=== PATIENT | female | born 1960 | race Two or more races ===

== ENCOUNTER → 2017-02-07 | Outpatient (REF) | payer MEDICARE, BC ==
[2017-02-15 00:07] LABS: BENZODIAZEPINES, URINE SCREEN See Final Results ng/mL (Cutoff=200); METHADONE, URINE SCREEN Negative ng/mL (Cutoff=300); pH, URINE 7.6 (4.5-8.9)
== END ==
LOC: M SFHCPLAZ 15:31
PROVIDERS: ATTEND Family Medicine
DX: Z51.81 Encounter for therapeutic drug level monitoring (principal); Z79.899 Other long term (current) drug therapy
CPT/HCPCS: 80307; G0463

== ENCOUNTER 2017-08-14 07:21 | Day surgery (SDC) | payer MEDICARE ==
[~2017-08-14] VITALS: Ht 157.5 cm; Wt 69.4 kg
[~2017-08-14 07:21] MED LIST: ADVI200T PO; EFFE150C PO; FISH1000 PO; VITA100072 PO; VITA500046 PO
[2017-08-14] MEDS ORDERED: ACETAMINOPHEN 650 MG SUPP PR ONE (07:30)
[2017-08-14] MEDS ORDERED: LR 1,000 ML IV SCH ×2 (07:30→09:30)
[2017-08-14] MEDS ORDERED: DIAZ5TAB (08:03)
[2017-08-14] MEDS ORDERED: fentaNYL 100 MCG/2 ML INJECTION (J3010) As Ordered ONE (08:15)
[2017-08-14] MEDS ORDERED: MIDAZOLAM INJ 5 MG/ML VIAL (J2250) As Ordered ONE (08:15)
[2017-08-14] MEDS ORDERED: PROPOFOL 200 MG/20 ML VIAL As Ordered ONE (08:15)
[2017-08-14] MEDS ORDERED: ACETAMINOPHEN 650 MG SUPP As Ordered ONE (08:19)
[2017-08-14 08:23] LABS: MEAN CORPUSCULAR HEMOGLOBIN 34.5 pg (27.0-33.0); MEAN CORPUSCULAR HGB CONC 34.2 g/dl (32.0-36.5); MEAN CORPUSCULAR VOLUME 100.7 fl (80.0-96.0); WHITE BLOOD COUNT 7.2 10^3/uL (4.0-10.0)
[2017-08-14] MEDS ORDERED: IBUP80TA PO (08:46)
[2017-08-14] MEDS ORDERED: KETOROLAC 30 MG/ML VIAL (J1885) As Ordered ONE (09:18)
[2017-08-14] MEDS ORDERED: MORPHINE 2 MG/ML 1ML SYRINGE As Ordered ONE (09:27)
[2017-08-14] MEDS ORDERED: KETOROLAC 30 MG/ML VIAL (J1885) IV PRN (09:30)
[2017-08-14] MEDS ORDERED: fentaNYL 100 MCG/2 ML INJECTION (J3010) IV PRN (09:30)
[2017-08-14] MEDS ORDERED: ONDANSETRON 4MG/2ML VIAL (J2405) IV PRN (09:30)
[2017-08-14] MEDS: MORPHINE 2 MG/ML 1ML SYRINGE IV SCH ×2 (09:30→10:32)
[2017-08-14] MEDS ORDERED: diphenhydrAMINE INJ 50MG/ML VIAL (J1200) As Ordered ONE (09:38)
[2017-08-14] MEDS ORDERED: diphenhydrAMINE INJ 50MG/ML VIAL (J1200) IV ONE (09:45)
[2017-08-14] MEDS ORDERED: PERCOCET 5MG/325MG TAB PO PRN (10:00)
--- NOTE | 2017-08-14 10:06 | RO ---
DATE OF PROCEDURE: 08/14/2017 PREOPERATIVE DIAGNOSIS: Postmenopausal bleeding. POSTOPERATIVE DIAGNOSES: 1. Postmenopausal bleeding. 2. Cervical stenosis. PROCEDURE: Dilatation and curettage (D and C), hysteroscopy. SURGEON: Dr. Ronald Rodriguez SENIOR FUNCTIONAL ANALYST: ANESTHESIA: Monitored anesthesia care (MAC). COMPLICATIONS: None. ESTIMATED BLOOD LOSS: Less than 10 mL. SPECIMEN SENT TO THE LAB: Endometrial curettings. Rachel is a 56-year-old with postmenopausal bleeding. After counseling, a decision was made for D and C and hysteroscopy. DESCRIPTION OF PROCEDURE: After obtaining informed consent, the patient was taken to the operating room where anesthetic was found to be adequate. She was then draped and prepped in the usual sterile fashion in dorsal lithotomy position. At this point, a straight catheter of the bladder was performed for approximately 75 mL of very concentrated urine. A weighted speculum was placed in the posterior fornix of the vagina. Using a Arriola retractor, the anterior lip of the cervix was then grasped with a ring forceps. Then, the cervix was serially dilated using a small probe. Then, the normal uterine dilators. The uterus was sounded to approximately 6 cm in size. Cervix serially dilated. Hysteroscope was inserted. Atrophic endometrial lining noted. A sharp curettage was done. The tissues were sent to pathology for final diagnosis. Good hemostasis noted. At this point, all instruments removed and the patient was transferred to the recovery room in stable condition.
[2017-08-14 10:40] VITALS: BP 144/86
[2017-08-14] MEDS ORDERED: IBUPROFEN 800 MG TAB PO SCH (15:00)
== END 2017-08-14 10:43 | disposition home or self-care (01) ==
LOC: M SDC 07:21
PROVIDERS: ATTEND Obstetrics & Gynecology
DX: N95.0 Postmenopausal bleeding (principal); N88.2 Stricture and stenosis of cervix uteri; M50.23 Other cervical disc displacement, cervicothoracic region; M51.26 Other intervertebral disc displacement, lumbar region; F41.9 Anxiety disorder, unspecified; R51 Headache; Z79.899 Other long term (current) drug therapy; Z78.0 Asymptomatic menopausal state; Z72.0 Tobacco use
CPT/HCPCS: 36415; 58558; 85027; 86850; 86900; 86901; 88305; 96374; 96375; J1200; J1885; J2250; J2405; J3010

== ENCOUNTER → 2018-01-30 | Outpatient (CLI) | payer MEDICARE | LOC: M RAD 13:51 | DX: F17.210 Nicotine dependence, cigarettes, uncomplicated (principal) | CPT/HCPCS: G0297 ==

== ENCOUNTER → 2018-02-01 | Outpatient (REF) | payer MEDICARE ==
[2018-02-01 18:12] LABS: APPEARANCE, URINE CLEAR (CLEAR); BACTERIA, URINE AUTO NEGATIVE (NEGATIVE); BILIRUBIN, URINE AUTO NEGATIVE (NEGATIVE); BLOOD, URINE BLOOD 1+ (NEGATIVE); COLOR, URINE STRAW (YELLOW); GLUCOSE, URINE (UA) AUTO NEGATIVE (NEGATIVE); KETONE, URINE AUTO NEGATIVE (NEGATIVE); LEUKOCYTE ESTERASE, URINE AUTO NEGATIVE (NEGATIVE); NITRITE, URINE AUTO NEGATIVE (NEGATIVE); PROTEIN, URINE AUTO NEGATIVE (NEGATIVE); RBC, URINE AUTO 1 /HPF (0-3); SPECIFIC GRAVITY URINE AUTO 1.002 (1.002-1.035); SQUAMOUS EPITHELIAL CELL UR AU 1 /HPF (0-6); UROBILINOGEN, URINE AUTO 0.2 mg/dL (0.0-2.0); WBC, URINE AUTO 0 /HPF (0-3)
== END ==
LOC: M SFHCPLAZ 16:51
DX: R35.0 Frequency of micturition (principal)
CPT/HCPCS: 81001

== ENCOUNTER → 2018-02-25 | Outpatient (CLI) | payer MEDICARE | LOC: M RAD 15:41 | DX: M25.552 Pain in left hip (principal); R93.6 Abnormal findings on diagnostic imaging of limbs | CPT/HCPCS: 73502 ==

== ENCOUNTER → 2018-03-12 | Outpatient (CLI) | payer MEDICARE | LOC: M RAD 09:51 | DX: S32.415A Nondisplaced fracture of anterior wall of left acetabulum, initial encounter for closed fracture (principal); R60.0 Localized edema; M51.36 Other intervertebral disc degeneration, lumbar region; M48.061 Spinal stenosis, lumbar region without neurogenic claudication; M51.26 Other intervertebral disc displacement, lumbar region; M51.27 Other intervertebral disc displacement, lumbosacral region; Q76.49 Other congenital malformations of spine, not associated with scoliosis; S79.912D Unspecified injury of left hip, subsequent encounter; R29.898 Other symptoms and signs involving the musculoskeletal system; J98.11 Atelectasis; M19.041 Primary osteoarthritis, right hand; M19.042 Primary osteoarthritis, left hand; M25.741 Osteophyte, right hand; M25.742 Osteophyte, left hand; M79.641 Pain in right hand; M79.642 Pain in left hand; W19.XXXA Unspecified fall, initial encounter; Y92.9 Unspecified place or not applicable; Y93.9 Activity, unspecified | CPT/HCPCS: 72148 ==

== ENCOUNTER → 2018-03-12 | Outpatient (CLI) | payer MEDICARE | LOC: M RAD 09:57 | DX: M19.041 Primary osteoarthritis, right hand (principal); M19.042 Primary osteoarthritis, left hand; M25.741 Osteophyte, right hand; M25.742 Osteophyte, left hand; M79.641 Pain in right hand; M79.642 Pain in left hand ==

== ENCOUNTER → 2018-08-19 | Outpatient (REF) | payer MEDICARE | LOC: M SFHCPLAZ 12:17 | DX: C44.519 Basal cell carcinoma of skin of other part of trunk (principal); C44.622 Squamous cell carcinoma of skin of right upper limb, including shoulder; L57.8 Other skin changes due to chronic exposure to nonionizing radiation; D22.5 Melanocytic nevi of trunk; L57.0 Actinic keratosis; J34.89 Other specified disorders of nose and nasal sinuses | CPT/HCPCS: 88305 ==

== ENCOUNTER → 2018-09-10 | Outpatient (CLI) | payer MEDICARE | LOC: M RAD 14:16 | DX: M48.062 Spinal stenosis, lumbar region with neurogenic claudication (principal); M51.36 Other intervertebral disc degeneration, lumbar region; M51.26 Other intervertebral disc displacement, lumbar region | CPT/HCPCS: 72082 ==

== ENCOUNTER → 2018-09-24 | Outpatient (REF) | payer MEDICARE | LOC: M LAB REF 18:42 | DX: D23.61 Other benign neoplasm of skin of right upper limb, including shoulder (principal); L90.5 Scar conditions and fibrosis of skin | CPT/HCPCS: 88305 ==

== ENCOUNTER → 2018-11-12 | Outpatient (CLI) | payer MEDICARE ==
[~2018-11-12] MED LIST changes: +CYCL10TA PO; +DIAZ5TAB; -EFFE150C PO; +EFFE150C2 PO; +IBUP80TA PO; +PERC5TAB12 PO; +ZITHTAB PO
[2018-11-12 08:55] LABS: CHOLESTEROL RISK RATIO 2.848 (<5); FREE T4 0.69 NG/DL (0.76-1.46); MAGNESIUM LEVEL 2.2 MG/DL (1.8-2.4); THYROID STIMULATING HORMONE 1.41 uIU/ML (0.358-3.740)
[2018-11-12 09:36] LABS: TOTAL 25(OH) VITAMIN D 31.7 NG/ML (30.0-100.0)
== END ==
LOC: M LAB 07:28
PROVIDERS: ATTEND Family Medicine
DX: Z01.818 Encounter for other preprocedural examination (principal); L67.8 Other hair color and hair shaft abnormalities; Z13.220 Encounter for screening for lipoid disorders; E55.9 Vitamin D deficiency, unspecified; E53.8 Deficiency of other specified B group vitamins; Z13.1 Encounter for screening for diabetes mellitus; M47.26 Other spondylosis with radiculopathy, lumbar region; M48.062 Spinal stenosis, lumbar region with neurogenic claudication; M54.5 Low back pain; F33.1 Major depressive disorder, recurrent, moderate; F41.9 Anxiety disorder, unspecified; E78.5 Hyperlipidemia, unspecified; M19.90 Unspecified osteoarthritis, unspecified site; B00.1 Herpesviral vesicular dermatitis; D75.89 Other specified diseases of blood and blood-forming organs; R31.29 Other microscopic hematuria

== ENCOUNTER → 2018-11-12 | Outpatient (REF) | payer MEDICARE ==
[2018-11-12 19:38] LABS: HEMATOCRIT 39.7 % (36.0-47.0)
[2018-11-12 19:40] LABS: APPEARANCE, URINE CLEAR (CLEAR); BACTERIA, URINE AUTO NEGATIVE (NEGATIVE); BILIRUBIN, URINE AUTO NEGATIVE (NEGATIVE); BLOOD, URINE BLOOD NEGATIVE (NEGATIVE); COLOR, URINE AMBER (YELLOW); GLUCOSE, URINE (UA) AUTO NEGATIVE (NEGATIVE); KETONE, URINE AUTO TRACE mg/dL (NEGATIVE); LEUKOCYTE ESTERASE, URINE AUTO NEGATIVE (NEGATIVE); NITRITE, URINE AUTO NEGATIVE (NEGATIVE); PROTEIN, URINE AUTO NEGATIVE (NEGATIVE); RBC, URINE AUTO 13 /HPF (0-3); SQUAMOUS EPITHELIAL CELL UR AU 1 /HPF (0-6); TRANSITIONAL EPITHELIAL AUTO <1 /HPF; WBC, URINE AUTO 0 /HPF (0-3)
[2018-11-12 21:13] LABS: FREE T4 0.69 NG/DL (0.76-1.46); THYROID STIMULATING HORMONE 1.3 uIU/ML (0.358-3.740)
== END ==
LOC: M SFHCPLAZ 13:59 → EEVIPCON 13:59
PROVIDERS: ATTEND Family Medicine
DX: Z01.818 Encounter for other preprocedural examination (principal); D75.89 Other specified diseases of blood and blood-forming organs; R31.29 Other microscopic hematuria

== ENCOUNTER → 2018-11-12 | Outpatient (CLI) | payer MEDICARE ==
[2018-11-12 08:15] LABS: BASO # 0.1 10^3/uL (0.0-0.2); BASO % 0.8 % (0.0-1.0); EOS # 0.2 10^3/uL (0.0-0.50); EOS % 3.3 % (0.0-3.0); HEMATOCRIT 38.4 % (36.0-47.0); HEMOGLOBIN 12.7 g/dl (12.0-15.5); LYMPH # 1.6 10^3/uL (1.5-4.5); LYMPH % 24.5 % (24.0-44.0); MEAN CORPUSCULAR HEMOGLOBIN 34.2 pg (27.0-33.0); MEAN CORPUSCULAR HGB CONC 33.1 g/dl (32.0-36.5); MEAN CORPUSCULAR VOLUME 103.5 fl (80.0-96.0); MONO # 0.5 10^3/uL (0.0-0.8); MONO % 7.9 % (0.0-5.0); NEUTROPHILS # 4.1 10^3/uL (1.8-7.7); PLATELET COUNT, AUTOMATED 236 10^3/uL (150-450); RED BLOOD COUNT 3.71 10^6/uL (4.00-5.40); WHITE BLOOD COUNT 6.6 10^3/uL (4.0-10.0)
[2018-11-12 08:19] LABS: AMORPHOUS SEDIMENT SMALL (NEGATIVE); APPEARANCE, URINE HAZY (CLEAR); BACTERIA, URINE AUTO NEGATIVE (NEGATIVE); BILIRUBIN, URINE AUTO NEGATIVE (NEGATIVE); BLOOD, URINE BLOOD NEGATIVE (NEGATIVE); COLOR, URINE YELLOW (YELLOW); GLUCOSE, URINE (UA) AUTO NEGATIVE (NEGATIVE); KETONE, URINE AUTO NEGATIVE (NEGATIVE); LEUKOCYTE ESTERASE, URINE AUTO NEGATIVE (NEGATIVE); NITRITE, URINE AUTO NEGATIVE (NEGATIVE); PROTEIN, URINE AUTO NEGATIVE (NEGATIVE); RBC, URINE AUTO 5 /HPF (0-3); SPECIFIC GRAVITY URINE AUTO 1.018 (1.002-1.035); SQUAMOUS EPITHELIAL CELL UR AU 1 /HPF (0-6); UROBILINOGEN, URINE AUTO 0.2 mg/dL (0.0-2.0); WBC, URINE AUTO 0 /HPF (0-3)
[2018-11-12 08:30] LABS: INR 0.93; PROTHROMBIN TIME 12.6 SECONDS (12.1-14.4)
[2018-11-12 08:31] LABS: PARTIAL THROMBOPLASTIN TIME 33.7 SECONDS (25.4-37.6)
[2018-11-12 08:35] LABS: HEMOGLOBIN A1c 5.4 %
[2018-11-12 08:47] LABS: ALBUMIN 3.7 GM/DL (3.2-5.2); ALT/SGPT 26 U/L (12-78); BILIRUBIN,TOTAL 0.3 MG/DL (0.2-1.0); BLOOD UREA NITROGEN 11 MG/DL (7-18); CALCIUM LEVEL 9.1 MG/DL (8.8-10.2); CARBON DIOXIDE LEVEL 29 MEQ/L (21-32); CHLORIDE LEVEL 105 MEQ/L (98-107); CREATININE FOR GFR 0.81 MG/DL (0.55-1.30); GLOMERULAR FILTRATION RATE > 60.0 (>45); GLUCOSE, FASTING 106 MG/DL (70-100); POTASSIUM SERUM 4.2 MEQ/L (3.5-5.1); SODIUM LEVEL 138 MEQ/L (136-145)
== END ==
LOC: M LAB 07:24
PROVIDERS: ATTEND Physician Assistant
DX: Z01.818 Encounter for other preprocedural examination (principal); M48.062 Spinal stenosis, lumbar region with neurogenic claudication; M47.26 Other spondylosis with radiculopathy, lumbar region; M54.5 Low back pain; F33.1 Major depressive disorder, recurrent, moderate; F41.9 Anxiety disorder, unspecified; E78.5 Hyperlipidemia, unspecified; M19.90 Unspecified osteoarthritis, unspecified site; E55.9 Vitamin D deficiency, unspecified; E83.42 Hypomagnesemia; B00.1 Herpesviral vesicular dermatitis; D75.89 Other specified diseases of blood and blood-forming organs; R31.29 Other microscopic hematuria

== ENCOUNTER → 2019-01-14 | Outpatient (REF) | payer MEDICARE ==
[2019-01-14 14:03] LABS: AMORPHOUS SEDIMENT SMALL (NEGATIVE); APPEARANCE, URINE HAZY (CLEAR); BACTERIA, URINE AUTO NEGATIVE (NEGATIVE); BILIRUBIN, URINE AUTO 1+ (NEGATIVE); BLOOD, URINE BLOOD NEGATIVE (NEGATIVE); CALCIUM OXALATE CRYSTALS SMALL; COLOR, URINE AMBER (YELLOW); GLUCOSE, URINE (UA) AUTO NEGATIVE (NEGATIVE); KETONE, URINE AUTO TRACE mg/dL (NEGATIVE); LEUKOCYTE ESTERASE, URINE AUTO NEGATIVE (NEGATIVE); MUCUS, URINE SMALL (NEGATIVE); NITRITE, URINE AUTO NEGATIVE (NEGATIVE); PROTEIN, URINE AUTO 1+ mg/dL (NEGATIVE); RBC, URINE AUTO 18 /HPF (0-3); SQUAMOUS EPITHELIAL CELL UR AU 2 /HPF (0-6); WBC, URINE AUTO 2 /HPF (0-3)
[2019-01-14 14:58] LABS: FREE T4 0.8 NG/DL (0.76-1.46); THYROID STIMULATING HORMONE 1.55 uIU/ML (0.358-3.740)
== END ==
LOC: M SFHCPLAZ 12:56
PROVIDERS: ATTEND Family Medicine
DX: R31.29 Other microscopic hematuria (principal); R79.89 Other specified abnormal findings of blood chemistry

== ENCOUNTER → 2019-01-23 | Outpatient (CLI) | payer MEDICARE ==
--- NOTE | 2019-01-28 13:50 | DEXA ---
AP SPINE L1 - L4 1.250 0.4 1.7 LT FEMUR TOTAL 1.004 0.0 0.9 LT NECK 0.896 -1.0 0.2 RT FEMUR TOTAL 0.986 -0.2 0.8 RT NECK 0.880 -1.1 0.1 TOTAL BODY TOTAL OTHER COMMENTS: Normal bone densitometry of the spine. There is low bone density of the hips. The density of the spine has decreased 4.6% since 07/16/2007. The density of the left hip has decreased 13.1% since 07/16/2007. The density of the right hip has decreased 11.8% since 07/16/2007. The decreased density of the spine does represent a significant change. The decreased density of the left hip does represent a significant change. The decreased density of the right hip does represent a significant change. FOLLOW-UP: Recommendation for the next bone density exam: 2 years. GIRMA
--- NOTE | 2019-01-29 14:24 | REPMRS ---
Patient History The patient states she has not had a clinical breast exam in over a year. Patient is postmenopausal, has history of basal and squamous cell skin cancer at age 57, and is nulliparous. Family history of breast cancer at age 70 in maternal grandmother, pancreatic cancer at age 70 in paternal uncle. Benign lumpectomy of the right breast, 1993. Taking estrogen for 5 years. 3D TOMOSYNTHESIS WAS PERFORMED. Digital Woman Screen Mammo: January 23, 2019 - Exam #: [id number] Bilateral CC and MLO view(s) were taken. Technologist: Karla Gleason, Technologist Prior study comparison: 2017, bilateral screening 3D/tomosynthesis, performed at [facility]. FINDINGS: There are scattered fibroglandular densities. There has been no change in the appearance of the mammogram from the prior studies. There is a mild amount of residual fibroglandular tissue which is fairly symmetric. There is no interval development of dominant mass, architectural distortion, or clustered microcalcification suggestive of malignancy. Assessment: BI-RADS/ACR category 1 mammogram. Negative Mammogram. Recommendation Routine screening mammogram in 1 year (for women over age 40). This mammogram was interpreted with the aid of an FDA-approved computer-aided dectection system. Electronically Signed By: Isai Oliveira MD 01/29/19 [id number]
== END ==
LOC: M WHC 14:27
PROVIDERS: ATTEND Family Medicine
DX: Z12.31 Encounter for screening mammogram for malignant neoplasm of breast (principal); Z13.820 Encounter for screening for osteoporosis; M85.80 Other specified disorders of bone density and structure, unspecified site; S22.41XD Multiple fractures of ribs, right side, subsequent encounter for fracture with routine healing; X58.XXXD Exposure to other specified factors, subsequent encounter; Y92.89 Other specified places as the place of occurrence of the external cause; Z78.0 Asymptomatic menopausal state; Z85.828 Personal history of other malignant neoplasm of skin; Z92.23 Personal history of estrogen therapy

== ENCOUNTER → 2019-01-30 | Outpatient (REF) | payer MEDICARE | LOC: M LAB REF 18:32 | PROVIDERS: ATTEND Dermatology | DX: C44.719 Basal cell carcinoma of skin of left lower limb, including hip (principal) ==

== ENCOUNTER → 2019-01-31 | Outpatient (CLI) | payer MEDICARE ==
[~2019-01-31] MED LIST changes: +ISOVUE-370 76% 125ML VIAL (Q9967 PER ML) As Ordered ONE
--- NOTE | 2019-01-31 15:08 | REP ---
Clinical: Microscopic hematuria. Technique: Axial precontrast, contrast enhanced, and delayed images of the abdomen and pelvis using 100 ml Isovue 370 intravenous contrast material with coronal and sagittal re-formations as well as 3-D CT urogram. Comparison: 02/12/2018. Findings: Evaluation of the urinary tract system including kidneys/ureters and bladder appears normal. Specifically, no hydroureteronephrosis, perinephric stranding, intrarenal or obstructing ureteral calculi are identified. No cystic or mass lesions are identified. Delayed images demonstrate normal collecting system cannot find. Bladder is grossly unremarkable. Liver, spleen, pancreas, gallbladder, and bilateral adrenal glands are normal. The enteric system is without obstruction or acute inflammatory process. Scattered sigmoid diverticula noted without acute diverticulitis. Pelvis demonstrates normal bladder and age-appropriate uterus/adnexa. No pelvic fluid or ascites. No free air. No adenopathy. Atherosclerotic changes to the aorta and vasculature without aneurysm or dissection. Musculoskeletal structures demonstrate age-related degenerative changes and evidence for prior partial lumbar laminectomy. Impression: 1. Normal appearance to the urinary tract system in all phases of enhancement. 2. Few scattered sigmoid diverticula without acute diverticulitis. Electronically Signed by Deep Patel MD 01/31/2019 02:59 P
== END ==
LOC: M RAD 13:56
PROVIDERS: ATTEND Family Medicine
DX: R31.29 Other microscopic hematuria (principal); K57.30 Diverticulosis of large intestine without perforation or abscess without bleeding
CPT/HCPCS: 74178; Q9967

== ENCOUNTER → 2019-02-11 | Outpatient (REF) | payer MEDICARE ==
[~2019-02-11] MED LIST changes: -ISOVUE-370 76% 125ML VIAL (Q9967 PER ML) As Ordered ONE; +VITA100018 PO; -VITA100072 PO
[2019-02-11 18:36] LABS: APPEARANCE, URINE CLEAR (CLEAR); BACTERIA, URINE AUTO 1+ (NEGATIVE); BILIRUBIN, URINE AUTO NEGATIVE (NEGATIVE); BLOOD, URINE BLOOD NEGATIVE (NEGATIVE); COLOR, URINE STRAW (YELLOW); GLUCOSE, URINE (UA) AUTO NEGATIVE (NEGATIVE); KETONE, URINE AUTO NEGATIVE (NEGATIVE); LEUKOCYTE ESTERASE, URINE AUTO NEGATIVE (NEGATIVE); NITRITE, URINE AUTO NEGATIVE (NEGATIVE); PROTEIN, URINE AUTO NEGATIVE (NEGATIVE); RBC, URINE AUTO 0 /HPF (0-3); SPECIFIC GRAVITY URINE AUTO 1.003 (1.002-1.035); SQUAMOUS EPITHELIAL CELL UR AU 0 /HPF (0-6); UROBILINOGEN, URINE AUTO 0.2 mg/dL (0.0-2.0); WBC, URINE AUTO 0 /HPF (0-3)
== END ==
LOC: M SMT 17:20
PROVIDERS: ATTEND Nurse Practitioner Family
DX: R31.29 Other microscopic hematuria (principal)

== ENCOUNTER → 2019-05-13 | Outpatient (CLI) | payer MEDICARE ==
--- NOTE | 2019-05-14 07:58 | REP ---
Low-dose screening chest CT without contrast: History: Nicotine dependence. Comparison chest CT study February 12, 2018 and January 30, 2018. CT findings: There are scattered mild emphysematous bullous changes in the lower lobes bilaterally. These are unchanged from the study done January 30, 2018. There are multiple healed rib fractures noted on the right. The right 7th anterolateral rib fracture is ununited. No pulmonary nodule or mass lesion has developed. Study is otherwise unremarkable. Impression: Lung-RADS category 2 benign findings. Repeat screening study recommended in 1 year. Electronically Signed by Junior Sahni MD 05/14/2019 09:28 A
== END ==
LOC: M RAD 13:50
PROVIDERS: ATTEND Family Medicine
DX: Z12.2 Encounter for screening for malignant neoplasm of respiratory organs (principal); F17.210 Nicotine dependence, cigarettes, uncomplicated

== ENCOUNTER 2019-06-05 08:13 | Day surgery (SDC) | payer MEDICARE ==
[~2019-06-05] VITALS: Ht 157.5 cm; Wt 73.5 kg
[~2019-06-05 08:13] MED LIST changes: +ESTR1TAB PO; +FOLI1TAB11 PO; +MAGN400C PO; +NS 1,000 ML IV ONE; +PROG1CAP8 PO; +VITA-158 PO; +VITA400C53 PO; +VITA500038 PO
[2019-06-05] MEDS ORDERED: PROPOFOL 200 MG/20 ML VIAL As Ordered ONE (09:08)
--- NOTE | 2019-06-05 09:20 | ROOR ---
Patient Name: Rachel Escalera Procedure Date: 06/05/2019 9:03 AM Date of : 1960 Age: 58 Room: [facility] Gender: Female Note Status: Finalized Procedure: Colonoscopy Indications: Clinically significant diarrhea of unexplained origin Providers: Bradley Herrmann Jr, MD Referring MD: Pennie Harrell MD Requesting Provider: Medicines: Propofol per Anesthesia Complications: No immediate complications. Procedure: Pre-Anesthesia Assessment: - Prior to the procedure, a History and Physical was performed, and patient medications and allergies were reviewed. The patient is competent. The risks and benefits of the procedure and the sedation options and risks were discussed with the patient. All questions were answered and informed consent was obtained. Patient identification and proposed procedure were verified by the physician and the nurse in the pre-procedure area and in the procedure room. Mental Status Examination: alert and oriented. Airway Examination: normal oropharyngeal airway and neck mobility. Respiratory Examination: clear to auscultation. CV Examination: normal. ASA Grade Assessment: II - A patient with mild systemic disease. After reviewing the risks and benefits, the patient was deemed in satisfactory condition to undergo the procedure. The anesthesia plan was to use moderate sedation / analgesia (conscious sedation). Immediately prior to administration of medications, the patient was re-assessed for adequacy to receive sedatives. The heart rate, respiratory rate, oxygen saturations, blood pressure, adequacy of pulmonary ventilation, and response to care were monitored throughout the procedure. The physical status of the patient was re-assessed after the procedure. The Colonoscope was introduced through the anus and advanced to the cecum, identified by appendiceal orifice and ileocecal valve. The colonoscopy was performed without difficulty. The patient tolerated the procedure well. The quality of the bowel preparation was adequate. Findings: The rectum, sigmoid colon, descending colon, ascending colon, cecum, appendiceal orifice and ileocecal valve appeared normal. Two polyps were found in the recto-sigmoid colon and transverse colon. The polyps were small in size. These polyps were removed with a cold snare. Resection and retrieval were complete. Impression: - The rectum, sigmoid colon, descending colon, ascending colon, cecum, appendiceal orifice and ileocecal valve are normal. - Two small polyps at the recto-sigmoid colon and in the transverse colon, removed with a cold snare. Resected and retrieved. Recommendation: - Repeat colonoscopy in 5 years for surveillance based on pathology results. Bradley Herrmann MD Bradley Herrmann Jr, MD 06/05/2019 9:20:33 AM Electronically signed by Bradley Herrmann Jr, MD Number of Addenda: 0 Note Initiated On: 06/05/2019 9:03 AM Estimated Blood Loss: Estimated blood loss: none.
[2019-06-05 09:40] VITALS: BP 142/70
== END 2019-06-05 10:04 | disposition home or self-care (01) ==
LOC: M OPP 08:13
PROVIDERS: ATTEND Surgery
DX: R19.7 Diarrhea, unspecified (principal); D12.6 Benign neoplasm of colon, unspecified; R14.0 Abdominal distension (gaseous); F41.9 Anxiety disorder, unspecified; F32.9 Major depressive disorder, single episode, unspecified; M54.9 Dorsalgia, unspecified; G89.29 Other chronic pain; Z79.899 Other long term (current) drug therapy; Z87.891 Personal history of nicotine dependence

== ENCOUNTER → 2019-10-22 | Outpatient (REF) | payer MEDICARE ==
[~2019-10-22] MED LIST changes: -NS 1,000 ML IV ONE
== END ==
LOC: M PLALAB 14:04
PROVIDERS: ATTEND Nurse Practitioner Women's Health
DX: Z12.4 Encounter for screening for malignant neoplasm of cervix (principal)
CPT/HCPCS: 87624; G0123

== ENCOUNTER → 2019-11-18 | Outpatient (REF) | payer OTHER | LOC: M LABDRAWP 14:48 | PROVIDERS: ATTEND Orthopaedic Surgery | DX: R89.9 Unspecified abnormal finding in specimens from other organs, systems and tissues (principal) ==

== ENCOUNTER → 2019-11-18 | Outpatient (REF) | payer OTHER ==
[2019-11-18 15:31] LABS: HEMATOCRIT 42.5 % (36.0-47.0)
[2019-11-18 16:30] LABS: CHOLESTEROL RISK RATIO 3.164 (<5); FREE T4 0.72 NG/DL (0.76-1.46); MAGNESIUM LEVEL 1.9 MG/DL (1.8-2.4); THYROID STIMULATING HORMONE 1.42 uIU/ML (0.358-3.740)
[2019-11-18 16:38] LABS: TOTAL 25(OH) VITAMIN D 55.8 NG/ML (30.0-100.0)
== END ==
LOC: M SFHCPLAZ 14:37
PROVIDERS: ATTEND Family Medicine
DX: L65.9 Nonscarring hair loss, unspecified (principal); E78.2 Mixed hyperlipidemia; R20.2 Paresthesia of skin; E55.9 Vitamin D deficiency, unspecified; R89.9 Unspecified abnormal finding in specimens from other organs, systems and tissues

== ENCOUNTER → 2020-02-23 | Outpatient (CLI) | payer OTHER ==
[~2020-02-23] MED LIST changes: +CYCL-707 PO; -CYCL10TA PO
[2020-02-23 17:09] LABS: ALBUMIN 3.2 GM/DL (3.2-5.2); ALT/SGPT 32 U/L (12-78); BILIRUBIN,TOTAL 0.1 MG/DL (0.2-1.0); BLOOD UREA NITROGEN 15 MG/DL (7-18); CARBON DIOXIDE LEVEL 29 MEQ/L (21-32); CHLORIDE LEVEL 100 MEQ/L (98-107); GLOMERULAR FILTRATION RATE > 60.0 (>45); GLUCOSE, FASTING 114 MG/DL (70-100); SODIUM LEVEL 135 MEQ/L (136-145); TOTAL PROTEIN 7.1 GM/DL (6.4-8.2)
== END ==
LOC: M LAB 16:19
PROVIDERS: ATTEND Orthopaedic Surgery
DX: M48.061 Spinal stenosis, lumbar region without neurogenic claudication (principal)

== ENCOUNTER 2020-03-01 08:52 | Emergency (ER) | payer OTHER ==
[2020-03-01] MEDS ORDERED: OXYC10TA3 (09:02)
[2020-03-01] MEDS ORDERED: TIZA4TAB4 (09:02)
[2020-03-01] MEDS ORDERED: LIDOCAINE 5% (LIDODERM) PATCH TD ONE (09:30)
[2020-03-01] MEDS ORDERED: KETOROLAC 60 MG/2 ML VIAL IM ONE (09:30)
[2020-03-01] MEDS ORDERED: NORCO, ANEXSIA 5/325MG TABLET (HYDROcodone/ACETAMINOPHEN) PO ONE (09:30)
[2020-03-01] MEDS ORDERED: methylPREDNISolone INJ 125 MG/2 ML VIAL (J2930) IM ONE (09:30)
[2020-03-01] MEDS ORDERED: GABAPENTIN 300 MG CAP PO ONE (09:45)
[2020-03-01 10:08] VITALS: BP 152/67
[2020-03-01] MEDS ORDERED: CYCL-707 PO (10:21)
[2020-03-01] MEDS ORDERED: NEUR300C PO (10:21)
[2020-03-01] MEDS ORDERED: NORC1TAB7 PO (10:21)
[2020-03-01] MEDS ORDERED: LIDO5DIS41 TD (10:22)
[2020-03-01] MEDS ORDERED: **NOTE PATIENT COMMENT** MISC XX SCH (21:00)
== END 2020-03-01 10:41 | disposition home or self-care (01) ==
LOC: M ED 08:52
DX: M54.41 Lumbago with sciatica, right side (principal); G89.29 Other chronic pain; Z79.899 Other long term (current) drug therapy
CPT/HCPCS: 36415; 96372; 99283; J1885; J2930

== ENCOUNTER → 2020-04-02 | Outpatient (REF) | payer OTHER ==
[~2020-04-02] MED LIST changes: +LIDO5DIS41 TD; +NEUR300C PO; +NORC1TAB7 PO; +OXYC10TA3; +TIZA4TAB4
[2020-04-02 17:48] LABS: ALBUMIN 3.5 GM/DL (3.2-5.2); ALT/SGPT 24 U/L (12-78); BILIRUBIN,TOTAL 0.5 MG/DL (0.2-1.0); BLOOD UREA NITROGEN 12 MG/DL (7-18); CALCIUM LEVEL 9.3 MG/DL (8.8-10.2); CARBON DIOXIDE LEVEL 29 MEQ/L (21-32); CHLORIDE LEVEL 103 MEQ/L (98-107); CREATININE FOR GFR 0.83 MG/DL (0.55-1.30); FREE T4 1.06 NG/DL (0.76-1.46); GLOMERULAR FILTRATION RATE > 60.0 (>45); GLUCOSE, FASTING 97 MG/DL (70-100); POTASSIUM SERUM 4.3 MEQ/L (3.5-5.1); SODIUM LEVEL 139 MEQ/L (136-145); TOTAL PROTEIN 7.4 GM/DL (6.4-8.2)
== END ==
LOC: M PLALAB 14:21
PROVIDERS: ATTEND Family Medicine
DX: L65.9 Nonscarring hair loss, unspecified (principal)

== ENCOUNTER → 2020-04-02 | Outpatient (CLI) | payer OTHER ==
--- NOTE | 2020-04-03 08:19 | REPPI ---
REASON: Pain after trauma. There is a smoothly marginated, well-corticated ossific density distal to the distal tip of the medial malleolus. There is no acute fracture. The mortise is intact. There is no evidence of soft tissue swelling. Plantar and retrocalcaneal heel spurs are present. Degenerative changes are seen involving the imaged portion of the foot. IMPRESSION: Chronic changes as described above. Electronically Signed by Giorgi Rebollar DO 04/05/2020 09:53 A
--- NOTE | 2020-04-03 08:36 | REPPI ---
REASON FOR EXAM: Pain. COMPARISON: None. FINDINGS: No acute fracture or destructive osseous lesion. Electronically Signed by Giorgi Rebollar DO 04/05/2020 09:54 A
== END ==
LOC: M PLAIMG 14:24
PROVIDERS: ATTEND Family Medicine
DX: M79.604 Pain in right leg (principal); M25.571 Pain in right ankle and joints of right foot; L65.9 Nonscarring hair loss, unspecified
CPT/HCPCS: 36415; 73590; 73610; 80053; 84439; 84443; G0463

== ENCOUNTER → 2020-04-04 | Outpatient (CLI) | payer OTHER | LOC: M LABSMTC 11:14 | PROVIDERS: ATTEND Anesthesiology | DX: Z11.59 Encounter for screening for other viral diseases (principal) | CPT/HCPCS: C9803; U0003 ==

== ENCOUNTER → 2020-04-07 | Outpatient (CLI) | payer OTHER ==
[~2020-04-07] MED LIST changes: +BUPIVACAINE HCL 0.25% 30ML VIAL As Ordered ONE; +ISOVUE-M 300 61% 15ML VIAL As Ordered ONE; +LIDOCAINE 1% SDV 30ML VIAL As Ordered ONE; +dexameTHASONE 10MG/1ML VIAL PRES.FREE (J1100 PER 1MG) As Ordered ONE; +diazePAM 5 MG TAB As Ordered ONE; +diphenhydrAMINE 25MG CAP As Ordered ONE; +oxyCODONE 5MG TAB As Ordered ONE
--- NOTE | 2020-04-07 16:18 | REP ---
C-ARM VIEWS RIGHT SACROILIAC JOINT: Multiple C-arm views right sacroiliac joint performed during injection by Dr. Hobson. Needle overlies the right sacroiliac joint. There is evidence of prior surgery in the lower lumbar spine with metallic rods and multiple pedicle screws noted. 59 seconds fluoroscopy time utilized. Electronically Signed by Isai Oliveira MD 04/08/2020 07:20 P
--- NOTE | 2020-04-08 00:49 | ECWPNPC ---
PATIENT NAME: JAMES GRESHAM : 1960 GENDER: FEMALE VISIT DATE: 04/07/2020 DISCHARGE DATE: 04/07/20 1541 VISIT LOCKED DATE TIME: PHYSICIAN: KATJA RODRIGUEZ MD RESOURCE: KATJA RODRIGUEZ MD REASON FOR APPOINTMENT 1. RIGHT SIJ HISTORY OF PRESENT ILLNESS PAIN CENTER INTAKE QUESTIONS: DO YOU HAVE A HISTORY OF MRSA? :NO DO YOU TAKE A BLOOD THINNERS? :NO DO YOU HAVE ANY BLEEDING DISORDERS? :NO ANY NEW NUMBNESS OR WEAKNESS IN YOUR LEGS OR ARMS? :YES ANY PACEMAKER,DEFIBRILLATOR, OR DORSAL COLUMN STIMULATOR? :NO DO YOU HAVE ANY RASHES OR OPEN SORES? :NO ARE YOU ALLERGIC TO IV DYE? :NO ARE YOU DIABETIC? :NO ANY NEW PROBLEMS WITH YOUR MEDICATIONS? :NO HAVE YOU RECEIVED A VACCINE IN THE PAST 30 DAYS? :NO DO YOU PLAN TO RECEIVE A VACCINE IN THE NEXT 21 DAYS? :NO DO YOU NEED ANY PRESCRIPTION? :NO DO YOU TAKE ANY IMMUNOSUPPRESSIVE MEDICATIONS? :NO ANY HISTORY OF SEIZURES? :NO ANY HISTORY OF CARDIAC ISSUES OR EVENTS? :NO DO YOU HAVE SLEEP APNEA? :NO ANY RECENT HEAD INJURY? :NO DO YOU HAVE ANY NEW INFECTIONS? :NO WHEN DID YOU LAST EAT? : -THIS MORNING WHEN DID YOU LAST DRINK? : -1100 WHAT DID YOU LAST DRINK? : -WATER NAME OF PERSON DRIVING YOU HOME? : -MY GIRLFRIEND DO YOU HAVE ANY OTHER QUESTIONS OR CONCERNS? : - GENERAL: - - -. FALL RISK SCREENING: SCREENING :NO FALLS REPORTED IN THE LAST YEAR PAIN SCREENING: PATIENT HAS A COMPLAINT OF ACUTE OR CHRONIC PAIN :NO NURSING NOTE: - - -. CURRENT MEDICATIONS TAKING LYRICA 75 MG CAPSULE 1 CAPSULE ORALLY ONCE A DAY, NOTES: 04-07-20799 TAKING FLUTICASONE PROPIONATE 50 MCG/ACT SUSPENSION 1 SPRAY IN EACH NOSTRIL NASALLY TWICE A DAY, NOTES: NOT LATELY TAKING ACYCLOVIR 800 MG TABLET 1 TABLET NEEDED ORALLY TWICE A DAY, NOTES: NOT LATELY TAKING TRAZODONE HCL 50 MG TABLET 0.5 - 1 TABLET AT BEDTIME NEEDED ORALLY ONCE A DAY, NOTES: NOT LATELY TAKING MELOXICAM 7.5 MG TABLET 1 TABLET ORALLY ONCE A DAY, NOTES: 04-07-2000 TAKING OMEPRAZOLE 20 MG CAPSULE DELAYED RELEASE 1 CAPSULE 30 MINUTES BEFORE MORNING MEAL ORALLY ONCE A DAY, NOTES: 04-07-20899 TAKING DIAZEPAM 5 MG TABLET 1 TABLET NEEDED ORALLY BID; MDD _#2, NOTES: 04-07-20799 TAKING PROGESTERONE MICRONIZED 100 MG CAPSULE 1 CAPSULE AT BEDTIME ORALLY ONCE A DAY, NOTES: A COUPLE DAYS AGO TAKING VENLAFAXINE HCL ER 150 CAPSULE 1 CAPSULE WITH FOOD ORALLY ONCE A DAY, NOTES: 899 TAKING VENLAFAXINE HCL ER 75 MG CAPSULE EXTENDED RELEASE 24 HOUR 1 CAPSULE WITH FOOD ORALLY ONCE A DAY, NOTES: 04-06-20899 NOT-TAKING IBUPROFEN 800 MG TABLET 1 TABLET ORALLY TWICE TIMES A DAY, NOTES: NEEDS REFILL NOT-TAKING ESTRACE 0.5 MG TABLET 1 TABLET ORALLY DAILY NOT-TAKING TIZANIDINE HCL 4 MG TABLET 1 TABLET NEEDED ORALLY BEFORE BEDTIME MEDICATION LIST REVIEWED AND RECONCILED WITH THE PATIENT PAST MEDICAL HISTORY ANXIETY DEPRESSION CHRONIC PAIN IN NECK AND BACK ASCVD 10 YEAR RISK 3.1% IN 11/2019 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 SURGICAL HISTORY RIGHT SHOULDER FOR ROTATOR CUFF LEFT SHOULDER FOR BONE SPURS SURGERIES TO FEET FOR BONE SPURS ON TOES LAPAROSCOPY UTERINE BIOPSY-DODARD BONE SPUR LEFT SECOND TOE 01/20 BACK SURGERY 11/18/18 CYSTOSCOPY 02/2019 COLONOSCOPY - ADENOMATOUS POLYP/TUBULAR ADENOMA REMOVED, DR. HOLDER, REPEAT IN 5 YEARS 05/2019 BACK FUSION 11/2019 FAMILY HISTORY FATHER: , LUNG CANCER MOTHER: , LUNG CANCER; DEPRESSION SIBLINGS: ALIVE, SISTER HAD A PITUITARY TUMOR AND A STROKE HAS PASSED. 1 BROTHER(S) , 2 SISTER(S) . DENIES FAMILY HISTORY OF BREAST, COLON, OR OVARIAN CANCER. \\\\\\\\\\\\\\\\NNO FAMILY HX OF MELANOMA OR PANCREATIC CANCER. DENIES FAMILY HISTORY OF UROLOGICAL DX. HOSPITALIZATION/MAJOR DIAGNOSTIC PROCEDURE FOR SURGERIES VITAL SIGNS WT 140 LBS, HT 62 IN, BMI 25.60 INDEX, BP 120/80 MM HG, HR 110 /MIN, RR 18 /MIN, TEMP 98.0 F, OXYGEN SAT % 99%, SAFE IN ENV? (Y/N) Y, NA INITIALS AW 1321, REVIEWED BY: REBA. EXAMINATION GENERAL EXAMINATION: THE PATIENT IS ALERT, ORIENTED TIMES THREE AND COOPERATIVE. HEART SHOWS REGULAR RHYTHM, NO MURMURS AND NO GALLOPS. LUNGS ARE CLEAR TO AUSCULTATION. ASSESSMENTS SACROILIITIS, NOT ELSEWHERE CLASSIFIED - M46.1 (PRIMARY) SACROILIAC JOINT DYSFUNCTION - M53.3 TREATMENT SACROILIITIS, NOT ELSEWHERE CLASSIFIED [facility]ART FLUORO GUIDANCE (PAIN)[id number] PROCEDURES PAIN NURSING RECORD PRE-PROCEDURE PRE-PROCEDURE ORAL MEDICATIONS 25 MG BENADRYL PO KGULLO RN 1345 10 MG VALIUM PO KGULLO RN 1350 10 MG [facility]ODONE [facility] PROCEDURE IN ROOM 1430, START 1450, FINISH 1503, PHYSICIAN OUT OF ROOM 1510, OUT OF ROOM 1515, STEROID DEXAMETHASONE, O2 RA, ECG NORMAL SINUS, PATIENT SHIELDED YES, SAFETY STRAP YES, PREP CHLOROPREP, DRESSING TEGADERM LOC: 1. ALERT, ORIENTED RESP: 1. REGULAR, NO DYSPNEA COLOR: 3, 1. PINK SKIN: 1. WARM, DRY POSITION: 1. PRONE VITALS: 147/88 96 18 [facility] @1420 152/88 92 18 97% [facility] 1445 142/65 88 18 97% [facility] 1500 PN SI PRE PROCEDURE DIAGNOSIS SACROILIITIS, SACROILIAC JOINT DYSFUNCTION POST PROCEDURE DIAGNOSIS SACROILIITIS, SACROILIAC JOINT DYSFUNCTION PROCEDURE RIGHT SACROILIAC JOINT BLOCK SURGEON DR. KATJA RODRIGUEZ RIGHT OF WAY MAINTENANCE SUPERVISOR NONE ANESTHESIA LOCAL PRE PROCEDURE NOTE THE PATIENT WITH HISTORY OF CHRONIC LOW BACK PAIN. I EVALUATED THE PATIENT AND REVIEWED THE CHART. I WENT OVER THE RISKS, ALTERNATIVES, AND BENEFITS ASSOCIATED WITH THIS PROCEDURE. I DISCUSSED THAT THE USE OF STEROIDS MAY CONTRIBUTE TO IMMUNOSUPPRESSION OF THE PATIENT'S BODY AGAINST INFECTIONS SUCH THE GRADY VIRUS, COVID-19. THE PATIENT IS AWARE OF THE POTENTIAL COMPLICATIONS ASSOCIATED WITH AN INFECTION OF THIS VIRUS INCLUDING . THE PATIENT WOULD LIKE TO PROCEED AND GAVE CONSENT TO PERFORM THE PROCEDURE. THE PATIENT DENIES UNEXPLAINABLE WEIGHT LOSS, FEVER, CHILLS, OR NEW CHANGES IN URINARY OR BOWEL CONTROL. THE PATIENT IS COVID-19 NEGATIVE DESCRIPTION OF PROCEDURE THE PATIENT WAS BROUGHT TO THE PROCEDURE ROOM AND PLACED IN THE PRONE POSITION. THE LUMBOSACRAL AREA WAS CLEANED WITH CHLORAPREP SOLUTION AND DRAPED ASEPTICALLY. THE PROCEDURE WAS DONE UNDER STERILE CONDITIONS. I CHECKED LATERALITY AND THE LEVEL WHERE THE PROCEDURE WAS GOING TO BE PERFORMED WITH THE PATIENT AND THE SUPPORTING STAFF AT THE MOMENT OF THE TIME OUT IN THE PROCEDURE ROOM. UNDER FLUOROSCOPIC GUIDANCE, TARGET POINT WAS SELECTED AT THE LOWER BORDER OF THE RIGHT SACROILIAC JOINT. TARGET POINT WAS SELECTED AFTER MEDIAL ROTATION AND TILT OF THE MAGNIFIER OF THE C-ARM. LIDOCAINE WAS USED TO NUMB THE SKIN AND SUBCUTANEOUS TISSUE BELOW IT. A SPINAL NEEDLE, 22-GAUGE, WAS ADVANCED UNDER FLUOROSCOPIC GUIDANCE AND FOLLOWING PATIENT FEEDBACK UNTIL THE TARGET AREA WAS TOUCHED. THE POSITION OF THE NEEDLE WAS VERIFIED WITH AP AND LATERAL VIEWS. AFTER PROPER POSITION OF THE NEEDLE WAS ACHIEVED, ISOVUE M DYE 30%, 0.25 ML, WAS INJECTED SHOWING SPREAD OF THE DYE. THEN, A SOLUTION OF 10 MG OF DEXAMETHASONE WAS INJECTED IN THE RIGHT JOINT WITH 3 ML OF BUPIVACAINE 0.125%. THERE WAS NO EVIDENCE OF BLOOD, PARESTHESIA OR CEREBROSPINAL FLUID DURING THE PROCEDURE. THE PATIENT WAS SENT TO THE RECOVERY ROOM. THE PATIENT WAS MOVING THE EXTREMITIES AND DOING WELL. THERE WAS NO COMPLICATION DURING THE PROCEDURE. FLUOROSCOPY TIME WAS 59 SECONDS POST PROCEDURE NOTE THE PROCEDURE DONE WAS DISCUSSED WITH THE PATIENT. THE PATIENT WILL BE SEEN IN A FOLLOW UP IN THE NEXT FEW WEEKS. I AM LOOKING FOR LONG LASTING PAIN RELIEF FOR THE PATIENT WITH THIS INTERVENTION. INSTRUCTIONS WERE GIVEN, QUESTIONS WERE ANSWERED, AND THE PATIENT EXPRESSED UNDERSTANDING AND AGREES WITH THE PLAN. THE PATIENT IS AWARE TO STAY HOME FOR THE NEXT WEEK, IF POSSIBLE, DUE TO COVID-19. I, MALIK CLARK, DOCUMENTED THE ABOVE INFORMATION ACTING A SCRIBE FOR DR. RODRIGUEZ. I HAVE REVIEWED THE ABOVE DOCUMENT, WRITTEN BY MALIK CLARK, [employer], AND I VERIFY THAT IT IS ACCURATE PROCEDURE CODES 65537 INJECT SACROILIAC JOINT, MODIFIERS: RT DISPOSITION & COMMUNICATION FOLLOW UP F/UP WITH [employer]NAGED SERVICE SALES EXEC IN 3 WEEKS (REASON: POST RIGHT SIJ) ELECTRONICALLY SIGNED BY KATJA RODRIGUEZ MD, MD ON 04/07/2020 AT 04:45 PM EDT DISCLAIMER : THIS IS A VISIT SUMMARY EXTRACTED FROM THE [facility] CHART. IT IS NOT A COPY OF THE [place] PROGRESS NOTE. GIRMA
== END ==
LOC: M PAIN 13:15
PROVIDERS: ATTEND Anesthesiology
DX: M46.1 Sacroiliitis, not elsewhere classified (principal); M53.3 Sacrococcygeal disorders, not elsewhere classified
CPT/HCPCS: G0260; J1100; Q9967

== ENCOUNTER → 2020-04-16 | Outpatient (CLI) | payer OTHER ==
[~2020-04-16] MED LIST changes: -BUPIVACAINE HCL 0.25% 30ML VIAL As Ordered ONE; -ISOVUE-M 300 61% 15ML VIAL As Ordered ONE; -LIDOCAINE 1% SDV 30ML VIAL As Ordered ONE; -dexameTHASONE 10MG/1ML VIAL PRES.FREE (J1100 PER 1MG) As Ordered ONE; -diazePAM 5 MG TAB As Ordered ONE; -diphenhydrAMINE 25MG CAP As Ordered ONE; -oxyCODONE 5MG TAB As Ordered ONE
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
== END ==
LOC: M PAIN 14:30
PROVIDERS: ATTEND Anesthesiology
DX: M51.16 Intervertebral disc disorders with radiculopathy, lumbar region (principal); M51.17 Intervertebral disc disorders with radiculopathy, lumbosacral region; M96.1 Postlaminectomy syndrome, not elsewhere classified

== ENCOUNTER → 2020-05-10 | Outpatient (CLI) | payer OTHER | LOC: M LABSMTC 12:53 | PROVIDERS: ATTEND Anesthesiology | DX: Z11.59 Encounter for screening for other viral diseases (principal) | CPT/HCPCS: C9803; U0003 ==

== ENCOUNTER → 2020-05-13 | Outpatient (CLI) | payer OTHER ==
[~2020-05-13] MED LIST changes: +ISOVUE-M 300 61% 15ML VIAL As Ordered ONE; +LIDOCAINE 1% SDV 30ML VIAL As Ordered ONE; +diazePAM 5 MG TAB As Ordered ONE; +diphenhydrAMINE 25MG CAP As Ordered ONE; +methylPREDNISolone SUSP 40MG/ML 1ML VIAL (DEPO MEDROL) As Ordered ONE; +oxyCODONE 5MG TAB As Ordered ONE
--- NOTE | 2020-05-14 03:52 | REP ---
C-ARM VIEWS SACRUM AND COCCYX: CLINICAL HISTORY: Pain. Four C-arm views sacrum and coccyx performed during injection performed by Dr. Hobson. [place] are seen along the sacrum and coccyx. 28.2 seconds fluoroscopy time utilized. Electronically Signed by Isai Oliveira MD 05/16/2020 10:48 P
--- NOTE | 2020-05-15 01:02 | ECWPNPC ---
PATIENT NAME: JAMES GRESHAM : 1960 GENDER: FEMALE VISIT DATE: 05/13/2020 DISCHARGE DATE: 05/13/20 1539 VISIT LOCKED DATE TIME: PHYSICIAN: KATJA RODRIGUEZ MD RESOURCE: KATJA RODRIGUEZ MD REASON FOR APPOINTMENT 1. CAUDAL EPIDURAL PAT DONE HISTORY OF PRESENT ILLNESS GENERAL: -. FALL RISK SCREENING: SCREENING :NO FALLS REPORTED IN THE LAST YEAR PAIN SCREENING: PATIENT HAS A COMPLAINT OF ACUTE OR CHRONIC PAIN :YES LOCATION OF PAIN: RIGHT BUTTOCKS, RIGHT GROIN, DOWN RIGHT LEG BELOW KNEE, RIGHT FOOT/ DROP FOOT INTENSITY OF PAIN (SCALE OF 1 TO 10):9 WHAT DOES YOUR PAIN FEEL LIKE:ACHING, SHARP DURATION:CONSTANT PAIN IS INCREASED BY:ACTIVITIES SITTING AND ANY MOVEMENT PAIN IS DECREASED BY: STAYING OFF RIGHT SIDE, HEAT NURSING NOTE: -. PAIN CENTER INTAKE QUESTIONS: DO YOU HAVE A HISTORY OF MRSA? :NO DO YOU TAKE A BLOOD THINNERS? :NO DO YOU HAVE ANY BLEEDING DISORDERS? :NO ANY NEW NUMBNESS OR WEAKNESS IN YOUR LEGS OR ARMS? :NO ANY PACEMAKER,DEFIBRILLATOR, OR DORSAL COLUMN STIMULATOR? :NO DO YOU HAVE ANY RASHES OR OPEN SORES? :NO ARE YOU ALLERGIC TO IV DYE? :NO ARE YOU DIABETIC? :NO ANY NEW PROBLEMS WITH YOUR MEDICATIONS? :NO HAVE YOU RECEIVED A VACCINE IN THE PAST 30 DAYS? :NO DO YOU PLAN TO RECEIVE A VACCINE IN THE NEXT 21 DAYS? :NO DO YOU TAKE ANY IMMUNOSUPPRESSIVE MEDICATIONS? :NO ANY HISTORY OF SEIZURES? :NO ANY HISTORY OF CARDIAC ISSUES OR EVENTS? :NO DO YOU HAVE SLEEP APNEA? :NO ANY RECENT HEAD INJURY? :NO DO YOU HAVE ANY NEW INFECTIONS? :NO IS THERE A CHANCE YOU COULD BE ? :NO ARE YOU BREAST FEEDING? :NO WHEN DID YOU LAST EAT? : 05/13 06 WHEN DID YOU LAST DRINK? : -05/13 10A WHAT DID YOU LAST DRINK? : -WATER NAME OF PERSON DRIVING YOU HOME? : -FRIEND - MANPREET DO YOU HAVE ANY OTHER QUESTIONS OR CONCERNS? : NONE CURRENT MEDICATIONS TAKING FLUTICASONE PROPIONATE 50 MCG/ACT SUSPENSION 1 SPRAY IN EACH NOSTRIL NASALLY TWICE A DAY, NOTES: NOT LATELY TAKING ACYCLOVIR 800 MG TABLET 1 TABLET NEEDED ORALLY TWICE A DAY, NOTES: NOT LATELY TAKING TRAZODONE HCL 50 MG TABLET 0.5 - 1 TABLET AT BEDTIME NEEDED ORALLY ONCE A DAY, NOTES: NOT LATELY TAKING MELOXICAM 7.5 MG TABLET 1 TABLET ORALLY ONCE A DAY, NOTES: 05/13 6AM TAKING OMEPRAZOLE 20 MG CAPSULE DELAYED RELEASE 1 CAPSULE 30 MINUTES BEFORE MORNING MEAL ORALLY ONCE A DAY, NOTES: 05/13 6AM TAKING DIAZEPAM 5 MG TABLET 1 TABLET NEEDED ORALLY BID; MDD _#2, NOTES: 3 WEEKS TAKING VENLAFAXINE HCL ER 150 CAPSULE 1 CAPSULE WITH FOOD ORALLY ONCE A DAY, NOTES: 05/13 6A TAKING VENLAFAXINE HCL ER 75 MG CAPSULE EXTENDED RELEASE 24 HOUR 1 CAPSULE WITH FOOD ORALLY ONCE A DAY, NOTES: 05/12 7P TAKING PROGESTERONE MICRONIZED 100 MG CAPSULE 1 CAPSULE AT BEDTIME ORALLY ONCE A DAY, NOTES: NONE LATELY TAKING LYRICA 100 MG CAPSULE 1 CAPSULE ORALLY FOR PAIN TWICE DAILY, NOTES: 05/11 TAKING TIZANIDINE HCL 4 MG TABLET 1 TABLET NEEDED ORALLY FOR SPASMS AND PAIN BEFORE BEDTIME MAY REPEAT IN 5 HRS MDD2, NOTES: 05/12 7P TAKING OXYCODONE-ACETAMINOPHEN 10-325 MG TABLET 1 TABLET NEEDED ORALLY FOR PAIN EVERY 8 HRS MDD3, NOTES: 05/12 7P NOT-TAKING IBUPROFEN 800 MG TABLET 1 TABLET ORALLY TWICE TIMES A DAY, NOTES: NEEDS REFILL NOT-TAKING ESTRACE 0.5 MG TABLET 1 TABLET ORALLY DAILY NOT-TAKING TIZANIDINE HCL 4 MG TABLET 1 TABLET NEEDED ORALLY BEFORE BEDTIME MEDICATION LIST REVIEWED AND RECONCILED WITH THE PATIENT PAST MEDICAL HISTORY ANXIETY DEPRESSION CHRONIC PAIN IN NECK AND BACK ASCVD 10 YEAR RISK 3.1% IN 11/2019 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 SURGICAL HISTORY RIGHT SHOULDER FOR ROTATOR CUFF LEFT SHOULDER FOR BONE SPURS SURGERIES TO FEET FOR BONE SPURS ON TOES LAPAROSCOPY UTERINE BIOPSY-DODARD BONE SPUR LEFT SECOND TOE 01/20 BACK SURGERY 11/18/18 CYSTOSCOPY 02/2019 COLONOSCOPY - ADENOMATOUS POLYP/TUBULAR ADENOMA REMOVED, DR. HOLDER, REPEAT IN 5 YEARS 05/2019 BACK FUSION 11/2019 FAMILY HISTORY FATHER: , LUNG CANCER MOTHER: , LUNG CANCER; DEPRESSION SIBLINGS: ALIVE, SISTER HAD A PITUITARY TUMOR AND A STROKE HAS PASSED. 1 BROTHER(S) , 2 SISTER(S) . DENIES FAMILY HISTORY OF BREAST, COLON, OR OVARIAN CANCER. \\\\\\\\\\\\\\\\NNO FAMILY HX OF MELANOMA OR PANCREATIC CANCER. DENIES FAMILY HISTORY OF UROLOGICAL DX. SOCIAL HISTORY GENERAL: TOBACCO USE ARE YOU A:FORMER SMOKER SMOKED ABOUT 1/2 PPD STARTED SMOKING 16YRS OLD ONLY SMOKED WHILE DRINKING AND QUIT A COUPLE YEARS AGO HOW LONG HAS IT BEEN SINCE YOU LAST SMOKED?1-5 YEARS LATEX QUESTIONNAIRE LATEX ALLERGY : HAVE YOU EVER DEVELOPED ANY TYPE OF REACTION AFTER HANDLING LATEX PRODUCTS SUCH RUBBER GLOVES, CONDOMS, DIAPHRAGMS, BALLOONS, SOCKS, OR UNDERWEAR?NO LATEX ALLERGY : HAVE YOU EVER DEVELOPED ANY TYPE OF REACTION DURING OR AFTER DENTAL APPOINTMENT, VAGINAL/RECTAL EXAMINATION, SURGICAL PROCEDURE, OR ANY OTHER EXPOSURE?NO LATEX RISK : HAVE YOU EVER HAD ANY DIFFICULTY BREATHING OR HIVES AFTER EATING OR HANDLING ANY FRUITS, OR VEGETABLES; SUCH KIWI, BANANAS, STONE FRUITS, OR CHESTNUTSNO LATEX RISK : DO YOU HAVE A PREVIOUS PERSONAL HISTORY OF MORE THAN NINE SURGERIES, SPINA BIFIDA, OR REPEATED CATHERIZATIONS? NO LATEX RISK : ARE YOU FREQUENTLY EXPOSED TO LATEX PRODUCTS IN YOUR OCCUPATION?YES DATE ASKED : 05/13/2020 ALCOHOL SCREENING DID YOU HAVE A DRINK CONTAINING ALCOHOL IN THE PAST YEAR?YES HOW OFTEN DID YOU HAVE SIX OR MORE DRINKS ON ONE OCCASION IN THE PAST YEAR?NEVER (0 POINTS) HOW MANY DRINKS DID YOU HAVE ON A TYPICAL DAY WHEN YOU WERE DRINKING IN THE PAST YEAR?1 OR 2 (0 POINTS) HOW OFTEN DID YOU HAVE A DRINK CONTAINING ALCOHOL IN THE PAST YEAR?TWO TO FOUR TIMES A MONTH (2 POINTS) POINTS2 INTERPRETATIONNEGATIVE RECREATIONAL DRUG USE DRUG USE?NO MARIJUANA ONCE A MONTH CAFFEINE CAFFEINE USE?YES ICED TEA = 2 LARGE CUPS PER DAY SEXUAL HX HAD SEX IN THE LAST 12 MONTHS (VAGINAL, ORAL, OR ANAL)?NO LMP:POST MENOPAUSE HAVE YOU EVER HAD AN STD?NO HIV / HEP-C SCREENING HIV TEST OFFERED TO PATIENT:YES DATE OFFERED:10/22/2019 TEST ACCEPTED:NO HEP-C TEST OFFERED TO PATIENT:YES DATE OFFERED:02/07/2017 REASON:PATIENT DECLINED TEST ACCEPTED:NO REASON:PATIENT DECLINED BROCHURE PROVIDED TO PATIENTNO QUAKER [id number] JUDAISM NO RESTORATIONIST BELIEFS THAT WOULD IMPACT HEALTH CARE. LANGUAGE LANGUAGES SPOKEN:TURKMEN EDUCATION LEVEL OF EDUCATION:FINISHED COLLEGE LEARNING BARRIERS / SPECIAL NEEDS CHANGE FROM LAST VISIT?NO BARRIERS TO LEARNING?NO HEARING IMPAIRED?NO VISION IMPAIRED?YES COGNITIVELY IMPAIRED?NO :CORRECTIVE LENSES READINESS TO LEARN?YES LEARNING PREFERENCES?NO LEARNING CAPABILITIES PRESENT?YES EMOTIONAL BARRIERS?NO SPECIAL DEVICES?NO TRAFFIC CONTROL SIGNALER NEEDED?NO DOMESTIC VIOLENCE DO YOU FEEL SAFE IN YOUR ENVIRONMENT?YES OCCUPATION: UNEMPLOYED. DIET: REGULAR. EXERCISE: NO REGULAR EXERCISE. MARITAL STATUS: . OTHERS AT HOME: FRIEND STAYING WITH JAMES. PAIN CLINIC PFS, CLERGY, PUBLIC HEALTH REFERRALS PFS REFERRAL NEEDED?NO CLERGY REFERRAL NEEDED?NO PUBLIC HEALTH REFERRAL NEEDED?NO WAS THE PROVIDER NOTIFIED OF ANY PERTINENT INFO?YES HAS THE PATIENT BEEN EDUCATED REGARDING HIS/HER PLAN OF CARE?YES HAS THE PATIENT BEEN EDUCATED REGARDING PAIN, THE RISK FOR PAIN, THE IMPORTANCE OF EFFECTIVE PAIN MANAGEMENT, AND THE PAIN ASSESSMENT PROCESS?YES ADVANCE DIRECTIVE ADVANCE DIRECTIVE DISCUSSED WITH PATIENT:YES PT STATES THAT SHE DOES NOT HAVE HCP AT THIS TIME HOSPITALIZATION/MAJOR DIAGNOSTIC PROCEDURE FOR SURGERIES VITAL SIGNS WT 144.2 LBS, HT 62 IN, BMI 26.37 INDEX, BP 165/67 MM HG, HR 70 /MIN, RR 18 /MIN, TEMP 96.4 F, OXYGEN SAT % 100%, SAFE IN ENV? (Y/N) Y, NA INITIALS SC 13:26, REVIEWED BY: MARIANA. EXAMINATION GENERAL EXAMINATION: THE PATIENT IS ALERT, ORIENTED TIMES THREE AND COOPERATIVE. HEART SHOWS REGULAR RHYTHM, NO MURMURS AND NO GALLOPS. LUNGS ARE CLEAR TO AUSCULTATION. ASSESSMENTS LUMBAR POST-LAMINECTOMY SYNDROME - M96.1 (PRIMARY) TREATMENT LUMBAR POST-LAMINECTOMY SYNDROME CONTINUE OXYCODONE-ACETAMINOPHEN TABLET, 10-325 MG, 1 TABLET NEEDED, ORALLY FOR PAIN, EVERY 8 HRS MDD3, 15 DAYS, 40, REFILLS 0, NOTES: 05/12 7 MEDICATION: BENADRYL TAB 25MG ORALLY (DIPHENHYDRAMINE)ANA PAULA MALDONADO 05/13/2020 2:10:25 PM > VERIFIED BEN BERNABE RN 05/13/2020 2:19:38 PM > LOT#[id number], EXP 11/2022, ADMINISTERED SALINE BEN COLE RN 05/13/2020 2:50:39 PM > VERIFIED, RIGHT AC#22, 1ST ATTEMPT, PT TOLERATED WELL. MEDICATION: VALIUM TAB 10MG ORALLY (DIAZEPAM)ANA PAULA MALDONADO 05/13/2020 2:10:39 PM > VERIFIED BEN BERNABE RN 05/13/2020 2:21:43 PM > LOT#[id number], EXP 12/26, ADMINISTERED MEDICATION: OXYCODONE HCL TAB 10MG ORALLYANA PAULA MALDONADO 05/13/2020 2:10:52 PM > VERIFIED BEN BERNABE RN 05/13/2020 2:20:45 PM > LOT#[id number], EXP 12/2021, ADMINISTERED CLINICAL NOTES: ISTOP NUMBER [id number] CHECKED. PROCEDURES PAIN NURSING RECORD PRE-PROCEDURE IV SITE RIGHT AC, #22, IV STARTED # 22 1ST ATTEMPT, IV STARTED BY: Kristyn BERNABE RN, IV ATTEMPTS 1, PRE-PROCEDURE ORAL MEDICATIONS SEE MEDS PROCEDURE IN ROOM 1440, PHYSICIAN IN ROOM 1455, START 1459, FINISH 1513, PHYSICIAN OUT OF ROOM 1516, OUT OF ROOM 1518, STEROID DEPOMEDROL 10MG, O2 RA, ECG NORMAL SINUS, PATIENT SHIELDED YES, SAFETY STRAP YES, PREP BETADINE, IV INFUSED N/A, DRESSING TEGADERM MD RODRIGUEZ LOC: BEN BERNABE RN 05/13/2020 3:00:55 PM > , 1. ALERT, ORIENTED RESP: BEN BERNABE RN 05/13/2020 3:00:59 PM > , 1. REGULAR, NO DYSPNEA COLOR: BEN BERNABE RN 05/13/2020 3:01:04 PM > , 1. PINK SKIN: BEN BERNABE RN 05/13/2020 3:01:08 PM > , 1. WARM, DRY POSITION: BEN BERNABE RN 05/13/2020 3:01:12 PM > , 1. PRONE VITALS: BEN BERNABE RN 05/13/2020 2:50:18 PM > 109/51, 84, 18, 100% , BEN BERNABE RN 05/13/2020 3:02:02 PM > 124/57, 88, 18, 99% , BEN BERNABE RN 05/13/2020 3:10:56 PM > 106/51, 83, 18, 98% , BEN BERNABE RN 05/13/2020 3:32:15 PM > 173/78, 81, 18, 98% (DISCHARGE) DISCHARGE: POST PAIN 01/12, DRESSING SITE DRY AND INTACT, IV DISCONTINUED, SITE CLEAR, CATHETER INTACT, GAIT STEADY PT AMBULATING POST PROCEDURE WITHOUT DIFFICULTY, PT TOLERATED PROCEDURE WELL. DS, TEACHING COMPLETED, PATIENT ACKNOWLEDGES UNDERSTANDING YES, PATIENT DISCHARGED AT 1535 PN CAUDAL EPIDURALS PRE PROCEDURE DIAGNOSIS LUMBAR POST LAMINECTOMY PAIN SYNDROME POST PROCEDURE DIAGNOSIS LUMBAR POST LAMINECTOMY PAIN SYNDROME PROCEDURE CAUDAL EPIDURAL STEROID INJECTION SURGEON DR. KATJA RODRIGUEZ REPRODUCER NONE ANESTHESIA LOCAL PRE PROCEDURE NOTE THE PATIENT HAS HISTORY OF CHRONIC LOW BACK PAIN. I EVALUATED THE PATIENT AND REVIEWED THE CHART. I WENT OVER THE RISKS, ALTERNATIVES, AND BENEFITS ASSOCIATED WITH THIS PROCEDURE. I DISCUSSED THAT THE USE OF STEROIDS MAY CONTRIBUTE TO IMMUNOSUPPRESSION OF THE PATIENT'S BODY AGAINST INFECTIONS SUCH COVID-19. THE PATIENT IS AWARE OF THE POTENTIAL COMPLICATIONS ASSOCIATED WITH THIS VIRUS, INCLUDING, BUT NOT LIMITED TO, . I DISCUSSED THE USE OF DEXAMETHASONE INSTEAD OF DEPO-MEDROL; HOWEVER, THE PATIENT WOULD LIKE TO MOVE FORWARD WITH DEPO-MEDROL. THE PATIENT WOULD LIKE TO PROCEED AND GIVE CONSENT TO PERFORMED THE PROCEDURE. THE PATIENT DENIES UNEXPLAINABLE WEIGHT LOSS, FEVER, CHILLS, OR NEW CHANGES IN URINARY OR BOWEL CONTROL DESCRIPTION OF PROCEDURE THE PATIENT WAS BROUGHT TO THE PROCEDURE ROOM AND PLACED IN THE PRONE POSITION. THE LUMBOSACRAL AREA WAS CLEANED WITH BETADINE SOLUTION AND DRAPED ASEPTICALLY. THE PROCEDURE WAS DONE UNDER STERILE CONDITIONS. I CHECKED LATERALITY AND THE LEVEL WHERE THE PROCEDURE WAS GOING TO BE PERFORMED WITH THE PATIENT AND THE SUPPORTING STAFF AT THE MOMENT OF THE TIME OUT IN THE PROCEDURE ROOM. UNDER FLUOROSCOPIC GUIDANCE, THE TARGET POINT WAS SELECTED AT THE EPIDURAL SPACE BELOW THE SACROCOCCYGEAL LIGAMENT. LIDOCAINE 0.5% WAS USE TO NUMB THE SKIN AND THE SUBCUTANEOUS TISSUE BELOW IT. AN EPIDURAL TUOHY NEEDLE, 17-GAUGE, WAS ADVANCED UNDER FLUOROSCOPIC GUIDANCE AND FOLLOWING PATIENT FEEDBACK UNTIL THE EPIDURAL SPACE WAS REACHED 4 CM DEEP INTO THE SKIN BY THE LOSS OF RESISTANCE TECHNIQUE. ISOVUE M DYE 30%, 0.25 ML, WAS INJECTED SHOWING ADEQUATE SPREAD OF THE DYE. THEN, A SOLUTION OF 6 ML OF NORMAL SALINE WITH DEPO-MEDROL 80 MG WAS INJECTED SLOWLY FOLLOWING THE PATIENT FEEDBACK. THERE WAS NO EVIDENCE OF BLOOD, PARESTHESIA OR CEREBROSPINAL FLUID DURING THE PROCEDURE. THE PATIENT WAS SENT TO THE RECOVERY ROOM. THE PATIENT WAS MOVING THE EXTREMITIES AND DOING WELL. THERE WAS NO COMPLICATION DURING THE PROCEDURE. EBL LESS THAN 5 ML. FLUOROSCOPY TIME WAS 29 SECONDS POST PROCEDURE NOTE DEPENDING ON THE RESULTS OF THIS INJECTION, CONSIDER DOING ANOTHER CAUDAL OR TRANSFORAMINAL EPIDURAL STEROID INJECTIONS. THE PATIENT WILL BE SEEN IN A FOLLOW UP IN THE NEXT FEW WEEKS. I AM LOOKING FOR LONG LASTING RELIEF FOR THE PATIENT WITH THIS INTERVENTION. INSTRUCTIONS WERE GIVEN, QUESTIONS WERE ANSWERED, AND THE PATIENT EXPRESSED UNDERSTANDING AND AGREES WITH THE PLAN. THE PATIENT IS AWARE TO STAY HOME FOR THE NEXT WEEK, IF POSSIBLE, DUE TO COVID-19. I, MALIK CLARK, DOCUMENTED THE ABOVE INFORMATION ACTING A SCRIBE FOR DR. RODRIGUEZ. I HAVE REVIEWED THE ABOVE DOCUMENT, WRITTEN BY MALIK CLARK, LITHOGRAPH DESIGNER, AND I VERIFY THAT IT IS ACCURATE DIAGNOSTIC IMAGING [facility] FLUORO GUIDE SPINE INJECTION (PAIN)[id number] PROCEDURE CODES 01946 LUMBAR/SACRAL W/ IMAGING DISPOSITION & COMMUNICATION FOLLOW UP F/UP WITH DR. Fairbanks (REASON: POST CAUDAL- F/UP WITH DR. Fowler IN 3 WEEKS) ELECTRONICALLY SIGNED BY KATJA RODRIGUEZ MD, MD ON 05/14/2020 AT 12:29 PM EDT DISCLAIMER : THIS IS A VISIT SUMMARY EXTRACTED FROM THE [facility] CHART. IT IS NOT A COPY OF THE [facility] PROGRESS NOTE. MTDTomas
== END ==
LOC: M PAIN 12:45
PROVIDERS: ATTEND Anesthesiology
DX: M96.1 Postlaminectomy syndrome, not elsewhere classified (principal)
CPT/HCPCS: 62323; J1030; Q9967

== ENCOUNTER → 2020-06-01 | Outpatient (POV) | payer OTHER ==
[~2020-06-01] MED LIST changes: -ISOVUE-M 300 61% 15ML VIAL As Ordered ONE; -LIDOCAINE 1% SDV 30ML VIAL As Ordered ONE; -diazePAM 5 MG TAB As Ordered ONE; -diphenhydrAMINE 25MG CAP As Ordered ONE; -methylPREDNISolone SUSP 40MG/ML 1ML VIAL (DEPO MEDROL) As Ordered ONE; -oxyCODONE 5MG TAB As Ordered ONE
== END ==
LOC: M PAIN 13:15
PROVIDERS: ATTEND Anesthesiology
DX: M96.1 Postlaminectomy syndrome, not elsewhere classified (principal)

== ENCOUNTER → 2020-06-29 | Outpatient (CLI) | payer OTHER ==
--- NOTE | 2020-08-23 15:14 | REP ---
INDICATION: F17.211 CIGARETTE NICOTINE DEP COMPARISON: 05/13/2019 TECHNIQUE: Axial noncontrast images from the thoracic inlet to the upper abdomen using low-dose lung screening technique (LDCT). FINDINGS: Mild/moderate emphysematous changes including mild bronchiectasis and with small scattered bullae primarily involving the lower lobes again noted. No suspicious consolidation, nodule or mass lesion identified. No effusion. No pneumothorax. Limited evaluation of the mediastinum demonstrates mild stable atherosclerotic changes. Old healed bilateral rib fractures again noted. IMPRESSION: Lung rads category 2. Stable benign findings. Management recommendations include annual low-dose surveillance. <Electronically signed by Deep Patel > 08/23/20 [id number]
== END ==
LOC: M RAD 15:09
PROVIDERS: ATTEND Family Medicine
DX: F17.211 Nicotine dependence, cigarettes, in remission (principal); Z12.2 Encounter for screening for malignant neoplasm of respiratory organs

== ENCOUNTER → 2020-07-08 | Outpatient (CLI) | payer OTHER | LOC: M LABSMTC 13:30 | PROVIDERS: ATTEND Anesthesiology | DX: Z20.828 Contact with and (suspected) exposure to other viral communicable diseases (principal) | CPT/HCPCS: C9803; U0003 ==

== ENCOUNTER → 2020-07-13 | Outpatient (CLI) | payer OTHER ==
[~2020-07-13] MED LIST changes: +ISOVUE-M 300 61% 15ML VIAL As Ordered ONE; +LIDOCAINE 1% SDV 30ML VIAL As Ordered ONE; +diazePAM 5 MG TAB As Ordered ONE; +diphenhydrAMINE 25MG CAP As Ordered ONE; +methylPREDNISolone SUSP 40MG/ML 1ML VIAL (DEPO MEDROL) As Ordered ONE; +oxyCODONE 5MG TAB As Ordered ONE
--- NOTE | 2020-08-02 11:22 | REP ---
C-ARM VIEWS: HISTORY: Pain. FINDINGS: Multiple C-arm views of the sacrococcygeal region performed during an injection by Dr. Hobson. A catheter is seen overlying the sacrum. Note is made of rods and screws fusing the lower lumbar spine. 2 minutes 50 seconds of fluoroscopy time utilized. MTDD
== END ==
LOC: M PAIN 10:32
PROVIDERS: ATTEND Anesthesiology
DX: M51.17 Intervertebral disc disorders with radiculopathy, lumbosacral region (principal)
CPT/HCPCS: 62323; 77003; G0463; J1030; Q9967

== ENCOUNTER → 2020-07-16 | Outpatient (CLI) | payer OTHER ==
[~2020-07-16] MED LIST changes: -ISOVUE-M 300 61% 15ML VIAL As Ordered ONE; -LIDOCAINE 1% SDV 30ML VIAL As Ordered ONE; -diazePAM 5 MG TAB As Ordered ONE; -diphenhydrAMINE 25MG CAP As Ordered ONE; -methylPREDNISolone SUSP 40MG/ML 1ML VIAL (DEPO MEDROL) As Ordered ONE; -oxyCODONE 5MG TAB As Ordered ONE
== END ==
LOC: M PAIN 13:57
PROVIDERS: ATTEND Anesthesiology
DX: M51.16 Intervertebral disc disorders with radiculopathy, lumbar region (principal); M96.1 Postlaminectomy syndrome, not elsewhere classified

== ENCOUNTER → 2020-07-20 | Outpatient (CLI) | payer OTHER ==
[2020-07-20 11:22] LABS: C REACTIVE PROTEIN QUANTITATIV < 0.30 MG/DL (0.00-0.30); CHOLESTEROL LEVEL 201 MG/DL (<200); CHOLESTEROL RISK RATIO 3.526 (<5); HDL CHOLESTEROL 57 MG/DL (>40); LDL CHOLESTEROL 102 MG/DL (<100); NON-HDL-C 144 MG/DL; THYROXINE (T4) 5.7 UG/DL (4.5-12.0); TOTAL PROTEIN 6.4 GM/DL (6.4-8.2); TRIGLYCERIDES LEVEL 211 MG/DL (<150)
[2020-07-20 11:30] LABS: HEMOGLOBIN A1c 5.5 %
[2020-07-20 13:25] LABS: TOTAL 25(OH) VITAMIN D 33.2 NG/ML (30.0-100.0)
[2020-07-20 13:26] LABS: VITAMIN B12 LEVEL 357 PG/ML (247-911)
[2020-07-23 10:54] LABS: ALBUMIN % 56.1 % (55.8-66.1); ALPHA-1-GLOBULIN % 4.5 % (2.9-4.9)
[2020-07-23 10:55] LABS: ALBUMIN 3.59 GM/DL (3.29-5.55); ALPHA-1-GLOBULINS 0.29 GM/DL (0.17-0.41); ALPHA-2-GLOBULINS 0.71 GM/DL (0.42-0.99); ALPHA-2-GLOBULINS % 11.1 % (7.1-11.8); BETA-1-GLOBULINS 0.45 GM/DL (0.28-0.60); BETA-1-GLOBULINS % 7.1 % (4.7-7.2); BETA-2-GLOBULINS 0.33 GM/DL (0.19-0.55); BETA-2-GLOBULINS % 5.2 % (3.2-6.5); GAMMA GLOBULINS 1.02 GM/DL (0.65-1.58)
[2020-07-24 20:07] LABS: ANTINUCLEAR ANTIBODIES DIRECT Negative (Negative); Methylmalonic Acid 191 nmol/L (0-378)
== END ==
LOC: M LAB 08:13
PROVIDERS: ATTEND Specialist
DX: D47.2 Monoclonal gammopathy (principal); E03.9 Hypothyroidism, unspecified; E55.9 Vitamin D deficiency, unspecified; Z79.899 Other long term (current) drug therapy

== ENCOUNTER → 2020-07-21 | Outpatient (CLI) | payer OTHER ==
--- NOTE | 2020-07-21 09:31 | REPVR ---
PROCEDURE INFORMATION: Exam: MR Cervical Spine Without Contrast Exam date and time: 07/21/2020 8:59 AM Age: 59 years old Clinical indication: Radicular pain (radiculopathy); Cervical region; Additional info: Radiculopathy, RT foot drop TECHNIQUE: Imaging protocol: Multiplanar magnetic resonance images of the cervical spine without contrast. COMPARISON: [facility] FLUORO GUIDE SPINE INJECTION 07/13/2020 11:57 AM FINDINGS: Vertebrae: Unremarkable. Spinal cord: The spinal cord signal is normal, however, motion artifact does moderately limit the sensitivity of this examination, particularly on the STIR images which limits sensitivity to myelopathic signal. The C5-C6 level shows mild prominence of the disc contour centrally with indentation of the cord contour but adequate fluid surrounding the cord on image 12. There is moderate right and mild facet arthropathy and foraminal stenosis. C2-C3: No significant disc disease. No significant spinal stenosis. C3-C4: The C3-C4 level demonstrates a moderate diffuse posterior disc herniation. There is moderate flattening of the anterior cord contour. There is limited fluid surrounding the cord on axial image 18. There is mild right foraminal stenosis reflecting uncovertebral spur formation. C4-C5: The C4-C5 level demonstrates a small diffuse posterior disc herniation. There is flattening of the anterior cord with limited fluid surrounding the cord on image 15. There is moderate facet arthropathy with mild right and moderate left foraminal stenosis. C5-C6: No significant disc disease. No significant spinal stenosis. C6-C7: The C6-C7 level demonstrates a moderate diffuse posterior disc herniation. There is flattening of the anterior cord with limited fluid surrounding the cord on image 8. There is moderate bilateral facet arthropathy and foraminal stenosis. C7-T1: No significant disc disease. No significant spinal stenosis. Brain: The brainstem is normal. The cerebellum is normal. Vertebral arteries: Expected flow voids in the vertebral arteries. Soft tissues: Unremarkable. IMPRESSION: 1. The spinal cord signal is normal, however, motion artifact does moderately limit the sensitivity of this examination, particularly on the STIR images which limits sensitivity to myelopathic signal. 2. The C3-C4 level demonstrates a moderate diffuse posterior disc herniation. There is moderate flattening of the anterior cord contour. There is limited fluid surrounding the cord on axial image 18. There is mild right foraminal stenosis reflecting uncovertebral spur formation. 3. The C4-C5 level demonstrates a small diffuse posterior disc herniation. There is flattening of the anterior cord with limited fluid surrounding the cord on image 15. There is moderate facet arthropathy with mild right and moderate left foraminal stenosis. 4. The C5-C6 level shows mild prominence of the disc contour centrally with indentation of the cord contour but adequate fluid surrounding the cord on image 12. There is moderate right and mild facet arthropathy and foraminal stenosis. 5. The C6-C7 level demonstrates a moderate diffuse posterior disc herniation. There is flattening of the anterior cord with limited fluid surrounding the cord on image 8. There is moderate bilateral facet arthropathy and foraminal stenosis. Electronically signed by: Brody Santiago On 07/21/2020 09:30:59 AM
== END ==
LOC: M RAD 08:09
PROVIDERS: ATTEND Specialist
DX: M50.11 Cervical disc disorder with radiculopathy, high cervical region (principal); M21.371 Foot drop, right foot; M50.121 Cervical disc disorder at C4-C5 level with radiculopathy; M50.122 Cervical disc disorder at C5-C6 level with radiculopathy; M50.123 Cervical disc disorder at C6-C7 level with radiculopathy

== ENCOUNTER → 2020-07-23 | Outpatient (CLI) | payer OTHER | LOC: M PAIN 09:55 | PROVIDERS: ATTEND Anesthesiology | DX: M96.1 Postlaminectomy syndrome, not elsewhere classified (principal) ==

== ENCOUNTER → 2020-08-18 | Outpatient (CLI) | payer OTHER | LOC: M LABSMTC 13:28 | PROVIDERS: ATTEND Anesthesiology | DX: Z11.59 Encounter for screening for other viral diseases (principal) | CPT/HCPCS: C9803; U0003 ==

== ENCOUNTER → 2020-08-19 | Outpatient (CLI) | payer OTHER ==
--- NOTE | 2020-09-02 03:11 | ECWPNPC ---
PATIENT NAME: JAMES GRESHAM : 1960 GENDER: FEMALE VISIT DATE: 08/19/2020 DISCHARGE DATE: 08/19/201743 VISIT LOCKED DATE TIME: PHYSICIAN: KATJA RODRIGUEZ MD PHYSICIAN PAGER NO: ACTIVE RESOURCE: KATJA RODRIGUEZ MD REASON FOR APPOINTMENT 1. PRE-SEDATE- RUNNING 10 MNS LATE HISTORY OF PRESENT ILLNESS GENERAL: 59-YEAR-OLD FEMALE PATIENT WITH A HISTORY OF CHRONIC LOW BACK AND BILATERAL BUT MAINLY RIGHT LEG PAIN. THE PATIENT DESCRIBES THE PAIN ACHING, SEVERE AND INCAPACITATING WITH A PAIN SCORE RANGING FROM 6-9/10 DEPENDING ON PHYSICAL ACTIVITY. THE PATIENT IS EXPERIENCING CHANGES WITH THE PAIN AND LATELY HAS BEEN EXPERIENCING SEVERE PAIN AND NUMBERLESS IN THE LEFT LEG. THE PATIENT HAS SEEN DR. MOLINA AND HE EXAMINED THE CASE AND REVIEWED THE MRI FILMS AND HE THINKS THAT HE CAN HELP JAMES WITH SOME SURGICAL INTERVENTION AND CAN WORK WITH A SCREW. HE SUGGESTS HOLDING THE DCS TRIAL FOR NOW. SHE WAS PRESCRIBE MORPHINE BUT IS NOT WORKING FOR HER DUE TO SIDE EFFECTS .THE PATIENT IS TAKING OXYCODONE AND LYRICA AND TIZANIDINE. THIS IS HELPING HER GET BY BUT SHE NEEDS OTHER ALTERNATIVES. THE PATIENT STATES THAT WHEN SHE SITS AND LAYS DOWN IT CAUSES MORE PAIN. THE PATIENT IS HERE TODAY FOR A PRESEDATE VISIT FOR A TRANSFORAMINAL EPIDURAL. PATIENT DENIES UNEXPLAINABLE WEIGHT LOSS, FEVER, CHILLS, NEW CHANGES ON HER URINARY OR BOWEL CONTROL. FALL RISK SCREENING: SCREENING :TWO OR MORE FALLS WITHOUT INJURY IN THE PAST YEAR NO INJURY, NO REPORT TO ED PAIN SCREENING: PATIENT HAS A COMPLAINT OF ACUTE OR CHRONIC PAIN :YES LOCATION OF PAIN:LOW BACK, RIGHT HIP, LEG(S) INTENSITY OF PAIN (SCALE OF 1 TO 10):6 WHAT DOES YOUR PAIN FEEL LIKE:ACHING, CONTINOUS, SHARP, STABBING, TENDER, SHOOTING, OTHER DURATION:STEADY, ALL DAY PAIN IS INCREASED BY:ACTIVITIES, OTHERS UNABLE TO WALK IN MORNING PAIN IS DECREASED BY:USE OF PAIN MEDICATIONS POSITIONING, STAYING OFF RIGHT SIDE NURSING NOTE: -. PAIN CENTER INTAKE QUESTIONS: DO YOU HAVE A HISTORY OF MRSA? :NO DO YOU TAKE A BLOOD THINNERS? :NO DO YOU HAVE ANY BLEEDING DISORDERS? :NO ANY NEW NUMBNESS OR WEAKNESS IN YOUR LEGS OR ARMS? :NO ANY PACEMAKER,DEFIBRILLATOR, OR DORSAL COLUMN STIMULATOR? :NO DO YOU HAVE ANY RASHES OR OPEN SORES? :NO ARE YOU ALLERGIC TO IV DYE? :NO ARE YOU DIABETIC? :NO ANY NEW PROBLEMS WITH YOUR MEDICATIONS? :NO HAVE YOU RECEIVED A VACCINE IN THE PAST 30 DAYS? :NO DO YOU PLAN TO RECEIVE A VACCINE IN THE NEXT 21 DAYS? :YES IF SO WHAT VACCINE AND WHEN? DISCUSSED FLU SHOT AND WILL SCHEDULE AFTER PROCEDURE DO YOU NEED ANY PRESCRIPTION? :NO DO YOU TAKE ANY IMMUNOSUPPRESSIVE MEDICATIONS? :NO IS THERE A CHANCE YOU COULD BE ? :NO ARE YOU BREAST FEEDING? :NO CURRENT MEDICATIONS TAKING FLUTICASONE PROPIONATE 50 MCG/ACT SUSPENSION 1 SPRAY IN EACH NOSTRIL NASALLY TWICE A DAY TAKING ACYCLOVIR 800 MG TABLET 1 TABLET NEEDED ORALLY TWICE A DAY TAKING TRAZODONE HCL 50 MG TABLET 0.5 - 1 TABLET AT BEDTIME NEEDED ORALLY ONCE A DAY TAKING OMEPRAZOLE 20 MG CAPSULE DELAYED RELEASE 1 CAPSULE 30 MINUTES BEFORE MORNING MEAL ORALLY ONCE A DAY TAKING VENLAFAXINE HCL ER 150 CAPSULE 1 CAPSULE WITH FOOD ORALLY ONCE A DAY TAKING VENLAFAXINE HCL ER 75 MG CAPSULE EXTENDED RELEASE 24 HOUR 1 CAPSULE WITH FOOD ORALLY ONCE A DAY TAKING PROGESTERONE MICRONIZED 100 MG CAPSULE 1 CAPSULE AT BEDTIME ORALLY ONCE A DAY TAKING TIZANIDINE HCL 4 MG TABLET 1 TABLET NEEDED ORALLY FOR SPASMS AND PAIN BEFORE BEDTIME MAY REPEAT IN 5 HRS MDD2 TAKING DIAZEPAM 5 MG TABLET 1 TABLET NEEDED ORALLY BID; MDD _#2 TAKING LYRICA 100 MG CAPSULE 1 CAPSULE ORALLY FOR PAIN TWICE DAILY TAKING OXYCODONE-ACETAMINOPHEN 10-325 MG TABLET 1 TABLET NEEDED ORALLY FOR PAIN EVERY 8 HRS MDD3 NOT-TAKING MELOXICAM 7.5 MG TABLET 1 TABLET ORALLY ONCE A DAY NOT-TAKING IBUPROFEN 800 MG TABLET 1 TABLET ORALLY TWICE TIMES A DAY, NOTES: NEEDS REFILL NOT-TAKING ESTRACE 0.5 MG TABLET 1 TABLET ORALLY DAILY NOT-TAKING TIZANIDINE HCL 4 MG TABLET 1 TABLET NEEDED ORALLY BEFORE BEDTIME MEDICATION LIST REVIEWED AND RECONCILED WITH THE PATIENT PAST MEDICAL HISTORY ANXIETY DEPRESSION CHRONIC PAIN IN NECK AND BACK ASCVD 10 YEAR RISK 3.1% IN 11/2019 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 SURGICAL HISTORY RIGHT SHOULDER FOR ROTATOR CUFF LEFT SHOULDER FOR BONE SPURS SURGERIES TO FEET FOR BONE SPURS ON TOES LAPAROSCOPY UTERINE BIOPSY-DODARD BONE SPUR LEFT SECOND TOE 01/20 BACK SURGERY 11/18/18 CYSTOSCOPY 02/2019 COLONOSCOPY - ADENOMATOUS POLYP/TUBULAR ADENOMA REMOVED, DR. HOLDER, REPEAT IN 5 YEARS 05/2019 BACK FUSION 11/2019 FAMILY HISTORY FATHER: , LUNG CANCER MOTHER: , LUNG CANCER; DEPRESSION SIBLINGS: ALIVE, SISTER HAD A PITUITARY TUMOR AND A STROKE HAS PASSED. 1 BROTHER(S) , 2 SISTER(S) . DENIES FAMILY HISTORY OF BREAST, COLON, OR OVARIAN CANCER. \\\\\\\\\\\\\\\\NNO FAMILY HX OF MELANOMA OR PANCREATIC CANCER. DENIES FAMILY HISTORY OF UROLOGICAL DX. SOCIAL HISTORY GENERAL: TOBACCO USE ARE YOU A:FORMER SMOKER SMOKED ABOUT 1/2 PPD STARTED SMOKING 16YRS OLD ONLY SMOKED WHILE DRINKING AND QUIT A COUPLE YEARS AGO HOW LONG HAS IT BEEN SINCE YOU LAST SMOKED?1-5 YEARS LATEX QUESTIONNAIRE LATEX ALLERGY : HAVE YOU EVER DEVELOPED ANY TYPE OF REACTION AFTER HANDLING LATEX PRODUCTS SUCH RUBBER GLOVES, CONDOMS, DIAPHRAGMS, BALLOONS, SOCKS, OR UNDERWEAR?NO LATEX ALLERGY : HAVE YOU EVER DEVELOPED ANY TYPE OF REACTION DURING OR AFTER DENTAL APPOINTMENT, VAGINAL/RECTAL EXAMINATION, SURGICAL PROCEDURE, OR ANY OTHER EXPOSURE?NO LATEX RISK : HAVE YOU EVER HAD ANY DIFFICULTY BREATHING OR HIVES AFTER EATING OR HANDLING ANY FRUITS, OR VEGETABLES; SUCH KIWI, BANANAS, STONE FRUITS, OR CHESTNUTSNO LATEX RISK : DO YOU HAVE A PREVIOUS PERSONAL HISTORY OF MORE THAN NINE SURGERIES, SPINA BIFIDA, OR REPEATED CATHERIZATIONS? NO LATEX RISK : ARE YOU FREQUENTLY EXPOSED TO LATEX PRODUCTS IN YOUR OCCUPATION?YES DATE ASKED : 08/19/2020 ALCOHOL SCREENING DID YOU HAVE A DRINK CONTAINING ALCOHOL IN THE PAST YEAR?YES HOW OFTEN DID YOU HAVE SIX OR MORE DRINKS ON ONE OCCASION IN THE PAST YEAR?NEVER (0 POINTS) HOW MANY DRINKS DID YOU HAVE ON A TYPICAL DAY WHEN YOU WERE DRINKING IN THE PAST YEAR?1 OR 2 (0 POINTS) HOW OFTEN DID YOU HAVE A DRINK CONTAINING ALCOHOL IN THE PAST YEAR?TWO TO FOUR TIMES A MONTH (2 POINTS) POINTS2 INTERPRETATIONNEGATIVE RECREATIONAL DRUG USE DRUG USE?NO CAFFEINE CAFFEINE USE?YES ICED TEA = 2 LARGE CUPS PER DAY SEXUAL HX HAD SEX IN THE LAST 12 MONTHS (VAGINAL, ORAL, OR ANAL)?NO LMP:POST MENOPAUSE HAVE YOU EVER HAD AN STD?NO HIV / HEP-C SCREENING HIV TEST OFFERED TO PATIENT:YES DATE OFFERED:10/22/2019 TEST ACCEPTED:NO HEP-C TEST OFFERED TO PATIENT:YES DATE OFFERED:02/07/2017 REASON:PATIENT DECLINED TEST ACCEPTED:NO REASON:PATIENT DECLINED BROCHURE PROVIDED TO PATIENTNO YARSANI [id number] EVANGELICAL NO CHRISTIAN BELIEFS THAT WOULD IMPACT HEALTH CARE. LANGUAGE LANGUAGES SPOKEN:CITIZEN OF [place] EDUCATION LEVEL OF EDUCATION:FINISHED COLLEGE LEARNING BARRIERS / SPECIAL NEEDS CHANGE FROM LAST VISIT?NO BARRIERS TO LEARNING?NO HEARING IMPAIRED?NO VISION IMPAIRED?YES :CORRECTIVE LENSES COGNITIVELY IMPAIRED?NO READINESS TO LEARN?YES LEARNING PREFERENCES?NO LEARNING CAPABILITIES PRESENT?YES EMOTIONAL BARRIERS?NO SPECIAL DEVICES?NO ANALYSIS ANALYST NEEDED?NO DOMESTIC VIOLENCE DO YOU FEEL SAFE IN YOUR ENVIRONMENT?YES OCCUPATION: UNEMPLOYED. DIET: REGULAR. EXERCISE: NO REGULAR EXERCISE. MARITAL STATUS: . OTHERS AT HOME: FRIEND STAYING WITH JAMES. PAIN CLINIC PFS, CLERGY, PUBLIC HEALTH REFERRALS PFS REFERRAL NEEDED?NO CLERGY REFERRAL NEEDED?NO PUBLIC HEALTH REFERRAL NEEDED?NO WAS THE PROVIDER NOTIFIED OF ANY PERTINENT INFO?YES HAS THE PATIENT BEEN EDUCATED REGARDING HIS/HER PLAN OF CARE?YES HAS THE PATIENT BEEN EDUCATED REGARDING PAIN, THE RISK FOR PAIN, THE IMPORTANCE OF EFFECTIVE PAIN MANAGEMENT, AND THE PAIN ASSESSMENT PROCESS?YES ADVANCE DIRECTIVE ADVANCE DIRECTIVE DISCUSSED WITH PATIENT:YES PT STATES THAT SHE DOES NOT HAVE HCP AT THIS TIME, PT GIVEN PAPERWORK AND WILL FILL OUT HOSPITALIZATION/MAJOR DIAGNOSTIC PROCEDURE FOR SURGERIES REVIEW OF SYSTEMS GLAUCOMA: NOTHYROID DISEASE: NOHYPERTENSION: NOHEART DISEASE: NOLUNG DISEASE: NODIABETES: NOGI DISEASE: NO LIVER DISEASE: NO KIDNEY DISEASE: NOSTERIOD USE: NONEUROLOGICAL DISEASE: NOBACK PROBLEMS: NOEXTREMITIES: NOGENITOURINARY: NOBLEEDING DISORDER: NOASA CLASS: IAIRWAY CLASS: II. VITAL SIGNS WT 155.4 LBS, HT 62 IN, BMI 28.42 INDEX, BP 167/76 MM HG, HR 80 /MIN, RR 18 /MIN, TEMP 97.4 F, OXYGEN SAT % 96%, SAFE IN ENV? (Y/N) Y, NA INITIALS AW 1538, REVIEWED BY: MARIANA. EXAMINATION GENERAL EXAMINATION: THE PATIENT IS ALERT, ORIENTED TIMES THREE AND COOPERATIVE. HEART SHOWS REGULAR RHYTHM, NO MURMURS AND NO GALLOPS. LUNGS ARE CLEAR TO AUSCULTATION. SHE IS LIMPING MAINLY FROM THE RIGHT LEG. THERE IS TENDERNESS IN THE LOWER BACK IN THE PARASPINAL MUSCLE GROUP. THE RIGHT LEG IS WEAKER THAN THE LEFT ON FLEXION AND EXTENSION. STRAIGHT LEG RAISE IS POSITIVE FOR RADICULOPATHY AT 80 DEGREES. MRI OF THE LUMBAR SPINE 02/27/2020 SHOWS A FUSION FROM L3 TO S1. THERE IS SOME BULGING DISC ESPICALLY AT L5-S1, SOME POST LAMINECTOMY CHANGES AND HARDWARE. 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 RODRIGUEZ LOLY VANCE 08/23/2020 10:27:54 AM > ADMINISTERED AT 0944. ADMINISTERED AT 0945. OXYGEN AT 2 LITERS PER NASAL CANNULA (ORDERED FOR 08/20/2020)ANA PAULA LOVE 08/23/2020 9:42:35 AM > 02 2L N/C IV LACTATED RINGER'S AT KVO (ORDERED FOR 08/20/2020)ANA PAULA LOVE 08/23/2020 9:43:05 AM > IV LR INITIATED AT 0920 CLINICAL NOTES: I DISCUSSED ALTERNATIVES WITH MS. RUIZ'Hiro. WE ARE GOING TO TRY GOING TO THE ROOT OF THE NERVE TO HELP HER PAIN. WE AGREE ON PERFORMING A RIGHT TRANSFORAMINAL L4-L5, L5-S1 WITH IV SEDATION DUE TO ANXIETY AND DISCOMFORT ASSOCIATED WITH THE PROCEDURE. THE PATIENT IS AWARE THAT SHE HAS TO BE CAREFUL WITH THE MEDICATIONS AND NOT TO USE THEM WITH ALCOHOL AND KEEP THEM IN THE SAFE PLACE. THE PATIENT BROUGHT HER MORPHINE WITH HER. THE PATIENT HAS BEEN USING THE MORPHINE BUT IS CAUSING SIDE EFFECTS LIKE SEDATION. THE PATENT WILL GO BACK TO USE OXYCODONE. THE PATIENT UNDERSTANDS AND AGREES WITH THE TREATMENT PLAN. I, MALIK CLARK, DOCUMENTED THE ABOVE INFORMATION ACTING A SCRIBE FOR DR. RODRIGUEZ. I HAVE REVIEWED THE ABOVE DOCUMENT, WRITTEN BY MALIK CLARK PRETZEL COOKER, AND I VERIFY THAT IT IS ACCURATE . PROCEDURE CODES FA211 ESTABILISHED PATIENT [facility] CHARGE [address]79 OFFICE/OUTPATIENT VISIT EST DISPOSITION & COMMUNICATION FOLLOW UP ALREADY BOOKED ON SUNDAY AT 8 AM (REASON: RIGHT TRANSFORAMINAL L4-L5, L5-S1 WITH IV SEDATION) ELECTRONICALLY SIGNED BY KATJA RODRIGUEZ MD, MD ON 09/01/2020 AT 02:31 PM EDT DISCLAIMER : THIS IS A VISIT SUMMARY EXTRACTED FROM THE [employer] CHART. IT IS NOT A COPY OF THE [employer] PROGRESS NOTE. MTDD
== END ==
LOC: M PAIN 15:15
PROVIDERS: ATTEND Anesthesiology
DX: M96.1 Postlaminectomy syndrome, not elsewhere classified (principal); M51.16 Intervertebral disc disorders with radiculopathy, lumbar region; M51.17 Intervertebral disc disorders with radiculopathy, lumbosacral region; Z86.59 Personal history of other mental and behavioral disorders; Z87.891 Personal history of nicotine dependence; Z79.899 Other long term (current) drug therapy

== ENCOUNTER → 2020-08-23 | Outpatient (CLI) | payer OTHER ==
[~2020-08-23] MED LIST changes: +BUPIVACAINE HCL 0.25% 30ML VIAL As Ordered ONE; +ISOVUE-M 300 61% 15ML VIAL As Ordered ONE; +LIDOCAINE 1% SDV 30ML VIAL As Ordered ONE; +MIDAZOLAM INJ 2MG/2ML VIAL (J2250 PER 1MG) As Ordered ONE; +dexameTHASONE 10MG/1ML VIAL PRES.FREE (J1100 PER 1MG) As Ordered ONE; +fentaNYL 100 MCG/2 ML INJECTION (J3010) As Ordered ONE
--- NOTE | 2020-08-23 10:31 | REP ---
INDICATION: RIGHT TRANSFORAMINAL L4/L5, L5/S1. PAIN COMPARISON: 2019 TECHNIQUE: MULTIPLE C-ARM VIEWS LOWER LUMBAR SPINE PERFORMED FINDINGS: FUSION RODS AND PEDICLE SCREWS ARE SEEN AT L3 THROUGH S1, WELL DISC SPACERS. NEEDLES ARE SEEN ALONG THE LOWER LUMBAR SPINE. SMALL AMOUNT OF CONTRAST WAS INJECTED. IMPRESSION: 100 SECONDS FLUOROSCOPY TIME UTILIZED. <Electronically signed by Isai Oliveira > 08/23/20 102
--- NOTE | 2020-08-30 16:14 | ECWPNPC ---
PATIENT NAME: JAMES GRESHAM : 1960 GENDER: FEMALE VISIT DATE: 08/23/2020 DISCHARGE DATE: 08/23/20 1130 VISIT LOCKED DATE TIME: PHYSICIAN: KATJA RODRIGUEZ MD PHYSICIAN PAGER NO: ACTIVE RESOURCE: KATJA RODRIGUEZ MD REASON FOR APPOINTMENT 1. RIGHT TRANSFORAMINAL L4/L5, L5/S1 W/ IV SEDATION HISTORY OF PRESENT ILLNESS GENERAL: -. FALL RISK SCREENING: SCREENING :TWO OR MORE FALLS WITHOUT INJURY IN THE PAST YEAR NO INJURY WITH FALLS. NO MEDICAL EVALUATION POST FALLS. PAIN SCREENING: PATIENT HAS A COMPLAINT OF ACUTE OR CHRONIC PAIN :YES LOCATION OF PAIN:LOW BACK, RIGHT HIP, LEG(S) INTENSITY OF PAIN (SCALE OF 1 TO 10):9 WHAT DOES YOUR PAIN FEEL LIKE:ACHING, BURNING, CONTINOUS, SHARP, STABBING, SHOOTING DURATION:CONTINOUS, CONSTANT PAIN IS INCREASED BY:OTHERS PT C/O INCREASED PAIN UPON AWAKENING PAIN IS DECREASED BY:USE OF PAIN MEDICATIONS, OTHERS NURSING NOTE: -. PAIN CENTER INTAKE QUESTIONS: DO YOU HAVE A HISTORY OF MRSA? :NO DO YOU TAKE A BLOOD THINNERS? :NO DO YOU HAVE ANY BLEEDING DISORDERS? :NO ANY NEW NUMBNESS OR WEAKNESS IN YOUR LEGS OR ARMS? :NO ANY PACEMAKER,DEFIBRILLATOR, OR DORSAL COLUMN STIMULATOR? :NO DO YOU HAVE ANY RASHES OR OPEN SORES? :NO ARE YOU ALLERGIC TO IV DYE? :NO ARE YOU DIABETIC? :NO ANY NEW PROBLEMS WITH YOUR MEDICATIONS? :NO HAVE YOU RECEIVED A VACCINE IN THE PAST 30 DAYS? :NO DO YOU PLAN TO RECEIVE A VACCINE IN THE NEXT 21 DAYS? :NO PT EDUCATED REGARDING AVOIDANCE OF FLU VACCINE FOR MINIMUM OF 21 DAYS POST PROCEDURE. DO YOU TAKE ANY IMMUNOSUPPRESSIVE MEDICATIONS? :NO ANY HISTORY OF SEIZURES? :NO ANY HISTORY OF CARDIAC ISSUES OR EVENTS? :NO DO YOU HAVE SLEEP APNEA? :NO ANY RECENT HEAD INJURY? :NO DO YOU HAVE ANY NEW INFECTIONS? :NO IS THERE A CHANCE YOU COULD BE ? :NO ARE YOU BREAST FEEDING? :NO WHEN DID YOU LAST EAT? : -08/22 1900 WHEN DID YOU LAST DRINK? : -08/23 0500 WHAT DID YOU LAST DRINK? : WATER NAME OF PERSON DRIVING YOU HOME? : -[place] DO YOU HAVE ANY OTHER QUESTIONS OR CONCERNS? : - CURRENT MEDICATIONS TAKING FLUTICASONE PROPIONATE 50 MCG/ACT SUSPENSION 1 SPRAY IN EACH NOSTRIL NASALLY TWICE A DAY, NOTES: 08/21 TAKING ACYCLOVIR 800 MG TABLET 1 TABLET NEEDED ORALLY TWICE A DAY, NOTES: 1 YEAR TAKING TRAZODONE HCL 50 MG TABLET 0.5 - 1 TABLET AT BEDTIME NEEDED ORALLY ONCE A DAY, NOTES: 08/21 TAKING OMEPRAZOLE 20 MG CAPSULE DELAYED RELEASE 1 CAPSULE 30 MINUTES BEFORE MORNING MEAL ORALLY ONCE A DAY, NOTES: 2 WKS AGO TAKING VENLAFAXINE HCL ER 150 CAPSULE 1 CAPSULE WITH FOOD ORALLY ONCE A DAY, NOTES: 1017 899 TAKING VENLAFAXINE HCL ER 75 MG CAPSULE EXTENDED RELEASE 24 HOUR 1 CAPSULE WITH FOOD ORALLY ONCE A DAY, NOTES: 08/22 900 TAKING PROGESTERONE MICRONIZED 100 MG CAPSULE 1 CAPSULE AT BEDTIME ORALLY ONCE A DAY, NOTES: 08/22 900 TAKING TIZANIDINE HCL 4 MG TABLET 1 TABLET NEEDED ORALLY FOR SPASMS AND PAIN BEFORE BEDTIME MAY REPEAT IN 5 HRS MDD2, NOTES: 4-5 DAYS TAKING DIAZEPAM 5 MG TABLET 1 TABLET NEEDED ORALLY BID; MDD _#2, NOTES: 1 MONTH TAKING LYRICA 100 MG CAPSULE 1 CAPSULE ORALLY FOR PAIN TWICE DAILY, NOTES: 08/21 TAKING OXYCODONE-ACETAMINOPHEN 10-325 MG TABLET 1 TABLET NEEDED ORALLY FOR PAIN EVERY 8 HRS MDD3, NOTES: 08/22 2400 TAKING MORPHINE SULFATE 15 MG TABLET 1 TABLET NEEDED ORALLY EVERY 4 HRS, NOTES: 2 WEEKS AGO NOT-TAKING MELOXICAM 7.5 MG TABLET 1 TABLET ORALLY ONCE A DAY NOT-TAKING IBUPROFEN 800 MG TABLET 1 TABLET ORALLY TWICE TIMES A DAY, NOTES: NEEDS REFILL NOT-TAKING ESTRACE 0.5 MG TABLET 1 TABLET ORALLY DAILY NOT-TAKING TIZANIDINE HCL 4 MG TABLET 1 TABLET NEEDED ORALLY BEFORE BEDTIME MEDICATION LIST REVIEWED AND RECONCILED WITH THE PATIENT PAST MEDICAL HISTORY ANXIETY DEPRESSION CHRONIC PAIN IN NECK AND BACK ASCVD 10 YEAR RISK 3.1% IN 11/2019 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 SURGICAL HISTORY RIGHT SHOULDER FOR ROTATOR CUFF LEFT SHOULDER FOR BONE SPURS SURGERIES TO FEET FOR BONE SPURS ON TOES LAPAROSCOPY UTERINE BIOPSY-DODARD BONE SPUR LEFT SECOND TOE 01/20 BACK SURGERY 11/18/18 CYSTOSCOPY 02/2019 COLONOSCOPY - ADENOMATOUS POLYP/TUBULAR ADENOMA REMOVED, DR. HOLDER, REPEAT IN 5 YEARS 05/2019 BACK FUSION 11/2019 FAMILY HISTORY FATHER: , LUNG CANCER MOTHER: , LUNG CANCER; DEPRESSION SIBLINGS: ALIVE, SISTER HAD A PITUITARY TUMOR AND A STROKE HAS PASSED. 1 BROTHER(S) , 2 SISTER(S) . DENIES FAMILY HISTORY OF BREAST, COLON, OR OVARIAN CANCER. \\\\\\\\\\\\\\\\NNO FAMILY HX OF MELANOMA OR PANCREATIC CANCER. DENIES FAMILY HISTORY OF UROLOGICAL DX. SOCIAL HISTORY GENERAL: TOBACCO USE ARE YOU A:FORMER SMOKER SMOKED ABOUT 1/2 PPD STARTED SMOKING 16YRS OLD ONLY SMOKED WHILE DRINKING AND QUIT A COUPLE YEARS AGO HOW LONG HAS IT BEEN SINCE YOU LAST SMOKED?1-5 YEARS LATEX QUESTIONNAIRE LATEX ALLERGY : HAVE YOU EVER DEVELOPED ANY TYPE OF REACTION AFTER HANDLING LATEX PRODUCTS SUCH RUBBER GLOVES, CONDOMS, DIAPHRAGMS, BALLOONS, SOCKS, OR UNDERWEAR?NO LATEX ALLERGY : HAVE YOU EVER DEVELOPED ANY TYPE OF REACTION DURING OR AFTER DENTAL APPOINTMENT, VAGINAL/RECTAL EXAMINATION, SURGICAL PROCEDURE, OR ANY OTHER EXPOSURE?NO DATE ASKED : 08/19/2020 LATEX RISK : HAVE YOU EVER HAD ANY DIFFICULTY BREATHING OR HIVES AFTER EATING OR HANDLING ANY FRUITS, OR VEGETABLES; SUCH KIWI, BANANAS, STONE FRUITS, OR CHESTNUTSNO LATEX RISK : DO YOU HAVE A PREVIOUS PERSONAL HISTORY OF MORE THAN NINE SURGERIES, SPINA BIFIDA, OR REPEATED CATHERIZATIONS? NO LATEX RISK : ARE YOU FREQUENTLY EXPOSED TO LATEX PRODUCTS IN YOUR OCCUPATION?YES ALCOHOL SCREENING DID YOU HAVE A DRINK CONTAINING ALCOHOL IN THE PAST YEAR?YES HOW OFTEN DID YOU HAVE SIX OR MORE DRINKS ON ONE OCCASION IN THE PAST YEAR?NEVER (0 POINTS) HOW MANY DRINKS DID YOU HAVE ON A TYPICAL DAY WHEN YOU WERE DRINKING IN THE PAST YEAR?1 OR 2 (0 POINTS) HOW OFTEN DID YOU HAVE A DRINK CONTAINING ALCOHOL IN THE PAST YEAR?TWO TO FOUR TIMES A MONTH (2 POINTS) POINTS2 INTERPRETATIONNEGATIVE RECREATIONAL DRUG USE DRUG USE?NO CAFFEINE CAFFEINE USE?YES ICED TEA = 2 LARGE CUPS PER DAY SEXUAL HX HAD SEX IN THE LAST 12 MONTHS (VAGINAL, ORAL, OR ANAL)?NO LMP:POST MENOPAUSE HAVE YOU EVER HAD AN STD?NO HIV / HEP-C SCREENING HIV TEST OFFERED TO PATIENT:YES DATE OFFERED:10/22/2019 TEST ACCEPTED:NO HEP-C TEST OFFERED TO PATIENT:YES DATE OFFERED:02/07/2017 REASON:PATIENT DECLINED TEST ACCEPTED:NO REASON:PATIENT DECLINED BROCHURE PROVIDED TO PATIENTNO [facility] [id number] [place] NO CHRISTIANITY BELIEFS THAT WOULD IMPACT HEALTH CARE. LANGUAGE LANGUAGES SPOKEN:ITALIAN EDUCATION LEVEL OF EDUCATION:FINISHED COLLEGE LEARNING BARRIERS / SPECIAL NEEDS CHANGE FROM LAST VISIT?NO BARRIERS TO LEARNING?NO HEARING IMPAIRED?NO VISION IMPAIRED?YES COGNITIVELY IMPAIRED?NO :CORRECTIVE LENSES READINESS TO LEARN?YES LEARNING PREFERENCES?NO LEARNING CAPABILITIES PRESENT?YES EMOTIONAL BARRIERS?NO SPECIAL DEVICES?NO WEBSPHERE MESSAGE BROKER DEVELOPER NEEDED?NO DOMESTIC VIOLENCE DO YOU FEEL SAFE IN YOUR ENVIRONMENT?YES OCCUPATION: UNEMPLOYED. DIET: REGULAR. EXERCISE: NO REGULAR EXERCISE. MARITAL STATUS: . OTHERS AT HOME: FRIEND STAYING WITH JAMES. PAIN CLINIC PFS, CLERGY, PUBLIC HEALTH REFERRALS PFS REFERRAL NEEDED?NO CLERGY REFERRAL NEEDED?NO PUBLIC HEALTH REFERRAL NEEDED?NO WAS THE PROVIDER NOTIFIED OF ANY PERTINENT INFO?YES HAS THE PATIENT BEEN EDUCATED REGARDING HIS/HER PLAN OF CARE?YES HAS THE PATIENT BEEN EDUCATED REGARDING PAIN, THE RISK FOR PAIN, THE IMPORTANCE OF EFFECTIVE PAIN MANAGEMENT, AND THE PAIN ASSESSMENT PROCESS?YES ADVANCE DIRECTIVE ADVANCE DIRECTIVE DISCUSSED WITH PATIENT:YES PT STATES THAT SHE DOES NOT HAVE HCP AT THIS TIME, PT GIVEN PAPERWORK AND WILL FILL OUT HOSPITALIZATION/MAJOR DIAGNOSTIC PROCEDURE FOR SURGERIES VITAL SIGNS WT 162.2 LBS, HT 62 IN, BMI 29.66 INDEX, BP 125/60 MM HG, HR 80 /MIN, RR 18 /MIN, TEMP 96.7 F, OXYGEN SAT % 97%, SAFE IN ENV? (Y/N) Y, NA INITIALS UT 08:24, REVIEWED BY: MARIN. EXAMINATION GENERAL EXAMINATION: A HISTORY AND PHYSICAL EXAM ON THE PATIENT WAS DONE ON 08/20/2020 (DATE OF ORIGINAL ASSESSMENT) IN PREPARATION OF SURGERY/PROCEDURE. I HAVE NOW REASSESSED THIS PATIENT'S HEALTH STATUS AND PERFORMED AN UPDATED EXAM TODAY. ALL CHANGES IN THE PATIENT'S HISTORY, PHYSICAL EXAM, PRE-EXISTING CONDITONS, AND INDICATIONS/CONTRAINDICATIONS TO THE PLANNED PROCEDURE AND ANESTHESIA ARE DOCUMENTED AND EVALUATED BELOW. I ATTEST TO THE ADEQUACY AND APPROPRIATENESS OF MY ASSESSMENT, AND CONFIRM THE NECESSITY FOR THE PLANNED PROCEDURE. THE PATIENT IS ALERT, ORIENTED TIMES THREE AND COOPERATIVE. HEART SHOWS REGULAR RHYTHM, NO MURMURS AND NO GALLOPS. LUNGS ARE CLEAR TO AUSCULTATION. ASSESSMENTS LUMBAR POST-LAMINECTOMY SYNDROME - M96.1 (PRIMARY) INTERVERTEBRAL DISC DISORDERS WITH RADICULOPATHY, LUMBAR REGION - M51.16 TREATMENT LUMBAR POST-LAMINECTOMY SYNDROME [facility] FLUORO GUIDE SPINE INJECTION (PAIN)[id number] MEDICATION: VERSED 1MG IV (MIDAZOLAM)LOLY VANCE 08/23/2020 8:54:06 AM > LOT #: [id number] EXP: 01/2023 ANA PAULA LOVE 08/23/2020 8:58:01 AM > VERIFIED MALIK CLARK 08/23/2020 09:54:32 AM - GIVE SECOND DOSE, VERIFIED WITH DR. ISHAAN VANCELOLY 08/23/2020 10:27:19 AM > ADMINISTERED AT 0943. ADMINISTERED AT 0953. MEDICATION: FENTANYL CITRATE 50MCG IV LOLY VANCE 08/23/2020 8:47:43 AM > LOT #: [id number] EXP: 02/2022 ANA PAULA LOVE 08/23/2020 8:58:30 AM > VERIFIED DILEONAROMANMALIK 08/23/2020 09:46:10 AM - GIVE SECOND DOSE, VERIFIED WITH DR. MICHAEL VANCELOLY 08/23/2020 10:27:54 AM > ADMINISTERED AT 0944. ADMINISTERED AT 0945. OXYGEN AT 2 LITERS PER [facility] 08/23/2020 9:42:35 AM > 02 2L N/C [facility] 08/23/2020 9:43:05 AM > IV LR INITIATED AT 0920 INTERVERTEBRAL DISC DISORDERS WITH RADICULOPATHY, LUMBAR REGION [facility] FLUORO GUIDE SPINE INJECTION (PAIN)[id number] OTHERS NOTES: PAT COMPLETED BY MARIANA . PROCEDURES PAIN NURSING RECORD PRE-PROCEDURE IV SITE LEFT HAND SEE IV ORDER NOTE PROCEDURE IN ROOM 0925, PHYSICIAN IN ROOM 0943, START 0952, FINISH 1014, PHYSICIAN OUT OF ROOM 1017, OUT OF ROOM 1023 VIA STRETCHER, STEROID DEXAMETHASONE, O2 NC 2 LPM AT 0930, ECG NORMAL SINUS, PATIENT SHIELDED YES, SAFETY STRAP YES, PREP BETADINE Tiki LOVE RN, IV INFUSED LACTATED RINGERS LR 800CC INFUSED, DRESSING TEGADERM BY DR RODRIGUEZ LOC: ANA PAULA LOVE 08/23/2020 9:34:41 AM > , 1. ALERT, ORIENTED , ANA PAULA LOVE 08/23/2020 9:53:31 AM > , 2. DROWSY, RESPONDS APPROPRIATELY ANA PAULA LOVE 08/23/2020 10:47:25 AM > , 1. ALERT, ORIENTED, RESP: ANA PAULA LOVE 08/23/2020 09:25:50 AM > , 1. REGULAR, NO DYSPNEA COLOR: ANA PAULA LOVE 08/23/2020 9:34:52 AM > , 1. PINK SKIN: ANA PAULA LOVE 08/23/2020 9:34:58 AM > , 1. WARM, DRY POSITION: 1. PRONE VITALS: ANA PAULA LOVE 08/23/2020 9:30:19 AM > 173/81 HR 65 18 100% , ANA PAULA LOVE 08/23/2020 9:35:54 AM > 157/78 HR 63 18 100% , ANA PAULA LOVE 08/23/2020 9:40:14 AM > 149/79, HR 73, 18, 100% , ANA PAULA LOVE 08/23/2020 9:45:35 AM > 146/70 HR 77 18 99% , ANA PAULA LOVE 08/23/2020 9:50:13 AM > 128/62 HR 72 18 98% , ANA PAULA LOVE 08/23/2020 9:55:39 AM > 125/62, HR 70 18, 95% , ANA PAULA LOVE 08/23/2020 10:00:06 AM > 125/65 HR 75 18 98% , ANA PAULA LOVE 08/23/2020 10:05:13 AM > , 137/71 HR 72, 18 99% , ANA PAULA LOVE 08/23/2020 10:10:15 AM > 136/79 HR 74 18, 97% , ANA PAULA LOVE 08/23/2020 10:15:33 AM > 131/74 HR 79 18 99% , ANA PAULA LOVE 08/23/2020 10:20:14 AM > 131/81 HR 71 18 98% , ANA PAULA LOVE 08/23/2020 10:25:53 AM > 130/63 HR 70 18 97% DISCHARGE: POST PAIN 0/10, DRESSING SITE DRY AND INTACT OPSITE INTACT, IV DISCONTINUED, SITE CLEAR, CATHETER INTACT, GAIT WHEELCHAIR, TEACHING COMPLETED, PATIENT ACKNOWLEDGES UNDERSTANDING YES, PATIENT DISCHARGED AT 1056. REVIEWED DISCHARGE INSTRUCTIONS WITH PT. PT VERBALIZED UNDERSTANDING. REVIEWED IMPORTANCE OF REVIEWING MEDICATIONS AT FOLLOW UP APPT WITH DR RODRIGUEZ. PN LUMBAR TRANSFORAMINAL BLOCKS PRE PROCEDURE DIAGNOSIS LUMBAR POST LAMINECTOMY PAIN SYNDROME POST PROCEDURE DIAGNOSIS LUMBAR POST LAMINECTOMY PAIN SYNDROME PROCEDURE RIGHT L4 AND RIGHT L5 TRANSFORAMINAL EPIDURAL STEROID INJECTION UNDER FLUOROSCOPIC GUIDANCE SURGEON DR KATJA RODRIGUEZ CONFIGURATION MANAGEMENT ADMINISTRATOR NONE ANESTHESIA LOCAL PRE PROCEDURE NOTE THE PATIENT WITH HISTORY OF CHRONIC LOW BACK PAIN. I EVALUATED THE PATIENT AND REVIEWED THE CHART. I WENT OVER THE RISKS, ALTERNATIVES, AND BENEFITS ASSOCIATED WITH THIS PROCEDURE. THE PATIENT WOULD LIKE TO PROCEED AND GIVE CONSENT TO PERFORMED THE PROCEDURE. I DISCUSSED THAT THE USE OF STEROIDS MAY CONTRIBUTE TO IMMUNOSUPPRESSION OF THE PATIENT'S BODY AGAINST INFECTIONS SUCH COVID-19. THE PATIENT IS AWARE OF THE POTENTIAL COMPLICATIONS ASSOCIATED WITH THIS VIRUS, INCLUDING, BUT NOT LIMITED TO, . THE PATIENT WOULD LIKE TO MOVE FORWARD WITH IV SEDATION DUE TO ANXIETY AND DISCOMFORT ASSOCIATED WITH THE PROCEDURE. THE PATIENT DENIES UNEXPLAINABLE WEIGHT LOSS, FEVER, CHILLS, OR CHANGES IN URINARY OR BOWEL CONTROL. THE PATIENT IS COVID-19 NEGATIVE DESCRIPTION OF PROCEDURE THE PATIENT WAS BROUGHT TO THE PROCEDURE ROOM AND PLACED IN THE PRONE POSITION. THE LUMBOSACRAL AREA WAS CLEANED WITH BETADINE SOLUTION AND DRAPED ASEPTICALLY. THE PROCEDURE WAS DONE UNDER STERILE CONDITIONS. A TIMEOUT WAS PERFORMED WHERE LATERALITY AND THE SITE OF THE PROCEDURE WERE CHECKED AND CONFIRMED WITH EVERYONE IN THE ROOM. UNDER FLUOROSCOPIC GUIDANCE, THE TARGET POINT WAS SELECTED AT THE RIGHT TRANSFORAMINAL OPENING OF L4 AND RIGHT TRANSFORMATIONAL OPENING OF L5. TARGET POINT WAS SELECTED AFTER LATERAL ROTATION AND TILT OF THE MAGNIFIER OF THE C-ARM. I CONFIRMED AGAIN WITH EVERYONE IN THE ROOM THE LATERALITY OF THE TARGET AT 0952. LIDOCAINE 0.5% WAS USED TO NUMB THE SKIN AND THE SUBCUTANEOUS TISSUE BELOW IT. AN EPIMED INTRODUCER, 18-GAUGE, WAS ADVANCED UNTIL I WENT CLOSE TO THE SELECTED TRANSFORAMINAL OPENINGS. AFTER PROPER POSITION OF THE NEEDLES WAS ACHIEVED, A 22-GAUGE, EPIMED NEEDLE, WAS PLACED INSIDE OF THE INTRODUCER AND ADVANCED TO THE TRANSFORAMINAL OPENING OF THE SELECTED SITES. WHEN PROPER POSITION OF THE NEEDLE WAS ACHIEVED, ISOVUE-M DYE 30%, 0.25 ML, WAS INJECTED SHOWING ADEQUATE SPREAD OF THE DYE. THIS WAS DONE UNDER DIGITAL SUBTRACTION AND ANGIOGRAPHY. THERE WAS NO VASCULAR UPDATE. THEN, A SOLUTION OF 2 ML OF BUPIVACAINE 0.25% AND DEXAMETHASONE 10 MG WAS INJECTED AT EACH SITE. THE MEDICATION WAS VERIFIED WITH THE NURSE. THERE WAS NO EVIDENCE OF BLOOD, PARESTHESIA OR CEREBROSPINAL FLUID DURING THE PROCEDURE. THE PATIENT WAS SENT TO THE RECOVERY ROOM. THE PATIENT WAS MOVING THE EXTREMITIES AND DOING WELL. THERE WAS NO COMPLICATION DURING THE PROCEDURE. ESTIMATED BLOOD LOSS WAS LESS THAN 5 ML. FLUOROSCOPY TIME WAS 1 MINUTE 39 SECONDS. [id number]-AM-IWUH START TIME 0944. [id number]-II-[id number] END TIME 1017. TOTAL [id number] TIME 33 MINUTES. POST PROCEDURE NOTE THE PATIENT STATES THAT SHE IS IN A LOT OF PAIN. SHE WILL FOLLOW UP WITH ME THIS WEEK THE PROCEDURE DONE WAS DISCUSSED WITH THE PATIENT. THE PATIENT WILL BE SEEN IN A FOLLOW UP IN THE NEXT FEW WEEKS. I AM LOOKING FOR LONG LASTING PAIN RELIEF FOR THE PATIENT WITH THIS INTERVENTION. INSTRUCTIONS WERE GIVEN, QUESTIONS WERE ANSWERED, AND THE PATIENT EXPRESSED UNDERSTANDING AND AGREES WITH THE PLAN. I, MALIK CLARK, DOCUMENTED THE ABOVE INFORMATION ACTING A SCRIBE FOR DR. RODRIGUEZ. I HAVE REVIEWED THE ABOVE DOCUMENT, WRITTEN BY MALIK CLARK, HARD ROCK DRILL OPERATOR, AND I VERIFY THAT IT IS ACCURATE PROCEDURE CODES 42410 INJ FORAMEN EPIDURAL L/S, MODIFIERS: RT 44314 INJ FORAMEN EPIDURAL ADD-ON, [place]: [place] [address] MOD SED SAME PHYS/QHP 5/>YRS 36530 MOD SED SAME PHYS/QHP EA DISPOSITION & COMMUNICATION FOLLOW UP FOLLOW UP WITH DR. Fowler (REASON: POST RIGHT TRANSFORAMINAL L4, L5 WITH IV SEDATION) ELECTRONICALLY SIGNED BY KATJA RODRIGUEZ MD, MD ON 08/30/2020 AT 01:11 PM EDT DISCLAIMER : THIS IS A VISIT SUMMARY EXTRACTED FROM THE [employer] CHART. IT IS NOT A COPY OF THE [employer] PROGRESS NOTE. GIRAM
== END ==
LOC: M PAIN 08:00
PROVIDERS: ATTEND Anesthesiology
DX: M96.1 Postlaminectomy syndrome, not elsewhere classified (principal); M51.16 Intervertebral disc disorders with radiculopathy, lumbar region; F41.9 Anxiety disorder, unspecified; F32.9 Major depressive disorder, single episode, unspecified; Z85.828 Personal history of other malignant neoplasm of skin; Z79.891 Long term (current) use of opiate analgesic; Z79.899 Other long term (current) drug therapy; Z87.891 Personal history of nicotine dependence
CPT/HCPCS: 64483; 64484; 99152; 99153; J1100; J2250; J3010; Q9967

== ENCOUNTER → 2020-09-06 | Outpatient (CLI) | payer OTHER ==
[~2020-09-06] MED LIST changes: -BUPIVACAINE HCL 0.25% 30ML VIAL As Ordered ONE; +LIDOCAINE 1% MDV 20ML VIAL As Ordered ONE; -LIDOCAINE 1% SDV 30ML VIAL As Ordered ONE; -MIDAZOLAM INJ 2MG/2ML VIAL (J2250 PER 1MG) As Ordered ONE; -dexameTHASONE 10MG/1ML VIAL PRES.FREE (J1100 PER 1MG) As Ordered ONE; -fentaNYL 100 MCG/2 ML INJECTION (J3010) As Ordered ONE
--- NOTE | 2020-09-06 10:56 | REP ---
INDICATION: LUMBAR FUSION, LUMBAR RADICULITIS. COMPARISON: Comparison MRI lumbar spine March 16, 2020 as well as a preoperative MR study from November 07, 2018. Comparison CT study lumbar spine February 09, 2020.. TECHNIQUE: Injection procedures performed and dictated separately. Helical scanning is acquired and 4 mm axial images were reformatted and viewed at bone and soft tissue window settings. Coronal and sagittal MPR images are generated. Oblique axial images through and parallel to the lumbar discs are generated. FINDINGS: There is good opacification of the lumbosacral thecal sac. Patient is status post laminectomy at L4-5 and posterior element transpedicle screw interconnecting kasia dorsal fixation L3 through S1 bilaterally. There are intervertebral disc spacers fusing the L3-4 and L4-5, and the L 5 1 discs. The size of the thecal sac is improved at L3-4 and L4-5 and L5-S1 compared to the preoperative studies. There is minimal 3 mm L5-S1 spondylolisthesis. No bony neural foraminal or thecal sac compression is seen at 5 1. At L4-5 there is no visible thecal sac compression. At L3-4 canal size is improved. No writ recurrence or residual disc protrusion is seen. At L2-3, there is mild central canal narrowing. The midline AP dimension of the thecal sac at L2-3 is 6.8 mm. No disc protrusion is seen. No neural foraminal narrowing is seen. At L1-2 there is no significant finding. The tip of the conus medullaris is normal in position and appearance at L1. There is disc bulging at T12-L1. IMPRESSION: Status post L3-4 through S1 posterior element and disc fusion. Improved thecal sac size compared to preoperative study. Mild spinal stenosis L2-3. <Electronically signed by Amarjit Sahni > 09/06/20 [id number]
[2020-09-06 11:00] VITALS: BP 156/72
--- NOTE | 2020-09-06 11:54 | REP ---
INDICATION: CT CERVICAL MYELOGRAM. COMPARISON: Comparison cervical MR study July 21, 2020.. TECHNIQUE: The injection procedure is performed and dictated separately. Helical scanning is acquired and overlapping 2 mm high resolution axial images were generated and reviewed at bone and soft tissue window settings. Coronal and sagittal multiplanar re-formations images are generated. FINDINGS: There is straightening and slight reversal of the normal cervical lordosis. Cervical vertebral body heights are preserved. Alignment is otherwise normal. There is osteoarthritis at the articulation between the dens and anterior arch of C1. Craniocervical junction is otherwise unremarkable. There is minimal disc bulging at C2-3. Facet hypertrophy is noted bilaterally at C2-3, left more so than right. No foraminal stenosis is seen. No spinal stenosis is knee noted. At C3-C4, there is calcification in diffuse disc bulginga. There is a left posterior focal disc protrusion. The ventral subarachnoid space is effaced and there is flattening of the ventral margin of the cord. Sagittal images demonstrate dorsal displacement of the cord at C3-4. The midline AP dimension of the thecal sac at C3-4 is 7.7 mm. There is CS the contrast opacified CSF circumferentially visible surrounding the cord. There is minimal uncovertebral spurring bilaterally. Moderate facet osteoarthritis is visible on the left. At C4-C5, there is diffuse disc bulging and posterior osteophytic ridging effacing the ventral subarachnoid space, flattening the ventral margin of the cord slightly, so. Advanced osteoarthritic facet disease is noted on the left at C4-5. Midline AP dimension of the thecal sac is 7.2 mm. There is mild uncovertebral spurring bilaterally at C4-5. Left more so than right. At C5-C6, there is central disc bulging effacing the ventral subarachnoid space. No cord compression. There is advanced osteoarthritic facet hypertrophy on the right at C5-6 and there is some facet spurring narrowing the right neural foramen.a At C5-6, there is a broad-based centrally calcified disc protrusion flattening the ventral subarachnoid space and indenting the ventral margin of the cord. There is minimal bilateral uncovertebral spurring. Midline AP dimension of the thecal sac at C5-6 is 8 mm. At C7-T1, there is facet osteoarthritis on the right and to a lesser extent on the left. No disc protrusion is seen. IMPRESSION: Fairly advanced degenerative spondylosis change in the cervical spine with central canal stenosis and flattening of the ventral margin of the cord at C3-4 and C4-5 and C6-7. Disc protrusions are noted at C3-4 and C6-7. Osteoarthritic facet disease is noted.. <Electronically signed by Amarjit Sahni > 09/06/20 [id number]
--- NOTE | 2020-09-06 17:08 | REP ---
INDICATION: LUMBAR FUSION, LUMBAR RADICULITIS, NECK PAIN. COMPARISON: None. TECHNIQUE: The procedure was performed under the personal supervision of Dr. Sahni. The risks, benefits and alternatives to the procedure were explained to the patient, and informed written consent was obtained. The L4-5 level was localized using fluoroscopic guidance. The skin was prepped and draped in a sterile fashion. 1% lidocaine was used as a local anesthetic. Using fluoroscopic guidance a 22 gauge spinal needle was inserted and advanced into the thecal sac. 10 cc of Isovue-M 300 was injected. FINDINGS: There is good opacification of the cervical upper thoracic canal. 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 Similarly on the left the 5th lumbar root sleeve and the 6th lumbar root sleeve appear compressed. There is ventral extradural indentation on the thecal sac on the lateral radiograph at C3-4, C4-5 and C5-6. 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 Similarly on the left the 5th lumbar root sleeve and the 6th lumbar root sleeve appear compressed. There is ventral extradural indentation on the thecal sac on the lateral radiograph at C3-4, C4-5 and C5-6. 0.6 minutes of fluoroscopy time was utilized for this procedure. <Electronically signed by Willis Lancaster > 09/06/20 1612 <Electronically signed by Amarjit Sahni > 09/06/20 [id number]
--- NOTE | 2020-09-06 17:08 | REP ---
INDICATION: LUMBAR FUSION, LUMBAR RADICULITIS FILE RM. COMPARISON: None. TECHNIQUE: The procedure was performed under the personal supervision of Dr. Sahni. The risks, benefits and alternatives to the procedure were explained to the patient, and informed written consent was obtained. The L4-5 disc space was localized using fluoroscopic guidance. The skin was prepped and draped in a sterile fashion. 1% lidocaine was used as local anesthetic. Using fluoroscopic guidance a 22 gauge spinal needle was inserted and advanced into the thecal sac. 10 cc of Isovue-M 300 was injected. FINDINGS: The patient is status post trans pedicle screw dorsal kasia fixation at L3 through S1 bilaterally. There are intervertebral disc spacers at the L3-4 L4-5 and L5-S1 levels. Lumbar myelographic spot images demonstrate disc space narrowing at L3-4 and L4-5. At L3-4 there is indentation of the ventral margin of the thecal sac due to posterior osteophytic ridging and disc bulging. There is no evidence of spinal stenosis. The lumbar nerve roots are symmetrically opacified at each level. No evidence of focal disc protrusion. IMPRESSION: Findings as described above. 0.6 minutes of fluoroscopy time was utilized for this procedure. <Electronically signed by Willis Lancaster > 09/06/20 1616 <Electronically signed by Amarjit Sahni > 09/06/20 2732
== END ==
LOC: M IRPRO 07:47
PROVIDERS: ATTEND Physician Assistant Surgical
DX: M54.16 Radiculopathy, lumbar region (principal); M47.812 Spondylosis without myelopathy or radiculopathy, cervical region; M48.02 Spinal stenosis, cervical region
CPT/HCPCS: 62305; 72125; 72131; Q9967

== ENCOUNTER → 2020-09-07 | Outpatient (CLI) | payer OTHER ==
[~2020-09-07] MED LIST changes: -ISOVUE-M 300 61% 15ML VIAL As Ordered ONE; -LIDOCAINE 1% MDV 20ML VIAL As Ordered ONE
--- NOTE | 2020-09-15 02:43 | ECWPNPC ---
PATIENT NAME: JAMES GRESHAM : 1960 GENDER: FEMALE VISIT DATE: 09/07/2020 DISCHARGE DATE: 09/07/20 1604 VISIT LOCKED DATE TIME: PHYSICIAN: KATJA RODRIGUEZ MD PHYSICIAN PAGER NO: ACTIVE RESOURCE: KATJA RODRIGUEZ MD REASON FOR APPOINTMENT 1. POST PROCEDURE FOLLOW UP HISTORY OF PRESENT ILLNESS GENERAL: 59-YEAR-OLD FEMALE PATIENT WITH A HISTORY OF CHRONIC LOW BACK AND MAINLY RIGHT LEG PAIN. THE PATIENT DESCRIBES THE PAIN ACHING, THROBBING AND BURNING, OCCASIONALLY STABBING WITH A PAIN SCORE RANGING FROM 6-9/10 DEPENDING ON PHYSICAL ACTIVITY IN THE BACK AND MAINLY THE RIGHT LEG BUT NOW SHE IS HAVING PAIN IN THE LEFT LEG WELL. THE PATIENT HAD A RIGHT TRANSFORAMINAL L4 AND L5 A FEW WEEKS AGO. SHE HAS BEEN DISCUSSING WITH A SURGEON ABOUT A SURGERY TO REMOVE A SCREW IN HER BACK. THE PATIENT IS USING OXYCODONE UP TO 3 TABLETS PER DAY. PATIENT DENIES UNEXPLAINABLE WEIGHT LOSS, FEVER, CHILLS, NEW CHANGES ON HER URINARY OR BOWEL CONTROL. FALL RISK SCREENING: SCREENING :TWO OR MORE FALLS WITHOUT INJURY IN THE PAST YEAR PATIENT REPORTS FALLS, WHERE PATIENT "LOSSES HER BALANCE" BUT DENIES INJURY OR MEDICAL ATTENTION. PAIN SCREENING: PATIENT HAS A COMPLAINT OF ACUTE OR CHRONIC PAIN :YES LOCATION OF PAIN:LOW BACK, LEG(S) INTENSITY OF PAIN (SCALE OF 1 TO 10):9 WHAT DOES YOUR PAIN FEEL LIKE:ACHING, THROBBING, BURNING, CONTINOUS DURATION:CONTINOUS, AWAKENS FROM SLEEP PAIN IS INCREASED BY:OTHERS PLAN/GOALS/TREATMENT/INTERVENTION/FOLLOW UP:SEE PLAN NURSING NOTE: -. PAIN CENTER INTAKE QUESTIONS: DO YOU HAVE A HISTORY OF MRSA? :NO DO YOU TAKE A BLOOD THINNERS? :NO DO YOU HAVE ANY BLEEDING DISORDERS? :NO ANY NEW NUMBNESS OR WEAKNESS IN YOUR LEGS OR ARMS? :NO ANY PACEMAKER,DEFIBRILLATOR, OR DORSAL COLUMN STIMULATOR? :NO DO YOU HAVE ANY RASHES OR OPEN SORES? :NO ARE YOU ALLERGIC TO IV DYE? :NO ARE YOU DIABETIC? :NO ANY NEW PROBLEMS WITH YOUR MEDICATIONS? :NO HAVE YOU RECEIVED A VACCINE IN THE PAST 30 DAYS? :NO DO YOU PLAN TO RECEIVE A VACCINE IN THE NEXT 21 DAYS? :NO YES PATIENT WOULD LIKE TO GET FLU VACCINE PATIENT ADVISED TO WAIT UNTIL AT LEAST 09/13/20. DO YOU NEED ANY PRESCRIPTION? :NO DO YOU TAKE ANY IMMUNOSUPPRESSIVE MEDICATIONS? :NO IS THERE A CHANCE YOU COULD BE ? :NO ARE YOU BREAST FEEDING? :NO CURRENT MEDICATIONS TAKING FLUTICASONE PROPIONATE 50 MCG/ACT SUSPENSION 1 SPRAY IN EACH NOSTRIL NASALLY TWICE A DAY TAKING ACYCLOVIR 800 MG TABLET 1 TABLET NEEDED ORALLY TWICE A DAY TAKING TRAZODONE HCL 50 MG TABLET 0.5 - 1 TABLET AT BEDTIME NEEDED ORALLY ONCE A DAY TAKING VENLAFAXINE HCL ER 150 CAPSULE 1 CAPSULE WITH FOOD ORALLY ONCE A DAY TAKING VENLAFAXINE HCL ER 75 MG CAPSULE EXTENDED RELEASE 24 HOUR 1 CAPSULE WITH FOOD ORALLY ONCE A DAY TAKING PROGESTERONE MICRONIZED 100 MG CAPSULE 1 CAPSULE AT BEDTIME ORALLY ONCE A DAY TAKING MORPHINE SULFATE 15 MG TABLET 1 TABLET NEEDED ORALLY EVERY 4 HRS TAKING DIAZEPAM 5 MG TABLET 1 TABLET NEEDED ORALLY BID; MDD _#2 TAKING OMEPRAZOLE 20 MG CAPSULE DELAYED RELEASE 1 CAPSULE 30 MINUTES BEFORE MORNING MEAL ORALLY ONCE A DAY TAKING TIZANIDINE HCL 4 MG TABLET 1 TABLET NEEDED ORALLY FOR SPASMS AND PAIN BEFORE BEDTIME MAY REPEAT IN 5 HRS MDD2 TAKING LYRICA 100 MG CAPSULE 1 CAPSULE ORALLY FOR PAIN TWICE DAILY TAKING OXYCODONE-ACETAMINOPHEN 10-325 MG TABLET 1 TABLET NEEDED ORALLY FOR PAIN EVERY 8 HRS MDD3 NOT-TAKING MELOXICAM 7.5 MG TABLET 1 TABLET ORALLY ONCE A DAY NOT-TAKING IBUPROFEN 800 MG TABLET 1 TABLET ORALLY TWICE TIMES A DAY, NOTES: NEEDS REFILL NOT-TAKING ESTRACE 0.5 MG TABLET 1 TABLET ORALLY DAILY NOT-TAKING TIZANIDINE HCL 4 MG TABLET 1 TABLET NEEDED ORALLY BEFORE BEDTIME MEDICATION LIST REVIEWED AND RECONCILED WITH THE PATIENT PAST MEDICAL HISTORY ANXIETY DEPRESSION CHRONIC PAIN IN NECK AND BACK ASCVD 10 YEAR RISK 3.1% IN 11/2019 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 SURGICAL HISTORY RIGHT SHOULDER FOR ROTATOR CUFF LEFT SHOULDER FOR BONE SPURS SURGERIES TO FEET FOR BONE SPURS ON TOES LAPAROSCOPY UTERINE BIOPSY-DODARD BONE SPUR LEFT SECOND TOE 01/20 BACK SURGERY 11/18/18 CYSTOSCOPY 02/2019 COLONOSCOPY - ADENOMATOUS POLYP/TUBULAR ADENOMA REMOVED, DR. HOLDER, REPEAT IN 5 YEARS 05/2019 BACK FUSION 11/2019 MYLEOGRAM 09/06/20 FAMILY HISTORY FATHER: , LUNG CANCER MOTHER: , LUNG CANCER; DEPRESSION SIBLINGS: ALIVE, SISTER HAD A PITUITARY TUMOR AND A STROKE HAS PASSED. 1 BROTHER(S) , 2 SISTER(S) . DENIES FAMILY HISTORY OF BREAST, COLON, OR OVARIAN CANCER. \\\\\\\\\\\\\\\\\\\\\\\\\\\\\\\\NNO FAMILY HX OF MELANOMA OR PANCREATIC CANCER. DENIES FAMILY HISTORY OF UROLOGICAL DX. SOCIAL HISTORY GENERAL: TOBACCO USE ARE YOU A:FORMER SMOKER SMOKED ABOUT 1/2 PPD STARTED SMOKING 16YRS OLD ONLY SMOKED WHILE DRINKING AND QUIT A COUPLE YEARS AGO HOW LONG HAS IT BEEN SINCE YOU LAST SMOKED?1-5 YEARS LATEX QUESTIONNAIRE LATEX ALLERGY : HAVE YOU EVER DEVELOPED ANY TYPE OF REACTION AFTER HANDLING LATEX PRODUCTS SUCH RUBBER GLOVES, CONDOMS, DIAPHRAGMS, BALLOONS, SOCKS, OR UNDERWEAR?NO LATEX ALLERGY : HAVE YOU EVER DEVELOPED ANY TYPE OF REACTION DURING OR AFTER DENTAL APPOINTMENT, VAGINAL/RECTAL EXAMINATION, SURGICAL PROCEDURE, OR ANY OTHER EXPOSURE?NO LATEX RISK : HAVE YOU EVER HAD ANY DIFFICULTY BREATHING OR HIVES AFTER EATING OR HANDLING ANY FRUITS, OR VEGETABLES; SUCH KIWI, BANANAS, STONE FRUITS, OR CHESTNUTSNO LATEX RISK : DO YOU HAVE A PREVIOUS PERSONAL HISTORY OF MORE THAN NINE SURGERIES, SPINA BIFIDA, OR REPEATED CATHERIZATIONS? NO LATEX RISK : ARE YOU FREQUENTLY EXPOSED TO LATEX PRODUCTS IN YOUR OCCUPATION?YES DATE ASKED : 09/07/2020 ALCOHOL SCREENING DID YOU HAVE A DRINK CONTAINING ALCOHOL IN THE PAST YEAR?YES HOW OFTEN DID YOU HAVE SIX OR MORE DRINKS ON ONE OCCASION IN THE PAST YEAR?NEVER (0 POINTS) HOW MANY DRINKS DID YOU HAVE ON A TYPICAL DAY WHEN YOU WERE DRINKING IN THE PAST YEAR?1 OR 2 (0 POINTS) HOW OFTEN DID YOU HAVE A DRINK CONTAINING ALCOHOL IN THE PAST YEAR?TWO TO FOUR TIMES A MONTH (2 POINTS) POINTS2 INTERPRETATIONNEGATIVE RECREATIONAL DRUG USE DRUG USE?NO CAFFEINE CAFFEINE USE?YES ICED TEA = 2 LARGE CUPS PER DAY SEXUAL HX HAD SEX IN THE LAST 12 MONTHS (VAGINAL, ORAL, OR ANAL)?NO LMP:POST MENOPAUSE HAVE YOU EVER HAD AN STD?NO HIV / HEP-C SCREENING HIV TEST OFFERED TO PATIENT:YES DATE OFFERED:10/22/2019 TEST ACCEPTED:NO HEP-C TEST OFFERED TO PATIENT:YES DATE OFFERED:02/07/2017 REASON:PATIENT DECLINED TEST ACCEPTED:NO REASON:PATIENT DECLINED BROCHURE PROVIDED TO PATIENTNO JAIN [id number] CONGREGATIONAL NO GNOSTICIST BELIEFS THAT WOULD IMPACT HEALTH CARE. LANGUAGE LANGUAGES SPOKEN:IVORIAN EDUCATION LEVEL OF EDUCATION:FINISHED COLLEGE LEARNING BARRIERS / SPECIAL NEEDS CHANGE FROM LAST VISIT?NO BARRIERS TO LEARNING?NO HEARING IMPAIRED?NO VISION IMPAIRED?YES COGNITIVELY IMPAIRED?NO :CORRECTIVE LENSES READINESS TO LEARN?YES LEARNING PREFERENCES?NO LEARNING CAPABILITIES PRESENT?YES EMOTIONAL BARRIERS?NO SPECIAL DEVICES?NO TELEPHONE SEX WORKER NEEDED?NO DOMESTIC VIOLENCE DO YOU FEEL SAFE IN YOUR ENVIRONMENT?YES OCCUPATION: UNEMPLOYED. DIET: REGULAR. EXERCISE: NO REGULAR EXERCISE. MARITAL STATUS: . OTHERS AT HOME: FRIEND STAYING WITH JAMES. PAIN CLINIC PFS, CLERGY, PUBLIC HEALTH REFERRALS PFS REFERRAL NEEDED?NO CLERGY REFERRAL NEEDED?NO PUBLIC HEALTH REFERRAL NEEDED?NO WAS THE PROVIDER NOTIFIED OF ANY PERTINENT INFO?YES HAS THE PATIENT BEEN EDUCATED REGARDING HIS/HER PLAN OF CARE?YES HAS THE PATIENT BEEN EDUCATED REGARDING PAIN, THE RISK FOR PAIN, THE IMPORTANCE OF EFFECTIVE PAIN MANAGEMENT, AND THE PAIN ASSESSMENT PROCESS?YES ADVANCE DIRECTIVE ADVANCE DIRECTIVE DISCUSSED WITH PATIENT:YES PT STATES THAT SHE DOES NOT HAVE HCP AT THIS TIME. HOSPITALIZATION/MAJOR DIAGNOSTIC PROCEDURE FOR SURGERIES REVIEW OF SYSTEMS CONSTITUTIONAL: ANY RECENT FEVER NO . CHILLS NO . WEIGHT CHANGE OF UNKNOWN REASONS NO . GASTROENTEROLOGY: NEW UNEXPLAINABLE CHANGES IN BOWEL CONTROL NO . CONSTIPATION NO . GENITOURINARY: ANY NEW CHANGE IN BLADDER CONTROL? NO . NEUROLOGY: NEW ONSET DIZZINESS OR NEUROLOGICAL CHANGES NOT MENTIONED NO . NEW NUMBNESS OR PAIN PATTERNS NOT MENTIONED AND PERTINENT TO TODAY'S VISIT NO . CARDIOLOGY: NEW CHEST PRESSURE NO . NEW CHEST PAIN NO . RESPIRATORY: UNEXPLAINABLE COUGH NO . NEW SHORTNESS OF BREATH NO . VITAL SIGNS WT 161 LBS, HT 62 IN, BMI 29.44 INDEX, BP 121/64 MM HG, HR 71 /MIN, RR 18 /MIN, TEMP 96.5 F, OXYGEN SAT % 97%, NA INITIALS SC 15:24. EXAMINATION GENERAL EXAMINATION: THE PATIENT IS ALERT, ORIENTED TIMES THREE AND COOPERATIVE. HEART SHOWS REGULAR RHYTHM, NO MURMURS AND NO GALLOPS. LUNGS ARE CLEAR TO AUSCULTATION. THE RIGHT LEG IS WEAKER THAN THE LEFT LEG ON FLEXION AND EXTENSION. STRAIGHT LEG RAISE IS POSITIVE ON THE RIGHT FOR RADICULOPATHY AT 45 DEGREES. LUMBAR SPINE MRI DATED 03/16/2020 SHOWS POST LAMINECTOMY SYNDROME. ASSESSMENTS OTHER CHRONIC PAIN - G89.29 (PRIMARY) LUMBAR POST-LAMINECTOMY SYNDROME - M96.1 TREATMENT OTHER CHRONIC PAIN CONTINUE LYRICA CAPSULE, 100 MG, 1 CAPSULE, ORALLY FOR PAIN, TID MDD3, 30 DAYS, 90, REFILLS 0 PAIN PROCEDURE LOGDATE OF [id number]/19/20PROCEDURE:RIGHT TRANSFORAMINAL L4, [id number] OF PRE SEDATEVERSED 2MG, FENTANYL 100MCGRESULT:PATIENT STATES ONLY 2 DAYS OF RELIEF LUMBAR POST-LAMINECTOMY SYNDROME CLINICAL NOTES: I DISCUSSED WITH MS. GRESHAM THE USE OF THE MEDICATIONS. SHE STATES THAT THE OXYCODONE DOES NOT HELP CONTROL THE PAIN DURING THE DAY SO WE DISCUSSED ALTERNATIVES. SO I WILL INCREASE THE LYRICA 100 MG 3 TABLETS A DAY INSTEAD OF 2 TABLETS A DAY. THE PATIENT REPORTS THAT THE MEDICATION DOES MAKE HER A LITTLE SLEEPY. WE WILL ALSO TRY TO CHANGE SOME OF THE OXYCODONE FOR A LONG ACTING OXYCODONE. I WILL GIVE HER A 5 DAY SUPPLY OF OXYCONTIN 20 MG. THE PATIENT UNDERSTANDS AND AGREES WITH THE PLAN. I, MALIK CLARK, DOCUMENTED THE ABOVE INFORMATION ACTING A SCRIBE FOR DR. RODRIGUEZ. I HAVE REVIEWED THE ABOVE DOCUMENT, WRITTEN BY MALIK CLARK, SLUG PRESS OPERATOR, AND I VERIFY THAT IT IS ACCURATE. PROCEDURE CODES FA211 ESTABILISHED PATIENT [facility] CHARGE 60631 OFFICE/OUTPATIENT VISIT EST DISPOSITION & COMMUNICATION FOLLOW UP FOLLOW UP WITH DR. Fairbanks ON SundaySEP 17 AT 3:00 (REASON: MED MANAGEMENT) ELECTRONICALLY SIGNED BY KATJA RODRIGUEZ MD, ON 09/14/2020 AT 04:59 PM EST DISCLAIMER : THIS IS A VISIT SUMMARY EXTRACTED FROM THE [employer] CHART. IT IS NOT A COPY OF THE [email or web address] PROGRESS NOTE. MTDD
== END ==
LOC: M PAIN 15:00
PROVIDERS: ATTEND Anesthesiology
DX: G89.29 Other chronic pain (principal); M96.1 Postlaminectomy syndrome, not elsewhere classified; F41.9 Anxiety disorder, unspecified; F32.9 Major depressive disorder, single episode, unspecified; Z85.828 Personal history of other malignant neoplasm of skin; Z87.891 Personal history of nicotine dependence; Z79.891 Long term (current) use of opiate analgesic; Z79.899 Other long term (current) drug therapy

== ENCOUNTER → 2020-10-11 | Outpatient (CLI) | payer OTHER ==
--- NOTE | 2020-10-14 02:09 | ECWPNPC ---
PATIENT NAME: JAMES GRESHAM : 1960 GENDER: FEMALE VISIT DATE: 10/11/2020 DISCHARGE DATE: 10/11/201755 VISIT LOCKED DATE TIME: PHYSICIAN: KATJA RODRIGUEZ MD PHYSICIAN PAGER NO: ACTIVE RESOURCE: KATJA RODRIGUEZ MD REASON FOR APPOINTMENT 1. MED MANAGEMENT HISTORY OF PRESENT ILLNESS GENERAL: 59-YEAR-OLD FEMALE PATIENT WITH A HISTORY OF CHRONIC LOW BACK AND MAINLY RIGHT LEG PAIN. THE PATIENT DESCRIBES THE PAIN SEVERE, BURNING AND OCCASIONALLY STABBING WITH A PAIN SCORE RANGING FROM 6-10/10 DEPENDING ON PHYSICAL ACTIVITY IN THE BACK TO MAINLY THE RIGHT LEG. THE PATIENT WAS SUPPOSE TO HAVE WHAT SEEMS TO BE A SIMPLE SURGERY BUT AFTER FURTHER STUDIES, IT SEEMS TO BE THAT THE CAGE IS LOOSE AND THE SCREW IS LOOSE AND IT SEEMS THAT IT NEEDS TO BE A MORE EXTENSIVE PROCEDURE. THE PATIENT IS IN THE MIDDLE OF MOVING AND IT IS EXTREMELY CHALLENGING FOR HER TO MOVE AND DO HER ACTIVITIES DUE TO THIS PAIN. AT SOME POINT, WE WERE PLANNING ON DOING A SPINAL COLUMN STIMULATOR TRIAL BUT WE PUT A HOLD ON THAT BECAUSE THE PATIENT MAY GET BETTER WITH THE SURGERY. PATIENT DENIES UNEXPLAINABLE WEIGHT LOSS, FEVER, CHILLS, NEW CHANGES ON URINARY OR BOWEL CONTROL. FALL RISK SCREENING: SCREENING :NO FALLS REPORTED IN THE LAST YEAR PAIN SCREENING: PATIENT HAS A COMPLAINT OF ACUTE OR CHRONIC PAIN :NO NURSING NOTE: -. PAIN CENTER INTAKE QUESTIONS: DO YOU HAVE A HISTORY OF MRSA? :NO DO YOU TAKE A BLOOD THINNERS? :NO DO YOU HAVE ANY BLEEDING DISORDERS? :NO ANY NEW NUMBNESS OR WEAKNESS IN YOUR LEGS OR ARMS? :NO ANY PACEMAKER,DEFIBRILLATOR, OR DORSAL COLUMN STIMULATOR? :NO DO YOU HAVE ANY RASHES OR OPEN SORES? :NO ARE YOU ALLERGIC TO IV DYE? :NO ARE YOU DIABETIC? :NO ANY NEW PROBLEMS WITH YOUR MEDICATIONS? :NO HAVE YOU RECEIVED A VACCINE IN THE PAST 30 DAYS? :NO DO YOU PLAN TO RECEIVE A VACCINE IN THE NEXT 21 DAYS? :NO DO YOU NEED ANY PRESCRIPTION? :NO DO YOU TAKE ANY IMMUNOSUPPRESSIVE MEDICATIONS? :NO IS THERE A CHANCE YOU COULD BE ? :NO ARE YOU BREAST FEEDING? :NO CURRENT MEDICATIONS TAKING FLUTICASONE PROPIONATE 50 MCG/ACT SUSPENSION 1 SPRAY IN EACH NOSTRIL NASALLY TWICE A DAY TAKING ACYCLOVIR 800 MG TABLET 1 TABLET NEEDED ORALLY TWICE A DAY TAKING TRAZODONE HCL 50 MG TABLET 0.5 - 1 TABLET AT BEDTIME NEEDED ORALLY ONCE A DAY TAKING VENLAFAXINE HCL ER 150 CAPSULE 1 CAPSULE WITH FOOD ORALLY ONCE A DAY TAKING VENLAFAXINE HCL ER 75 MG CAPSULE EXTENDED RELEASE 24 HOUR 1 CAPSULE WITH FOOD ORALLY ONCE A DAY TAKING PROGESTERONE MICRONIZED 100 MG CAPSULE 1 CAPSULE AT BEDTIME ORALLY ONCE A DAY TAKING DIAZEPAM 5 MG TABLET 1 TABLET NEEDED ORALLY BID; MDD _#2 TAKING OMEPRAZOLE 20 MG CAPSULE DELAYED RELEASE 1 CAPSULE 30 MINUTES BEFORE MORNING MEAL ORALLY ONCE A DAY TAKING TIZANIDINE HCL 4 MG TABLET 1 TABLET NEEDED ORALLY FOR SPASMS AND PAIN BEFORE BEDTIME MAY REPEAT IN 5 HRS MDD2 TAKING LYRICA 100 MG CAPSULE 1 CAPSULE ORALLY FOR PAIN TID MDD3 TAKING OXYCODONE-ACETAMINOPHEN 10-325 MG TABLET 1 TABLET NEEDED ORALLY FOR PAIN EVERY 8 HRS MDD3 NOT-TAKING MORPHINE SULFATE 15 MG TABLET 1 TABLET NEEDED ORALLY EVERY 4 HRS NOT-TAKING OXYCONTIN 20 MG TABLET ER 12 HOUR ABUSE-DETERRENT 1 TABLET ORALLY EVERY 12 HRS MDD1 NOT-TAKING MELOXICAM 7.5 MG TABLET 1 TABLET ORALLY ONCE A DAY NOT-TAKING IBUPROFEN 800 MG TABLET 1 TABLET ORALLY TWICE TIMES A DAY, NOTES: NEEDS REFILL NOT-TAKING ESTRACE 0.5 MG TABLET 1 TABLET ORALLY DAILY NOT-TAKING TIZANIDINE HCL 4 MG TABLET 1 TABLET NEEDED ORALLY BEFORE BEDTIME MEDICATION LIST REVIEWED AND RECONCILED WITH THE PATIENT PAST MEDICAL HISTORY ANXIETY DEPRESSION CHRONIC PAIN IN NECK AND BACK ASCVD 10 YEAR RISK 3.1% IN 11/2019 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 SURGICAL HISTORY RIGHT SHOULDER FOR ROTATOR CUFF LEFT SHOULDER FOR BONE SPURS SURGERIES TO FEET FOR BONE SPURS ON TOES LAPAROSCOPY UTERINE BIOPSY-DODARD BONE SPUR LEFT SECOND TOE 01/20 BACK SURGERY 11/18/18 CYSTOSCOPY 02/2019 COLONOSCOPY - ADENOMATOUS POLYP/TUBULAR ADENOMA REMOVED, DR. HOLDER, REPEAT IN 5 YEARS 05/2019 BACK FUSION 11/2019 MYLEOGRAM 09/06/20 FAMILY HISTORY FATHER: , LUNG CANCER MOTHER: , LUNG CANCER; DEPRESSION SIBLINGS: ALIVE, SISTER HAD A PITUITARY TUMOR AND A STROKE HAS PASSED. 1 BROTHER(S) , 2 SISTER(S) . DENIES FAMILY HISTORY OF BREAST, COLON, OR OVARIAN CANCER. \\\\\\\\\\\\\\\\NNO FAMILY HX OF MELANOMA OR PANCREATIC CANCER. DENIES FAMILY HISTORY OF UROLOGICAL DX. SOCIAL HISTORY GENERAL: TOBACCO USE ARE YOU A:FORMER SMOKER SMOKED ABOUT 1/2 PPD STARTED SMOKING 16YRS OLD ONLY SMOKED WHILE DRINKING AND QUIT A COUPLE YEARS AGO HOW LONG HAS IT BEEN SINCE YOU LAST SMOKED?1-5 YEARS LATEX QUESTIONNAIRE LATEX ALLERGY : HAVE YOU EVER DEVELOPED ANY TYPE OF REACTION AFTER HANDLING LATEX PRODUCTS SUCH RUBBER GLOVES, CONDOMS, DIAPHRAGMS, BALLOONS, SOCKS, OR UNDERWEAR?NO LATEX ALLERGY : HAVE YOU EVER DEVELOPED ANY TYPE OF REACTION DURING OR AFTER DENTAL APPOINTMENT, VAGINAL/RECTAL EXAMINATION, SURGICAL PROCEDURE, OR ANY OTHER EXPOSURE?NO DATE ASKED : 09/07/2020 LATEX RISK : HAVE YOU EVER HAD ANY DIFFICULTY BREATHING OR HIVES AFTER EATING OR HANDLING ANY FRUITS, OR VEGETABLES; SUCH KIWI, BANANAS, STONE FRUITS, OR CHESTNUTSNO LATEX RISK : DO YOU HAVE A PREVIOUS PERSONAL HISTORY OF MORE THAN NINE SURGERIES, SPINA BIFIDA, OR REPEATED CATHERIZATIONS? NO LATEX RISK : ARE YOU FREQUENTLY EXPOSED TO LATEX PRODUCTS IN YOUR OCCUPATION?YES ALCOHOL SCREENING DID YOU HAVE A DRINK CONTAINING ALCOHOL IN THE PAST YEAR?YES HOW OFTEN DID YOU HAVE SIX OR MORE DRINKS ON ONE OCCASION IN THE PAST YEAR?NEVER (0 POINTS) HOW MANY DRINKS DID YOU HAVE ON A TYPICAL DAY WHEN YOU WERE DRINKING IN THE PAST YEAR?1 OR 2 (0 POINTS) HOW OFTEN DID YOU HAVE A DRINK CONTAINING ALCOHOL IN THE PAST YEAR?TWO TO FOUR TIMES A MONTH (2 POINTS) POINTS2 INTERPRETATIONNEGATIVE RECREATIONAL DRUG USE DRUG USE?NO CAFFEINE CAFFEINE USE?YES ICED TEA = 2 LARGE CUPS PER DAY SEXUAL HX HAD SEX IN THE LAST 12 MONTHS (VAGINAL, ORAL, OR ANAL)?NO LMP:POST MENOPAUSE HAVE YOU EVER HAD AN STD?NO HIV / HEP-C SCREENING HIV TEST OFFERED TO PATIENT:YES DATE OFFERED:10/22/2019 TEST ACCEPTED:NO HEP-C TEST OFFERED TO PATIENT:YES DATE OFFERED:02/07/2017 REASON:PATIENT DECLINED TEST ACCEPTED:NO REASON:PATIENT DECLINED BROCHURE PROVIDED TO PATIENTNO SABIANISM [id number] JEWISH NO SYNAGOGUE BELIEFS THAT WOULD IMPACT HEALTH CARE. LANGUAGE LANGUAGES SPOKEN:URDU EDUCATION LEVEL OF EDUCATION:FINISHED COLLEGE LEARNING BARRIERS / SPECIAL NEEDS CHANGE FROM LAST VISIT?NO BARRIERS TO LEARNING?NO HEARING IMPAIRED?NO VISION IMPAIRED?YES COGNITIVELY IMPAIRED?NO :CORRECTIVE LENSES READINESS TO LEARN?YES LEARNING PREFERENCES?NO LEARNING CAPABILITIES PRESENT?YES EMOTIONAL BARRIERS?NO SPECIAL DEVICES?NO ENGRAVER OPTICAL FRAMES NEEDED?NO DOMESTIC VIOLENCE DO YOU FEEL SAFE IN YOUR ENVIRONMENT?YES OCCUPATION: UNEMPLOYED. DIET: REGULAR. EXERCISE: NO REGULAR EXERCISE. MARITAL STATUS: . OTHERS AT HOME: FRIEND STAYING WITH JAMES. PAIN CLINIC PFS, CLERGY, PUBLIC HEALTH REFERRALS PFS REFERRAL NEEDED?NO CLERGY REFERRAL NEEDED?NO PUBLIC HEALTH REFERRAL NEEDED?NO WAS THE PROVIDER NOTIFIED OF ANY PERTINENT INFO?YES HAS THE PATIENT BEEN EDUCATED REGARDING HIS/HER PLAN OF CARE?YES HAS THE PATIENT BEEN EDUCATED REGARDING PAIN, THE RISK FOR PAIN, THE IMPORTANCE OF EFFECTIVE PAIN MANAGEMENT, AND THE PAIN ASSESSMENT PROCESS?YES ADVANCE DIRECTIVE ADVANCE DIRECTIVE DISCUSSED WITH PATIENT:YES PT STATES THAT SHE DOES NOT HAVE HCP AT THIS TIME. HOSPITALIZATION/MAJOR DIAGNOSTIC PROCEDURE FOR SURGERIES REVIEW OF SYSTEMS CONSTITUTIONAL: ANY RECENT FEVER NO . CHILLS NO . WEIGHT CHANGE OF UNKNOWN REASONS NO . GASTROENTEROLOGY: NEW UNEXPLAINABLE CHANGES IN BOWEL CONTROL NO . CONSTIPATION NO . GENITOURINARY: ANY NEW CHANGE IN BLADDER CONTROL? NO . NEUROLOGY: NEW ONSET DIZZINESS OR NEUROLOGICAL CHANGES NOT MENTIONED NO . NEW NUMBNESS OR PAIN PATTERNS NOT MENTIONED AND PERTINENT TO TODAY'S VISIT NO . CARDIOLOGY: NEW CHEST PRESSURE NO . NEW CHEST PAIN NO . RESPIRATORY: UNEXPLAINABLE COUGH NO . NEW SHORTNESS OF BREATH NO . VITAL SIGNS WT 158 LBS, HT 62 IN, BMI 28.90 INDEX, BP 177/82 MM HG, HR 71 /MIN, RR 18 /MIN, TEMP 96.1 F, OXYGEN SAT % 98%, SAFE IN ENV? (Y/N) YES, NA INITIALS SC 15:12. EXAMINATION GENERAL EXAMINATION: THE PATIENT IS ALERT, ORIENTED TIMES THREE AND COOPERATIVE. HEART SHOWS REGULAR RHYTHM, NO MURMURS AND NO GALLOPS. LUNGS ARE CLEAR TO AUSCULTATION., THE RIGHT LEG IS WEAKER THAN THE LEFT LEG ON FLEXION AND EXTENSION. STRAIGHT LEG RAISE IS POSITIVE FOR RADICULOPATHY ON THE RIGHT AT [address] AND CERVICAL [address] MYELOGRAM DATED 09/06/2020 SHOWS FOR CERVICAL FINDINGS OVER THE NECK AND MULTIPLE NERVE ROOT COMPRESSION AND THE LOWER SPINE IS SHOWING SOME COMPRESSION OF NERVE ROOTS. ASSESSMENTS LUMBAR POST-LAMINECTOMY SYNDROME - M96.1 (PRIMARY) CERVICALGIA - M54.2 TREATMENT LUMBAR POST-LAMINECTOMY SYNDROME CONTINUE LYRICA CAPSULE, 100 MG, 1 CAPSULE, ORALLY FOR PAIN, TID MDD3, 30 DAYS, 90, REFILLS 0 CONTINUE TIZANIDINE HCL TABLET, 4 MG, 1 TABLET NEEDED, ORALLY FOR SPASMS AND PAIN, BEFORE BEDTIME MAY REPEAT IN 5 HRS MDD2, 30 DAYS, 50, REFILLS 1 CONTINUE OXYCODONE-ACETAMINOPHEN TABLET, 10-325 MG, 1 TABLET NEEDED, ORALLY FOR PAIN, EVERY 8 HRS MDD3, 30 DAYS, 90, REFILLS 0 CLINICAL NOTES: I DISCUSSED ALTERNATIVES WITH MS. GRESHAM. I WILL DO A URINE TOX ON THE PATIENT. I WILL REFILL HER MEDICATIONS. I REVIEWED THE ISTOP, REFERENCE NUMBER [id number]. I REVIEWED THE ORAL TOX DONE 07/2020. I REMINDED THE PATIENT THAT SHE HAS TO BE CAREFUL WITH THIS MEDICATION. SHE CANNOT MIX IT WITH WINE. SHE KNOWS THAT THIS MEDIATION CAN CAUSE ADDICTION. THE PATIENT REPORTS UNDERSTANDING AND AGREES WITH THE PLAN. I, MALIK CLARK, DOCUMENTED THE ABOVE INFORMATION ACTING A SCRIBE FOR DR. RODRIGUEZ. I HAVE REVIEWED THE ABOVE DOCUMENT, WRITTEN BY MALIK CLARK, ASSOCIATE QUALITY ENGINEER, AND I VERIFY THAT IT IS ACCURATE. PROCEDURE CODES FA211 ESTABILISHED PATIENT [facility] CHARGE 20025 OFFICE/OUTPATIENT VISIT EST DISPOSITION & COMMUNICATION FOLLOW UP FOLLOW UP WITH DR. Fairbanks IN 1 MONTH (REASON: MED MANAGEMENT) ELECTRONICALLY SIGNED BY KATJA RODRIGUEZ MD, MD ON 10/13/2020 AT 11:10 AM EST DISCLAIMER : THIS IS A VISIT SUMMARY EXTRACTED FROM THE [email or web address] CHART. IT IS NOT A COPY OF THE [employer] PROGRESS NOTE. MTDD
== END ==
LOC: M PAIN 15:15
PROVIDERS: ATTEND Anesthesiology
DX: M96.1 Postlaminectomy syndrome, not elsewhere classified (principal); M54.2 Cervicalgia; F41.9 Anxiety disorder, unspecified; F32.9 Major depressive disorder, single episode, unspecified; Z85.828 Personal history of other malignant neoplasm of skin; Z87.891 Personal history of nicotine dependence; Z79.891 Long term (current) use of opiate analgesic; Z79.899 Other long term (current) drug therapy

== ENCOUNTER → 2020-12-01 | Outpatient (CLI) | payer OTHER ==
--- NOTE | 2020-12-06 23:48 | ECWPNPC ---
PATIENT NAME: JAMES GRESHAM : 1960 GENDER: FEMALE VISIT DATE: 12/01/2020 DISCHARGE DATE: 12/01/20 1619 VISIT LOCKED DATE TIME: PHYSICIAN: KATJA RODRIGUEZ MD PHYSICIAN PAGER NO: ACTIVE RESOURCE: KATJA RODRIGUEZ MD REASON FOR APPOINTMENT 1. BACK HISTORY OF PRESENT ILLNESS GENERAL: 60-YEAR-OLD FEMALE PATIENT WITH A HISTORY OF CHRONIC LOW BACK AND MAINLY RIGHT LEG PAIN. THE PATIENT DESCRIBES THE PAIN SERVE AND BURNING WITH A PAIN SCORE RANGING FROM 7-10/10 IN THE BACK WITH RADIATION TO MAINLY THE RIGHT LEG. THE PAIN IS ASSOCIATED WITH PHYSICAL ACTIVITIES. SHE IS REPORTING NOW PAIN TOWARDS THE LEFT LEG NOW TOO. SHE IS GOING TO HAVE A BACK SURGERY IN 2 WEEKS. SHE IS CONTINUING TO USE OXYCODONE UP TO 3 TABLETS A DAY ON A PRN BASIS TO CONTROL HER PAIN, LYRICA 100 MG 3 TABLETS PER DAY AND TIZANIDINE ON A PRN BASIS. THE PATIENT REPORTS THAT THESE MEDICATIONS HELP KEEP HER FUNCTIONAL. SHE IS LOOKING FORWARD TO THE SURGERY. FALL RISK SCREENING: SCREENING :NO FALLS REPORTED IN THE LAST YEAR PAIN SCREENING: PATIENT HAS A COMPLAINT OF ACUTE OR CHRONIC PAIN :YES LOCATION OF PAIN:RIGHT HIP INTENSITY OF PAIN (SCALE OF 1 TO 10):8 WHAT DOES YOUR PAIN FEEL LIKE:SHOOTING, SORE, STABBING DURATION:CONTINOUS PAIN IS INCREASED BY:ACTIVITIES NURSING NOTE: - -. PAIN CENTER INTAKE QUESTIONS: DO YOU HAVE A HISTORY OF MRSA? :NO DO YOU TAKE A BLOOD THINNERS? :NO DO YOU HAVE ANY BLEEDING DISORDERS? :NO ANY NEW NUMBNESS OR WEAKNESS IN YOUR LEGS OR ARMS? :NO ANY PACEMAKER,DEFIBRILLATOR, OR DORSAL COLUMN STIMULATOR? :NO DO YOU HAVE ANY RASHES OR OPEN SORES? :NO ARE YOU ALLERGIC TO IV DYE? :NO ARE YOU DIABETIC? :NO ANY NEW PROBLEMS WITH YOUR MEDICATIONS? :NO HAVE YOU RECEIVED A VACCINE IN THE PAST 30 DAYS? :NO DO YOU PLAN TO RECEIVE A VACCINE IN THE NEXT 21 DAYS? :NO DO YOU NEED ANY PRESCRIPTION? :NO DO YOU TAKE ANY IMMUNOSUPPRESSIVE MEDICATIONS? :NO IS THERE A CHANCE YOU COULD BE ? :NO ARE YOU BREAST FEEDING? :NO CURRENT MEDICATIONS TAKING LYRICA 100 MG CAPSULE 1 CAPSULE ORALLY FOR PAIN TID MDD3 TAKING TIZANIDINE HCL 4 MG TABLET 1 TABLET NEEDED ORALLY FOR SPASMS AND PAIN BEFORE BEDTIME MAY REPEAT IN 5 HRS MDD2 TAKING OXYCODONE-ACETAMINOPHEN 10-325 MG TABLET 1 TABLET NEEDED ORALLY FOR PAIN EVERY 8 HRS MDD3 TAKING ACYCLOVIR 800 MG TABLET 1 TABLET NEEDED ORALLY TWICE A DAY TAKING TRAZODONE HCL 50 MG TABLET 1 TABLET AT BEDTIME ORALLY ONCE A DAY, NOTES: ONLY NEEDS TAKING VENLAFAXINE HCL ER 150 MG CAPSULE EXTENDED RELEASE 24 HOUR 1 CAPSULE WITH FOOD ORALLY ONCE A DAY TAKING VENLAFAXINE HCL ER 75 MG CAPSULE EXTENDED RELEASE 24 HOUR 1 CAPSULE WITH FOOD ORALLY ONCE A DAY TAKING DIAZEPAM 5 MG TABLET 1 TABLET NEEDED ORALLY BID; MDD #2, NOTES: DOESNT HAVE TAKING FLUTICASONE PROPIONATE 50 MCG/ACT SUSPENSION 1 SPRAY IN EACH NOSTRIL NASALLY TWICE A DAY TAKING OMEPRAZOLE 20 MG CAPSULE DELAYED RELEASE 1 CAPSULE 30 MINUTES BEFORE MORNING MEAL ORALLY ONCE A DAY TAKING PROGESTERONE MICRONIZED 100 MG CAPSULE 1 CAPSULE AT BEDTIME ORALLY ONCE A DAY MEDICATION LIST REVIEWED AND RECONCILED WITH THE PATIENT PAST MEDICAL HISTORY ANXIETY DEPRESSION CHRONIC PAIN IN NECK AND BACK ASCVD 10 YEAR RISK 3.1% IN 11/2019 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 SURGICAL HISTORY RIGHT SHOULDER FOR ROTATOR CUFF LEFT SHOULDER FOR BONE SPURS SURGERIES TO FEET FOR BONE SPURS ON TOES LAPAROSCOPY UTERINE BIOPSY-DODARD BONE SPUR LEFT SECOND TOE 01/20 BACK SURGERY 11/18/18 CYSTOSCOPY 02/2019 COLONOSCOPY - ADENOMATOUS POLYP/TUBULAR ADENOMA REMOVED, DR. HOLDER, REPEAT IN 5 YEARS 05/2019 BACK FUSION 11/2019 MYLEOGRAM 09/06/20 FAMILY HISTORY FATHER: , LUNG CANCER MOTHER: , LUNG CANCER; DEPRESSION SIBLINGS: ALIVE, SISTER HAD A PITUITARY TUMOR AND A STROKE HAS PASSED. 1 BROTHER(S) , 2 SISTER(S) . DENIES FAMILY HISTORY OF BREAST, COLON, OR OVARIAN CANCER. \\\\\\\\\\\\\\\\NNO FAMILY HX OF MELANOMA OR PANCREATIC CANCER. DENIES FAMILY HISTORY OF UROLOGICAL DX. SOCIAL HISTORY GENERAL: TOBACCO USE ARE YOU A:FORMER SMOKER SMOKED ABOUT 1/2 PPD STARTED SMOKING 16YRS OLD ONLY SMOKED WHILE DRINKING AND QUIT A COUPLE YEARS AGO HOW LONG HAS IT BEEN SINCE YOU LAST SMOKED?1-5 YEARS LATEX QUESTIONNAIRE LATEX ALLERGY : HAVE YOU EVER DEVELOPED ANY TYPE OF REACTION AFTER HANDLING LATEX PRODUCTS SUCH RUBBER GLOVES, CONDOMS, DIAPHRAGMS, BALLOONS, SOCKS, OR UNDERWEAR?NO LATEX ALLERGY : HAVE YOU EVER DEVELOPED ANY TYPE OF REACTION DURING OR AFTER DENTAL APPOINTMENT, VAGINAL/RECTAL EXAMINATION, SURGICAL PROCEDURE, OR ANY OTHER EXPOSURE?NO DATE ASKED : 09/07/2020 LATEX RISK : HAVE YOU EVER HAD ANY DIFFICULTY BREATHING OR HIVES AFTER EATING OR HANDLING ANY FRUITS, OR VEGETABLES; SUCH KIWI, BANANAS, STONE FRUITS, OR CHESTNUTSNO LATEX RISK : DO YOU HAVE A PREVIOUS PERSONAL HISTORY OF MORE THAN NINE SURGERIES, SPINA BIFIDA, OR REPEATED CATHERIZATIONS? NO LATEX RISK : ARE YOU FREQUENTLY EXPOSED TO LATEX PRODUCTS IN YOUR OCCUPATION?YES ALCOHOL SCREENING DID YOU HAVE A DRINK CONTAINING ALCOHOL IN THE PAST YEAR?YES HOW OFTEN DID YOU HAVE SIX OR MORE DRINKS ON ONE OCCASION IN THE PAST YEAR?NEVER (0 POINTS) HOW MANY DRINKS DID YOU HAVE ON A TYPICAL DAY WHEN YOU WERE DRINKING IN THE PAST YEAR?1 OR 2 (0 POINTS) HOW OFTEN DID YOU HAVE A DRINK CONTAINING ALCOHOL IN THE PAST YEAR?TWO TO FOUR TIMES A MONTH (2 POINTS) POINTS2 INTERPRETATIONNEGATIVE RECREATIONAL DRUG USE DRUG USE?NO CAFFEINE CAFFEINE USE?YES ICED TEA = 2 LARGE CUPS PER DAY SEXUAL HX HAD SEX IN THE LAST 12 MONTHS (VAGINAL, ORAL, OR ANAL)?NO LMP:POST MENOPAUSE HAVE YOU EVER HAD AN STD?NO HIV / HEP-C SCREENING HIV TEST OFFERED TO PATIENT:YES DATE OFFERED:10/22/2019 TEST ACCEPTED:NO HEP-C TEST OFFERED TO PATIENT:YES DATE OFFERED:02/07/2017 REASON:PATIENT DECLINED TEST ACCEPTED:NO REASON:PATIENT DECLINED BROCHURE PROVIDED TO PATIENTNO LUTHERAN TSWVEIAR15 JEW NO SABIANIST BELIEFS THAT WOULD IMPACT HEALTH CARE. LANGUAGE LANGUAGES SPOKEN:ECUADOREAN EDUCATION LEVEL OF EDUCATION:FINISHED COLLEGE LEARNING BARRIERS / SPECIAL NEEDS CHANGE FROM LAST VISIT?NO BARRIERS TO LEARNING?NO HEARING IMPAIRED?NO VISION IMPAIRED?YES COGNITIVELY IMPAIRED?NO :CORRECTIVE LENSES READINESS TO LEARN?YES LEARNING PREFERENCES?NO LEARNING CAPABILITIES PRESENT?YES EMOTIONAL BARRIERS?NO SPECIAL DEVICES?NO SAND HAULER NEEDED?NO DOMESTIC VIOLENCE DO YOU FEEL SAFE IN YOUR ENVIRONMENT?YES OCCUPATION: UNEMPLOYED. DIET: REGULAR. EXERCISE: NO REGULAR EXERCISE. MARITAL STATUS: . OTHERS AT HOME: FRIEND STAYING WITH JAMES. - PFS REFERRAL NEEDED?NO CLERGY REFERRAL NEEDED?NO PUBLIC HEALTH REFERRAL NEEDED?NO WAS THE PROVIDER NOTIFIED OF ANY PERTINENT INFO?YES HAS THE PATIENT BEEN EDUCATED REGARDING HIS/HER PLAN OF CARE?YES HAS THE PATIENT BEEN EDUCATED REGARDING PAIN, THE RISK FOR PAIN, THE IMPORTANCE OF EFFECTIVE PAIN MANAGEMENT, AND THE PAIN ASSESSMENT PROCESS?YES ADVANCE DIRECTIVE ADVANCE DIRECTIVE DISCUSSED WITH PATIENT:YES PT STATES THAT SHE DOES NOT HAVE HCP AT THIS TIME. HOSPITALIZATION/MAJOR DIAGNOSTIC PROCEDURE FOR SURGERIES REVIEW OF SYSTEMS CONSTITUTIONAL: ANY RECENT FEVER NO . CHILLS NO . WEIGHT CHANGE OF UNKNOWN REASONS NO . GASTROENTEROLOGY: NEW UNEXPLAINABLE CHANGES IN BOWEL CONTROL NO . CONSTIPATION NO . GENITOURINARY: ANY NEW CHANGE IN BLADDER CONTROL? NO . NEUROLOGY: NEW ONSET DIZZINESS OR NEUROLOGICAL CHANGES NOT MENTIONED NO . NEW NUMBNESS OR PAIN PATTERNS NOT MENTIONED AND PERTINENT TO TODAY'S VISIT SHE HAS NEW MORE PAIN OCCASIONALLY OVER THE LEFT LEG, SWELLING AND CHANGING OF COLOR AND TEMPERATURE OVER THE LOWER EXTREMITIES . CARDIOLOGY: NEW CHEST PRESSURE NO . NEW CHEST PAIN NO . RESPIRATORY: UNEXPLAINABLE COUGH NO . NEW SHORTNESS OF BREATH NO . VITAL SIGNS WT 163.6 LBS, HT 62 IN, BMI 29.92 INDEX, BP 153/73 MM HG, HR 84 /MIN, RR 18 /MIN, TEMP 97.3 F, OXYGEN SAT % 98%, NA INITIALS AW 1508. EXAMINATION GENERAL EXAMINATION: THE PATIENT IS ALERT, ORIENTED TIMES THREE AND COOPERATIVE. LUNGS ARE CLEAR TO AUSCULTATION. HEART SHOWS REGULAR RHYTHM, NO MURMURS AND NO GALLOPS. THE PATIENT WALKS WITH AN ANTALGIC GAIT. THE RIGHT LEG SEEMS TO BE WEAKER THAN THE LEFT LEG ON FLEXION AND EXTENSION. SHE SEEMS TO BE LIMPING FROM THE RIGHT LEG. STRAIGHT LEG RAISE IS POSITIVE FOR RADICULOPATHY ON THE RIGHT AT 60 DEGREES. MRI OF THE LUMBAR SPINE DATED 03/16/2020 SHOWS FUSION WITH DISCECTOMY FROM L3 TO S1, POST LAMINECTOMY CHANGES, FACET ARTHROPATHY CHANGES. ASSESSMENTS SPINAL STENOSIS, LUMBAR REGION WITH NEUROGENIC CLAUDICATION - M48.062 (PRIMARY) LUMBAR POST-LAMINECTOMY SYNDROME - M96.1 TREATMENT SPINAL STENOSIS, LUMBAR REGION WITH NEUROGENIC CLAUDICATION CONTINUE TIZANIDINE HCL TABLET, 4 MG, 1 TABLET NEEDED, ORALLY FOR SPASMS AND PAIN, BEFORE BEDTIME MAY REPEAT IN 5 HRS MDD2, 15 DAYS, 30, REFILLS 0 CONTINUE OXYCODONE-ACETAMINOPHEN TABLET, 10-325 MG, 1 TABLET NEEDED, ORALLY FOR PAIN, EVERY 8 HRS MDD3, 15 DAYS, 45, REFILLS 0 CONTINUE LYRICA CAPSULE, 100 MG, 1 CAPSULE, ORALLY FOR PAIN, TID MDD3, 15 DAYS, 45, REFILLS 0 CLINICAL NOTES: I DISCUSSED ALTERNATIVES WITH MS. GRESHAM. SHE IS GOING TO HAVE HER SURGERY IN 2 WEEKS. THE PATIENT HAD SEVERAL QUESTIONS IN REGARD OF WHAT WILL HAPPEN WITH HER IN TERMS OF PHYSICAL THERAPY. SHE WAS HAVING SOME CONCERNS ABOUT THE REASONS WHY SHE IS HAVING THE SWELLING AND THE CHANGING IN COLORS OVER THE LOWER EXTREMITIES AND THE CHANGING IN TEMPERATURE. I EXPLAINED TO HER THAT THIS COULD BE NEUROPATHY ASSOCIATED WITH THE BACK PAIN. ALSO, WE HAVE TO KEEP IN MIND THE POSSIBILITY OF OTHER CONDITIONS SUCH A DIABETIC CONDITION WITH SOME SORT OF PERIPHERAL NEUROPATHY, DEFICIENCIES, FOR EXAMPLE B12, PROBLEMS WITH MALABSORPTION. SHE WILL NEED TO DISCUSS THIS WITH HER PRIMARY CARE TO BE CLEAR THAT THERE IS NOT AN UNDERLYING CONDITION CAUSING THIS PROBLEM. I HAD A LONG CONVERSATION WITH THE PATIENT, MORE THAN 30 MINUTES, OVER HALF OF THE TIME WAS SPENT DISCUSSING ALL OF THESE ISSUES ASSOCIATED WITH HER SURGERY. THE PLAN WILL BE THAT HER SURGEON WILL CONTINUE WITH THE MEDICATIONS AFTER THE SURGERY. IF THE PAIN PERSISTS, AFTER 3 MONTHS, THEN WE WILL SEE HER AT OUR FACILITY. I WILL GIVE HER A REFILL OF THE MEDICATIONS FOR 2 WEEKS. I REVIEWED WITH HER THE SAFETY OF THE USE OF THE MEDICATIONS. ISTOP REFERENCE NUMBER [id number]. FOR NOW I AM NOT GOING TO SCHEDULE A FOLLOW UP SINCE SHE WILL BE UNDER THE CARE OF HER SURGERY. THE PATIENT REPORTS UNDERSTANDING AND AGREES WITH THE PLAN. I, MALIK CLARK, DOCUMENTED THE ABOVE INFORMATION ACTING A SCRIBE FOR DR. RODRIGUEZ. I HAVE REVIEWED THE ABOVE DOCUMENT, WRITTEN BY MALIK CLARK, WOOD REPATCHER, AND I VERIFY THAT IT IS ACCURATE. PROCEDURE CODES FA211 ESTABILISHED PATIENT [facility] CHARGE DISPOSITION & COMMUNICATION ELECTRONICALLY SIGNED BY KATJA RODRIGUEZ MD, MD ON 12/06/2020 AT 01:43 PM EST DISCLAIMER : THIS IS A VISIT SUMMARY EXTRACTED FROM THE [employer] CHART. IT IS NOT A COPY OF THE [facility] PROGRESS NOTE. MTDD
== END ==
LOC: M PAIN 15:00
PROVIDERS: ATTEND Anesthesiology
DX: M48.062 Spinal stenosis, lumbar region with neurogenic claudication (principal); M96.1 Postlaminectomy syndrome, not elsewhere classified; F41.9 Anxiety disorder, unspecified; F32.9 Major depressive disorder, single episode, unspecified; G89.29 Other chronic pain; M54.2 Cervicalgia; Z85.828 Personal history of other malignant neoplasm of skin; Z87.891 Personal history of nicotine dependence; Z79.891 Long term (current) use of opiate analgesic; Z79.899 Other long term (current) drug therapy

== ENCOUNTER → 2020-12-29 | Outpatient (CLI) | payer OTHER | LOC: M LABSMTC 12:03 | PROVIDERS: ATTEND Orthopaedic Surgery Orthopaedic Surgery of the Spine | DX: Z01.818 Encounter for other preprocedural examination (principal); Z20.822 Contact with and (suspected) exposure to COVID-19 ==

== ENCOUNTER → 2021-04-29 | Outpatient (CLI) | payer OTHER ==
--- NOTE | 2021-04-29 17:54 | REPVR ---
PROCEDURE INFORMATION: Exam: MR Head Without Contrast Exam date and time: 04/29/2021 1:37 PM Age: 60 years old Clinical indication: Altered mental status/memory loss; Amnesia, not specified; Additional info: Other amnesia TECHNIQUE: Imaging protocol: MR of the head without contrast. COMPARISON: CT Spine,cervical w/o contrast 09/06/2020 9:19 AM FINDINGS: Brain: Evaluation for restricted diffusion is limited without B-1000 sequence. No definite restricted diffusion to suggest acute infarct. Few scattered minimal nonspecific T2/FLAIR hyperintensities of the periventricular and deep subcortical white matter, most likely secondary to chronic small vessel ischemic change. No intracranial hemorrhage or extra-axial fluid collection. No evidence of mass effect or midline shift. No restricted diffusion to suggest acute infarct. Cerebral ventricles: Normal. No ventriculomegaly. Bones/joints: Unremarkable. Paranasal sinuses: Mild mucosal thickening of the paranasal sinuses. Mastoid air cells: No mastoid effusion. Orbital cavity: Unremarkable. Soft tissues: Unremarkable. IMPRESSION: 1. No definite acute intracranial pathology. Evaluation for restricted diffusion is limited without B-1000 sequence. 2. Chronic intracranial findings, as above. 3. Mild mucosal thickening of the paranasal sinuses. Electronically signed by: Manuel Serna On 04/29/2021 17:54:32 PM
== END ==
LOC: M PLARAD 12:03
PROVIDERS: ATTEND Family Medicine
DX: I67.89 Other cerebrovascular disease (principal); J34.89 Other specified disorders of nose and nasal sinuses

== ENCOUNTER → 2021-07-18 | Outpatient (CLI) | payer OTHER | LOC: M LABSMTC 11:29 | PROVIDERS: ATTEND Family Medicine | DX: Z20.822 Contact with and (suspected) exposure to COVID-19 (principal) | CPT/HCPCS: C9803; U0003 ==

== ENCOUNTER → 2021-09-21 | Outpatient (CLI) | payer OTHER ==
[~2021-09-21] MED LIST changes: +TIZA10TA; -TIZA4TAB4
== END ==
LOC: M RAD 14:09
PROVIDERS: ATTEND Family Medicine
DX: Z12.2 Encounter for screening for malignant neoplasm of respiratory organs (principal); F17.211 Nicotine dependence, cigarettes, in remission; J47.9 Bronchiectasis, uncomplicated; R10.2 Pelvic and perineal pain; Z51.81 Encounter for therapeutic drug level monitoring

== ENCOUNTER → 2021-09-21 | Outpatient (REF) | payer OTHER ==
[2021-09-28 20:10] LABS: ALPRAZOLAM, URINE Negative (Cutoff=100); BENZODIAZEPINES, URINE Positive ng/mL (Cutoff=100); CANNABINOID, URINE Positive (Cutoff=20); CARBOXY THC (GC/MS) 14 ng/mL (Cutoff=10); CLONAZEPAM, URINE Negative (Cutoff=100); CODEINE, URINE Negative (Cutoff=100); CREATININE, URINE 155.1 mg/dL (20.0-300.0); FLURAZEPAM, URINE Negative (Cutoff=100); HYDROCODONE CONFIRM, URINE 4577 ng/mL (Cutoff=100); HYDROCODONE, URINE Positive (.); HYDROMORPHONE CONFIRM, URINE 659 ng/mL (Cutoff=100); HYDROMORPHONE, URINE Positive (.); LORAZEPAM, URINE Negative (Cutoff=100); MIDAZOLAM, URINE Negative (Cutoff=100); MORPHINE, URINE Negative (Cutoff=100); NORDIAZEPAM, URINE Positive (.); NORDIAZEPAM, URINE CONFIRM 478 ng/mL (Cutoff=100); OPIATES, URINE Positive ng/mL (Cutoff=300); OXAZEPAM, URINE Positive (.); OXAZEPAM, URINE CONFIRM 1018 ng/mL (Cutoff=100); TEMAZEPAM, URINE Positive (.); TEMAZEPAM, URINE CONFIRM 736 ng/mL (Cutoff=100); TRIAZOLAM, URINE Negative (Cutoff=100)
== END ==
LOC: M SFHCPLAZ 13:00
PROVIDERS: ATTEND Family Medicine
DX: R10.2 Pelvic and perineal pain (principal); Z51.81 Encounter for therapeutic drug level monitoring

== ENCOUNTER → 2021-10-12 | Outpatient (REF) | payer OTHER ==
[~2021-10-12] MED LIST changes: -TIZA10TA; +TIZA4TAB4
== END ==
LOC: M SFHCWAGY 17:19
PROVIDERS: ATTEND Nurse Practitioner Women's Health
DX: Z12.4 Encounter for screening for malignant neoplasm of cervix (principal)

== ENCOUNTER → 2021-10-12 | Outpatient (CLI) | payer OTHER ==
--- NOTE | 2021-10-12 16:14 | REPMRS ---
Patient History The patient states she had a clinical breast exam in October 12, 2021. Patient is postmenopausal, has history of other cancer at age 57, and is nulliparous. Family history of breast cancer at age 70 in maternal grandmother, pancreatic cancer at age 70 in paternal uncle. Benign lumpectomy of the right breast, 1992. Took estrogen for 5 years. Taking progesterone for 7 years. today. Patient has signed MRS History Sheet. Digital Woman Screen Mammo: October 12, 2021 - Exam #: [id number] Bilateral CC and MLO view(s) were taken. Technologist: RT Zeeshan Prior study comparison: January 23, 2019, bilateral digital woman screen mammo performed at [facility], [place]. 2017, bilateral screening 3D/tomosynthesis, performed at [facility]. FINDINGS: There are scattered fibroglandular densities. Screening. Digital screening (2D) mammography was performed bilaterally in the CC and MLO projections. Additionally, breast tomosynthesis (3D mammography) was performed bilaterally in the CC and MLO projections. Todays exam was compared to the prior exam/exams. By history, the patient has no complaints of a palpable breast abnormality or other significant breast complaints. The Volpara volumetric breast density category is B, there are scattered areas of fibroglandular densities. The breasts are unchanged in size and shape. There are no roshan-soft tissue densities or spiculated masses. There is no internal architectural distortion. There are no suspicious roshan-calcific clusters. Skin thickening or nipple retraction is not present. IMPRESSION: BI-RADS Category 2- Benign Findings. There is no evidence of malignant alteration of the breasts. Followup examination recommended in one year. This mammogram was read with the assistance of [facility],an FDA approved computer aided detection system for mammography. The lifetime Tyrer-Cuzick score is 12.0% Negative x-ray reports should not delay surgical consultation if a dominant or clinically suspicious mass is present. Not all breast cancers can be identified by mammography. Therefore, we recommend that you continue to perform regular breast self-examination and physical examination and then promptly contact your physician of any concerns or changes. Adenosis and dense breasts may obscure an underlying neoplasm. No significant changes when compared with prior studies. Assessment: BI-RADS/ACR category 2 mammogram. Benign Findings. Recommendation Routine screening mammogram of both breasts in 1 year. Electronically Signed By: Brenden Gandhi MD 10/12/21 [id number]
== END ==
LOC: M WHC 14:33
PROVIDERS: ATTEND Nurse Practitioner Women's Health
DX: Z12.4 Encounter for screening for malignant neoplasm of cervix (principal); Z12.31 Encounter for screening mammogram for malignant neoplasm of breast; Z78.0 Asymptomatic menopausal state; Z85.89 Personal history of malignant neoplasm of other organs and systems; Z80.3 Family history of malignant neoplasm of breast; Z86.018 Personal history of other benign neoplasm; Z92.23 Personal history of estrogen therapy; Z92.29 Personal history of other drug therapy
CPT/HCPCS: 77063; 77067; 87624; G0123; G0463

== ENCOUNTER → 2021-12-02 | Outpatient (CLI) | payer MEDICARE ==
[~2021-12-02] MED LIST changes: +TIZA10TA; -TIZA4TAB4
[2021-12-02 15:33] LABS: HEMATOCRIT 35.3 % (36.0-47.0); MEAN CORPUSCULAR HEMOGLOBIN 31.2 pg (27.0-33.0); MEAN CORPUSCULAR HGB CONC 31.2 g/dl (32.0-36.5); PLATELET COUNT, AUTOMATED 283 10^3/uL (150-450); RED BLOOD COUNT 3.53 10^6/uL (4.00-5.40); WHITE BLOOD COUNT 8.2 10^3/uL (4.0-10.0)
[2021-12-02 16:03] LABS: ALBUMIN 3.3 GM/DL (3.2-5.2); ALT/SGPT 17 U/L (12-78); BILIRUBIN,TOTAL 0.2 MG/DL (0.2-1.0); BLOOD UREA NITROGEN 14 MG/DL (7-18); CALCIUM LEVEL 9.1 MG/DL (8.8-10.2); CARBON DIOXIDE LEVEL 27 MEQ/L (21-32); CHLORIDE LEVEL 107 MEQ/L (98-107); CHOLESTEROL LEVEL 247 MG/DL (<200); CREATININE FOR GFR 0.81 MG/DL (0.55-1.30); FERRITIN 12 NG/ML (8-252); GLOMERULAR FILTRATION RATE > 60.0 (>45); GLUCOSE, FASTING 84 MG/DL (70-100); HDL CHOLESTEROL 76 MG/DL (>40); IRON (FE) 77 UG/DL (50-170); LDL CHOLESTEROL 132 MG/DL (<100); MAGNESIUM LEVEL 2.4 MG/DL (1.8-2.4); NON-HDL-C 171 MG/DL; PERCENT SATURATION 18.1 % (13.2-45.0); POTASSIUM SERUM 4.8 MEQ/L (3.5-5.1); SODIUM LEVEL 139 MEQ/L (136-145); TOTAL IRON BINDING CAPACITY 426 UG/DL (250-450); TRIGLYCERIDES LEVEL 196 MG/DL (<150)
[2021-12-02 16:04] LABS: TOTAL 25(OH) VITAMIN D 14.4 NG/ML (30.0-100.0); VITAMIN B12 LEVEL 279 PG/ML (247-911)
[2021-12-02 16:05] LABS: HEMOGLOBIN A1c 5.5 %
== END ==
LOC: M PLAIMG 13:37
PROVIDERS: ATTEND Family Medicine
DX: M17.0 Bilateral primary osteoarthritis of knee (principal); M19.071 Primary osteoarthritis, right ankle and foot; M19.072 Primary osteoarthritis, left ankle and foot; R10.2 Pelvic and perineal pain; Z13.220 Encounter for screening for lipoid disorders; Z13.1 Encounter for screening for diabetes mellitus; E55.9 Vitamin D deficiency, unspecified; R63.5 Abnormal weight gain; Z86.2 Personal history of diseases of the blood and blood-forming organs and certain disorders involving the immune mechanism; M85.871 Other specified disorders of bone density and structure, right ankle and foot; M85.872 Other specified disorders of bone density and structure, left ankle and foot; M16.0 Bilateral primary osteoarthritis of hip

== ENCOUNTER → 2021-12-16 | Outpatient (CLI) | payer MEDICARE | LOC: M PAIN 10:00 | PROVIDERS: ATTEND Anesthesiology | DX: M96.1 Postlaminectomy syndrome, not elsewhere classified (principal); M79.10 Myalgia, unspecified site; M79.18 Myalgia, other site; F32.A Depression, unspecified; F41.9 Anxiety disorder, unspecified; M54.2 Cervicalgia; Z85.828 Personal history of other malignant neoplasm of skin; Z87.891 Personal history of nicotine dependence; Z79.899 Other long term (current) drug therapy; Z79.1 Long term (current) use of non-steroidal anti-inflammatories (NSAID) ==

== ENCOUNTER 2022-01-08 20:34 | Emergency (ER) | payer MEDICARE ==
[~2022-01-08] VITALS: Ht 157.5 cm; Wt 86.8 kg
[2022-01-08] MEDS ORDERED: diazePAM 10MG/2ML SYRINGE (J3360 PER 5MG) IV ONE (20:50)
[2022-01-08] MEDS ORDERED: NS 1,000 ML IV ONE (20:50)
[2022-01-08 21:13] LABS: BASO # 0.1 10^3/uL (0.0-0.2); BASO % 0.5 % (0.0-1.0); EOS # 0.2 10^3/uL (0.0-0.5); EOS % 1.5 % (0.0-3.0); HEMATOCRIT 35.6 % (36.0-47.0); HEMOGLOBIN 11.3 g/dl (12.0-15.5); LYMPH # 2.3 10^3/uL (1.5-5.0); LYMPH % 20.2 % (24.0-44.0); MEAN CORPUSCULAR HEMOGLOBIN 31.7 pg (27.0-33.0); MEAN CORPUSCULAR HGB CONC 31.7 g/dl (32.0-36.5); MONO % 9.2 % (2.0-8.0); NEUTROPHILS # 7.6 10^3/uL (1.5-8.5); NEUTROPHILS % 68.2 % (36.0-66.0); PLATELET COUNT, AUTOMATED 240 10^3/uL (150-450); RED BLOOD COUNT 3.56 10^6/uL (4.00-5.40); WHITE BLOOD COUNT 11.2 10^3/uL (4.0-10.0)
[2022-01-08 21:38] LABS: ERYTHROCYTE SEDIMENTATION RATE 45 mm/hr (0-30)
[2022-01-08 21:45] LABS: ALBUMIN 3.5 GM/DL (3.2-5.2); BILIRUBIN,TOTAL 0.2 MG/DL (0.2-1.0); CALCIUM LEVEL 8.9 MG/DL (8.8-10.2); GLOMERULAR FILTRATION RATE 59.6 (>45); MAGNESIUM LEVEL 2.4 MG/DL (1.8-2.4); POTASSIUM SERUM 4.1 MEQ/L (3.5-5.1)
[2022-01-08] MEDS ORDERED: PERCOCET 5MG/325MG TAB PO ONE (22:30)
[2022-01-08] MEDS ORDERED: oxyCODONE 5MG TAB PO ONE (22:35)
[2022-01-08] MEDS ORDERED: PREG100C PO (23:31)
[2022-01-09] MEDS ORDERED: PROHANCE 279.3MG/ML 15ML VIAL As Ordered ONE (00:04)
[2022-01-09] MEDS ORDERED: FLUID PLACE HOLDER IV ONE (01:25)
[2022-01-09] MEDS ORDERED: VANCOMYCIN HCL IV ONE (01:25)
[2022-01-09] MEDS ORDERED: VANCOMYCIN HCL 1,000 MG, VIAL MATE ADAPTER 1 EACH in NS 250 ML IV ONE ×2 (01:30→10:35)
[2022-01-09] MEDS ORDERED: VENL75CA47 PO (01:42)
[2022-01-09] MEDS ORDERED: OMEP-173 PO (01:43)
[2022-01-09] MEDS ORDERED: TIZA10TA PO (01:43)
[2022-01-09] MEDS ORDERED: HOME MED LIST COMPLETE! XX SCH (01:45)
[2022-01-09] MEDS ORDERED: VANCOMYCIN HCL 750 MG, VIAL MATE ADAPTER 1 EACH in NS 250 ML IV ONE (02:30)
[2022-01-09] MEDS ORDERED: diazePAM 10MG/2ML SYRINGE (J3360 PER 5MG) IV ONE (03:45)
[2022-01-09] MEDS: MORPHINE 4 MG/ML 1ML VIAL/SYRINGE (J2270) IV PRN ×2 (04:00→08:01)
[2022-01-09 07:32] LABS: C REACTIVE PROTEIN QUANTITATIV 1.8 MG/DL (0.00-0.30)
[2022-01-09 09:43] LABS: RSV AMPLIFICATION NEGATIVE (NEGATIVE)
[2022-01-09] MEDS ORDERED: VANCOMYCIN HCL 1,000 MG, VIAL MATE ADAPTER 1 EACH in NS 250 ML IV SCH (10:25)
[2022-01-09] MEDS ORDERED: PREGABALIN 100 MG CAP (LYRICA) PO ONE (11:30)
[2022-01-09] MEDS ORDERED: HYDROmorphone 2 MG TAB PO ONE ×2 (11:30→14:25)
[2022-01-09] MEDS ORDERED: LIDOCAINE 2% 5ML JELLY UROJET TOP ONE (13:15)
[2022-01-09 14:30] VITALS: BP 134/89
== END 2022-01-09 14:54 | disposition short-term general hospital (02) ==
LOC: M ED 20:34
DX: M46.26 Osteomyelitis of vertebra, lumbar region (principal); G62.9 Polyneuropathy, unspecified; Z79.899 Other long term (current) drug therapy
CPT/HCPCS: 51702; 72128; 72131; 72158; 80053; 81001; 83735; 85025; 85652; 86140; 87040; 87631; 96361; 96365; 96367; 96375; 96376; 99285; A9576; J2270; J3360; J3370

== ENCOUNTER → 2022-03-21 | Outpatient (CLI) | payer MEDICARE ==
[~2022-03-21] MED LIST changes: +OMEP-173 PO; +PREG100C PO; +TIZA10TA PO; +VENL75CA47 PO
[2022-03-21 10:46] LABS: ERYTHROCYTE SEDIMENTATION RATE 41 mm/hr (0-30)
[2022-03-21 10:52] LABS: ALBUMIN 3.2 GM/DL (3.2-5.2); ALT/SGPT 15 U/L (12-78); BILIRUBIN,TOTAL 0.3 MG/DL (0.2-1.0); BLOOD UREA NITROGEN 11 MG/DL (7-18); CALCIUM LEVEL 9.8 MG/DL (8.8-10.2); CARBON DIOXIDE LEVEL 27 MEQ/L (21-32); CHLORIDE LEVEL 107 MEQ/L (98-107); CREATININE FOR GFR 0.78 MG/DL (0.55-1.30); FERRITIN 12 NG/ML (8-252); GLOMERULAR FILTRATION RATE > 60.0 (>45); GLUCOSE, FASTING 114 MG/DL (70-100); IRON (FE) 27 UG/DL (50-170); PERCENT SATURATION 6.4 % (13.2-45.0); POTASSIUM SERUM 5.1 MEQ/L (3.5-5.1); SODIUM LEVEL 140 MEQ/L (136-145); TOTAL IRON BINDING CAPACITY 421 UG/DL (250-450)
[2022-03-21 10:58] LABS: VITAMIN B12 LEVEL 519 PG/ML
[2022-03-21 11:04] LABS: BASO % 0.6 % (0.0-1.0); EOS # 0.1 10^3/uL (0.0-0.5); EOS % 1.5 % (0.0-3.0); HEMOGLOBIN 9.8 g/dl (12.0-15.5); LYMPH # 1.4 10^3/uL (1.5-5.0); LYMPH % 21.4 % (24.0-44.0); MEAN CORPUSCULAR HEMOGLOBIN 27.8 pg (27.0-33.0); MEAN CORPUSCULAR HGB CONC 30.6 g/dl (32.0-36.5); MEAN CORPUSCULAR VOLUME 90.9 fl (80.0-96.0); MONO # 0.7 10^3/uL (0.0-0.8); MONO % 10.4 % (2.0-8.0); NEUTROPHILS # 4.3 10^3/uL (1.5-8.5); NEUTROPHILS % 65.6 % (36.0-66.0); PLATELET COUNT, AUTOMATED 303 10^3/uL (150-450); RED BLOOD COUNT 3.52 10^6/uL (4.00-5.40); WHITE BLOOD COUNT 6.5 10^3/uL (4.0-10.0)
== END ==
LOC: M PLALAB 08:52
PROVIDERS: ATTEND Family Medicine
DX: D64.9 Anemia, unspecified (principal)

== ENCOUNTER → 2022-06-21 | Outpatient (CLI) | payer MEDICARE | LOC: M RAD 12:37 | PROVIDERS: ATTEND Physician Assistant | DX: M79.89 Other specified soft tissue disorders (principal) ==

== ENCOUNTER → 2022-06-21 | Outpatient (CLI) | payer MEDICARE | LOC: M RAD 12:47 | DX: Z98.1 Arthrodesis status (principal) ==

== ENCOUNTER → 2022-07-05 | Outpatient (CLI) | payer MEDICARE ==
[2022-07-05 10:25] LABS: BASO # 0.1 10^3/uL (0.0-0.2); EOS # 0.3 10^3/uL (0.0-0.5); EOS % 3.8 % (0.0-3.0); HEMATOCRIT 38.9 % (36.0-47.0); HEMOGLOBIN 12.4 g/dl (12.0-15.5); LYMPH # 2.6 10^3/uL (1.5-5.0); LYMPH % 35.2 % (24.0-44.0); MEAN CORPUSCULAR HEMOGLOBIN 31.2 pg (27.0-33.0); MEAN CORPUSCULAR HGB CONC 31.9 g/dl (32.0-36.5); MEAN CORPUSCULAR VOLUME 97.7 fl (80.0-96.0); MONO # 0.8 10^3/uL (0.0-0.8); MONO % 10.7 % (2.0-8.0); NEUTROPHILS # 3.6 10^3/uL (1.5-8.5); NEUTROPHILS % 48.8 % (36.0-66.0); PLATELET COUNT, AUTOMATED 285 10^3/uL (150-450); RED BLOOD COUNT 3.98 10^6/uL (4.00-5.40); WHITE BLOOD COUNT 7.4 10^3/uL (4.0-10.0)
[2022-07-05 11:05] LABS: ERYTHROCYTE SEDIMENTATION RATE 28 mm/hr (0-30)
[2022-07-05 11:12] LABS: ALT/SGPT 25 U/L (12-78); BLOOD UREA NITROGEN 9 MG/DL (7-18); CALCIUM LEVEL 8.7 MG/DL (8.8-10.2); CARBON DIOXIDE LEVEL 26 MEQ/L (21-32); CHLORIDE LEVEL 107 MEQ/L (98-107); CREATININE FOR GFR 0.99 MG/DL (0.55-1.30); GLOMERULAR FILTRATION RATE > 60.0 (>45); GLUCOSE, FASTING 141 MG/DL (70-100); POTASSIUM SERUM 4.1 MEQ/L (3.5-5.1); SODIUM LEVEL 138 MEQ/L (136-145)
[2022-07-05 11:13] LABS: ALBUMIN 3.3 GM/DL (3.2-5.2); BILIRUBIN,TOTAL 0.2 MG/DL (0.2-1.0); FREE T4 0.77 NG/DL (0.76-1.46); IRON (FE) 77 UG/DL (50-170); PERCENT SATURATION 18.6 % (13.2-45.0); TOTAL IRON BINDING CAPACITY 413 UG/DL (250-450); TOTAL PROTEIN 7.3 GM/DL (6.4-8.2)
[2022-07-05 11:55] LABS: CORTISOL AM 25.3 UG/DL (4.3-22.4); TOTAL 25(OH) VITAMIN D 33.5 NG/ML (30.0-100.0); VITAMIN B12 LEVEL 718 PG/ML (247-911)
== END ==
LOC: M PLAIMG 07:29
PROVIDERS: ATTEND Physician Assistant
DX: M19.072 Primary osteoarthritis, left ankle and foot (principal); M79.672 Pain in left foot; G89.29 Other chronic pain; M79.89 Other specified soft tissue disorders; E83.42 Hypomagnesemia; Z86.2 Personal history of diseases of the blood and blood-forming organs and certain disorders involving the immune mechanism; Z79.899 Other long term (current) drug therapy

== ENCOUNTER → 2022-07-19 | Outpatient (REF) | payer MEDICARE | LOC: M SFHCPLAZ 17:12 | PROVIDERS: ATTEND Physician Assistant | DX: R30.0 Dysuria (principal) ==

== ENCOUNTER → 2022-08-02 | Outpatient (CLI) | payer MEDICARE ==
[2022-08-02 11:54] LABS: HEMOGLOBIN A1c 5.5 %
[2022-08-02 12:47] LABS: RHEUMATOID FACTOR QUANT < 10.0 IU/ML (<15.0); T UPTAKE 31 % (30-39); THYROXINE (T4) 6.6 UG/DL (4.5-12.0); TOTAL PROTEIN 7.8 GM/DL (6.4-8.2); VITAMIN B12 LEVEL 551 PG/ML (247-911)
== END ==
LOC: M PLALAB 08:54
PROVIDERS: ATTEND Psychiatry & Neurology Neurology
DX: E03.9 Hypothyroidism, unspecified (principal); D51.9 Vitamin B12 deficiency anemia, unspecified; G60.9 Hereditary and idiopathic neuropathy, unspecified; E11.9 Type 2 diabetes mellitus without complications

== ENCOUNTER → 2022-08-02 | Outpatient (CLI) | payer MEDICARE ==
[2022-08-02 11:07] LABS: HEMOGLOBIN A1c 5.6 %
[2022-08-02 12:02] LABS: FREE T3 2.4 PG/ML (2.2-4.0); FREE T4 0.71 NG/DL (0.76-1.46)
[2022-08-02 12:23] LABS: THYROID PEROXIDASE ANTIBODY < 28.0 U/ML (<60.0)
== END ==
LOC: M PLAIMG 09:28
PROVIDERS: ATTEND Physician Assistant
DX: R73.03 Prediabetes (principal); Z13.29 Encounter for screening for other suspected endocrine disorder

== ENCOUNTER → 2022-09-12 | Outpatient (CLI) | payer MEDICARE | LOC: M RAD 16:29 | PROVIDERS: ATTEND Physician Assistant | DX: J47.9 Bronchiectasis, uncomplicated (principal) ==

== ENCOUNTER → 2023-04-20 | Outpatient (CLI) | payer MEDICARE | LOC: M WHC 07:18 | PROVIDERS: ATTEND Physician Assistant | DX: R10.11 Right upper quadrant pain (principal); Z78.0 Asymptomatic menopausal state ==

== ENCOUNTER → 2023-05-30 | Outpatient (CLI) | payer MEDICARE ==
[2023-05-30 15:31] LABS: BASO # 0.1 10^3/uL (0.0-0.2); BASO % 0.6 % (0.0-1.0); EOS # 0.1 10^3/uL (0.0-0.5); EOS % 1.3 % (0.0-3.0); HEMATOCRIT 42.3 % (36.0-47.0); HEMOGLOBIN 13.7 g/dl (12.0-15.5); LYMPH # 1.7 10^3/uL (1.5-5.0); LYMPH % 16.8 % (24.0-44.0); MEAN CORPUSCULAR HEMOGLOBIN 34.5 pg (27.0-33.0); MEAN CORPUSCULAR HGB CONC 32.4 g/dl (32.0-36.5); MEAN CORPUSCULAR VOLUME 106.5 fl (80.0-96.0); MONO # 0.9 10^3/uL (0.0-0.8); MONO % 8.7 % (2.0-8.0); NEUTROPHILS # 7.4 10^3/uL (1.5-8.5); PLATELET COUNT, AUTOMATED 273 10^3/uL (150-450); RED BLOOD COUNT 3.97 10^6/uL (4.00-5.40); WHITE BLOOD COUNT 10.2 10^3/uL (4.0-10.0)
[2023-05-30 15:55] LABS: ERYTHROCYTE SEDIMENTATION RATE 31 mm/hr (0-30)
[2023-05-30 15:56] LABS: HEMOGLOBIN A1c 5.5 % (4.0-6.0)
[2023-05-30 16:13] LABS: ALBUMIN 3.7 G/DL (3.2-5.2); ALKALINE PHOSPHATASE 181 U/L (46-116); ALT/SGPT 96 U/L (7.0-40); AST/SGOT 64 U/L (<34); BILIRUBIN,TOTAL 0.5 MG/DL (0.3-1.2); BLOOD UREA NITROGEN 11 MG/DL (9-23); CALCIUM LEVEL 9.6 MG/DL (8.3-10.6); CARBON DIOXIDE LEVEL 28 MMOL/L (20-31); CHLORIDE LEVEL 102 MMOL/L (98-107); CHOLESTEROL LEVEL 230 MG/DL (<200); CHOLESTEROL RISK RATIO 3.39 (<5); CREATININE FOR GFR 0.88 MG/DL (0.55-1.30); FERRITIN 50.7 NG/ML (7.3-270.7); FREE T4 0.78 NG/DL (0.89-1.76); GLOMERULAR FILTRATION RATE > 60.0 (>45); GLUCOSE, FASTING 87 MG/DL (74-106); HDL CHOLESTEROL 67.8 MG/DL (>40); LDL CHOLESTEROL 136.2 MG/DL (<100); NON-HDL-C 162.2 MG/DL; POTASSIUM SERUM 4.7 MMOL/L (3.5-5.1); SODIUM LEVEL 139 MMOL/L (136-145); THYROID STIMULATING HORMONE 2.845 uIU/ML (0.55-4.78); TOTAL 25(OH) VITAMIN D 17.2 NG/ML (20.0-100.0); TOTAL PROTEIN 7.5 G/DL (5.7-8.2); TRIGLYCERIDES LEVEL 130 MG/DL (<150); VITAMIN B12 LEVEL 394 PG/ML (211-911)
[2023-05-31 15:58] LABS: MAGNESIUM LEVEL 2.1 MG/DL (1.8-2.4)
== END ==
LOC: M PLALAB 12:47
PROVIDERS: ATTEND Physician Assistant
DX: R41.840 Attention and concentration deficit (principal); E55.9 Vitamin D deficiency, unspecified; E78.2 Mixed hyperlipidemia; E66.9 Obesity, unspecified; Z86.2 Personal history of diseases of the blood and blood-forming organs and certain disorders involving the immune mechanism

== ENCOUNTER → 2023-07-11 | Outpatient (CLI) | payer MEDICARE ==
[~2023-07-11] MED LIST changes: -PREG100C PO; +PREG100C2 PO
== END ==
LOC: M SOG 07:56
PROVIDERS: ATTEND Orthopaedic Surgery
DX: M19.011 Primary osteoarthritis, right shoulder (principal)

== ENCOUNTER → 2023-07-12 | Outpatient (REF) | payer OTHER, MEDICARE | LOC: M SFHCPLAZ 09:49 | PROVIDERS: ATTEND Physician Assistant | DX: R39.9 Unspecified symptoms and signs involving the genitourinary system (principal) ==

== ENCOUNTER → 2023-09-20 | Outpatient (CLI) | payer OTHER ==
[~2023-09-20] MED LIST changes: +PROHANCE 279.3MG/ML 15ML VIAL ONE; +PROHANCE 279.3MG/ML 5ML VIAL ONE
== END ==
LOC: M PLAIMG 13:12
PROVIDERS: ATTEND Physician Assistant
DX: R51.9 Headache, unspecified (principal); R42 Dizziness and giddiness; R47.89 Other speech disturbances; M25.511 Pain in right shoulder; M50.30 Other cervical disc degeneration, unspecified cervical region; M48.02 Spinal stenosis, cervical region; M50.122 Cervical disc disorder at C5-C6 level with radiculopathy; M50.121 Cervical disc disorder at C4-C5 level with radiculopathy
CPT/HCPCS: 70553; 72141; A9576

== ENCOUNTER → 2023-12-04 | Outpatient (CLI) | payer OTHER ==
[~2023-12-04] MED LIST changes: -EFFE150C2 PO; +EFFE150C3 PO; -PROHANCE 279.3MG/ML 15ML VIAL ONE; -PROHANCE 279.3MG/ML 5ML VIAL ONE
[2023-12-04 16:07] LABS: ALBUMIN 3.5 G/DL (3.2-5.2); ALKALINE PHOSPHATASE 111 U/L (46-116); ALT/SGPT 77 U/L (7.0-40); AST/SGOT 50 U/L (<34); BILIRUBIN,TOTAL 0.6 MG/DL (0.3-1.2); BLOOD UREA NITROGEN 23 MG/DL (9-23); CALCIUM LEVEL 9.3 MG/DL (8.3-10.6); CARBON DIOXIDE LEVEL 31 MMOL/L (20-31); CHLORIDE LEVEL 99 MMOL/L (98-107); GLOMERULAR FILTRATION RATE 43.8 (>45); GLUCOSE, FASTING 129 MG/DL (74-106); POTASSIUM SERUM 4.6 MMOL/L (3.5-5.1); SODIUM LEVEL 134 MMOL/L (136-145); TOTAL PROTEIN 7.3 G/DL (5.7-8.2)
[2023-12-04 16:09] LABS: BASO # 0.1 10^3/uL (0.0-0.2); BASO % 0.6 % (0.0-1.0); EOS % 0.2 % (0.0-3.0); HEMATOCRIT 43.6 % (36.0-47.0); HEMOGLOBIN 14.4 g/dl (12.0-15.5); LYMPH # 0.9 10^3/uL (1.5-5.0); LYMPH % 7.2 % (24.0-44.0); MEAN CORPUSCULAR HEMOGLOBIN 34.5 pg (27.0-33.0); MEAN CORPUSCULAR VOLUME 104.6 fl (80.0-96.0); MONO # 0.5 10^3/uL (0.0-0.8); MONO % 4.1 % (2.0-8.0); NEUTROPHILS # 11.1 10^3/uL (1.5-8.5); PLATELET COUNT, AUTOMATED 204 10^3/uL (150-450); RED BLOOD COUNT 4.17 10^6/uL (4.00-5.40); WHITE BLOOD COUNT 12.7 10^3/uL (4.0-10.0)
[2023-12-04 16:10] LABS: FREE T3 3.8 PG/ML (2.3-4.2)
[2023-12-04 16:11] LABS: FREE T4 1.02 NG/DL (0.89-1.76); THYROID STIMULATING HORMONE 2.524 uIU/ML (0.55-4.78)
[2023-12-04 16:21] LABS: ERYTHROCYTE SEDIMENTATION RATE 20 mm/hr (0-30)
[2023-12-04 16:54] LABS: HEPATITIS C VIRUS ABY INDEX < 0.02 INDEX (<0.8)
[2023-12-04 16:55] LABS: HEPATITIS B CORE ANTIBODY IGM NEGATIVE (NEGATIVE)
== END ==
LOC: M PLALAB 12:36
PROVIDERS: ATTEND Physician Assistant
DX: Z00.00 Encounter for general adult medical examination without abnormal findings (principal); R79.82 Elevated C-reactive protein (CRP); E66.09 Other obesity due to excess calories; R79.89 Other specified abnormal findings of blood chemistry; R70.0 Elevated erythrocyte sedimentation rate; Z79.899 Other long term (current) drug therapy; Z11.59 Encounter for screening for other viral diseases; Z72.89 Other problems related to lifestyle

== ENCOUNTER → 2024-01-23 | Outpatient (CLI) | payer OTHER | LOC: M RAD 12:33 | PROVIDERS: ATTEND Otolaryngology | DX: J32.2 Chronic ethmoidal sinusitis (principal) ==

== ENCOUNTER → 2024-01-23 | Outpatient (CLI) | payer OTHER | LOC: M RAD 12:32 | PROVIDERS: ATTEND Physician Assistant | DX: Z12.2 Encounter for screening for malignant neoplasm of respiratory organs (principal); F17.211 Nicotine dependence, cigarettes, in remission; R91.8 Other nonspecific abnormal finding of lung field; J47.9 Bronchiectasis, uncomplicated; K76.0 Fatty (change of) liver, not elsewhere classified; R05.3 Chronic cough; J32.2 Chronic ethmoidal sinusitis ==

== ENCOUNTER → 2024-01-31 | Outpatient (CLI) | payer OTHER | LOC: M RAD 12:23 | PROVIDERS: ATTEND Chiropractor | DX: M99.03 Segmental and somatic dysfunction of lumbar region (principal); M51.36 Other intervertebral disc degeneration, lumbar region; M99.02 Segmental and somatic dysfunction of thoracic region; M51.34 Other intervertebral disc degeneration, thoracic region; M99.01 Segmental and somatic dysfunction of cervical region; M50.33 Other cervical disc degeneration, cervicothoracic region; Z96.89 Presence of other specified functional implants ==

== ENCOUNTER → 2024-07-23 | Outpatient (CLI) | payer OTHER ==
[2024-07-23 14:10] LABS: BASO # 0.1 10^3/uL (0.0-0.2); BASO % 0.7 % (0.0-1.0); EOS # 0.1 10^3/uL (0.0-0.5); EOS % 1.5 % (0.0-3.0); HEMATOCRIT 44.1 % (36.0-47.0); HEMOGLOBIN 15.2 g/dl (12.0-15.5); LYMPH # 2.1 10^3/uL (1.5-5.0); LYMPH % 28.4 % (24.0-44.0); MEAN CORPUSCULAR HGB CONC 34.5 g/dl (32.0-36.5); MEAN CORPUSCULAR VOLUME 104.5 fl (80.0-96.0); MONO # 0.6 10^3/uL (0.0-0.8); MONO % 8.7 % (2.0-8.0); NEUTROPHILS # 4.4 10^3/uL (1.5-8.5); NEUTROPHILS % 60.3 % (36.0-66.0); PLATELET COUNT, AUTOMATED 209 10^3/uL (150-450); RED BLOOD COUNT 4.22 10^6/uL (4.00-5.40); WHITE BLOOD COUNT 7.2 10^3/uL (4.0-10.0)
[2024-07-23 14:42] LABS: ALBUMIN 3.3 G/DL (3.2-5.2); ALKALINE PHOSPHATASE 134 U/L (46-116); ALT/SGPT 63 U/L (7.0-40); AST/SGOT 59 U/L (<34); BILIRUBIN,TOTAL 0.7 MG/DL (0.3-1.2); BLOOD UREA NITROGEN 13 MG/DL (9-23); CALCIUM LEVEL 9.5 MG/DL (8.3-10.6); CARBON DIOXIDE LEVEL 32 MMOL/L (20-31); CHLORIDE LEVEL 104 MMOL/L (98-107); CREATININE FOR GFR 0.89 MG/DL (0.55-1.30); GLOMERULAR FILTRATION RATE > 60.0 (>45); GLUCOSE, FASTING 97 MG/DL (74-106); POTASSIUM SERUM 5.2 MMOL/L (3.5-5.1); SODIUM LEVEL 138 MMOL/L (136-145); TOTAL PROTEIN 6.9 G/DL (5.7-8.2)
[2024-07-23 14:44] LABS: TOTAL 25(OH) VITAMIN D 123.9 NG/ML (20.0-100.0)
[2024-07-23 14:58] LABS: VITAMIN B12 LEVEL 350 PG/ML (211-911)
[2024-07-23 16:26] LABS: HEMOGLOBIN A1c 4.8 % (4.0-6.0)
== END ==
LOC: M PLALAB 10:33
PROVIDERS: ATTEND Physician Assistant
DX: R79.89 Other specified abnormal findings of blood chemistry (principal); E11.9 Type 2 diabetes mellitus without complications; E55.9 Vitamin D deficiency, unspecified; D72.829 Elevated white blood cell count, unspecified; E53.8 Deficiency of other specified B group vitamins; Z86.2 Personal history of diseases of the blood and blood-forming organs and certain disorders involving the immune mechanism

== ENCOUNTER → 2024-07-31 | Outpatient (CLI) | payer OTHER | LOC: M RAD 17:07 | PROVIDERS: ATTEND Physician Assistant | DX: F17.211 Nicotine dependence, cigarettes, in remission (principal); R05.3 Chronic cough ==

== ENCOUNTER → 2024-08-21 | Outpatient (CLI) | payer OTHER ==
[~2024-08-21] MED LIST changes: +ISOVUE-370 76% 100ML VIAL ONE
== END ==
LOC: M PLAIMG 13:49
PROVIDERS: ATTEND Physician Assistant
DX: J47.9 Bronchiectasis, uncomplicated (principal); K76.0 Fatty (change of) liver, not elsewhere classified
CPT/HCPCS: 71260; Q9967

== ENCOUNTER → 2024-11-11 | Outpatient (REF) | payer OTHER ==
[~2024-11-11] MED LIST changes: -ISOVUE-370 76% 100ML VIAL ONE
== END ==
LOC: M SFHCPLAZ 18:03
PROVIDERS: ATTEND Family Medicine
DX: E67.3 Hypervitaminosis D (principal); Z13.1 Encounter for screening for diabetes mellitus; Z79.899 Other long term (current) drug therapy; Z53.9 Procedure and treatment not carried out, unspecified reason

== ENCOUNTER → 2024-12-16 | Outpatient (REF) | payer MEDICARE | LOC: M SFHCPLAZ 18:38 | PROVIDERS: ATTEND Family Medicine | DX: N95.1 Menopausal and female climacteric states (principal); Z79.899 Other long term (current) drug therapy; G89.29 Other chronic pain; Z13.1 Encounter for screening for diabetes mellitus ==

== ENCOUNTER → 2025-01-29 | Outpatient (CLI) | payer MEDICARE ==
[2025-01-29 18:22] LABS: ALBUMIN 3.5 G/DL (3.2-5.2); ALKALINE PHOSPHATASE 111 U/L (35-104); ALT/SGPT 52 U/L (7.0-40); AST/SGOT 45 U/L (<34); BILIRUBIN,TOTAL 0.3 MG/DL (0.3-1.2); BLOOD UREA NITROGEN 11 MG/DL (9-23); C REACTIVE PROTEIN QUANTITATIV 1.53 MG/DL (<1.0); CALCIUM LEVEL 9.3 MG/DL (8.3-10.6); CARBON DIOXIDE LEVEL 30 MMOL/L (20-31); CHLORIDE LEVEL 101 MMOL/L (98-107); CHOLESTEROL LEVEL 230 MG/DL (<200); CHOLESTEROL RISK RATIO 3.87 (<5); CREATININE FOR GFR 0.94 MG/DL (0.55-1.30); GLOMERULAR FILTRATION RATE > 60.0 (>45); GLUCOSE, FASTING 122 MG/DL (74-106); HDL CHOLESTEROL 59.4 MG/DL (>40); LDL CHOLESTEROL 139.6 MG/DL (<100); NON-HDL-C 170.6 MG/DL; POTASSIUM SERUM 3.9 MMOL/L (3.5-5.1); SODIUM LEVEL 139 MMOL/L (136-145); TRIGLYCERIDES LEVEL 155 MG/DL (<150)
[2025-01-29 18:27] LABS: BASO # 0.1 10^3/uL (0.0-0.2); BASO % 0.8 % (0.0-1.0); EOS # 0.1 10^3/uL (0.0-0.5); EOS % 2.3 % (0.0-3.0); HEMATOCRIT 37.4 % (36.0-47.0); HEMOGLOBIN 12.6 g/dl (12.0-15.5); LYMPH # 1.6 10^3/uL (1.5-5.0); LYMPH % 25.5 % (24.0-44.0); MEAN CORPUSCULAR HEMOGLOBIN 35.1 pg (27.0-33.0); MEAN CORPUSCULAR HGB CONC 33.7 g/dl (32.0-36.5); MEAN CORPUSCULAR VOLUME 104.2 fl (80.0-96.0); MONO # 0.6 10^3/uL (0.0-0.8); MONO % 8.9 % (2.0-8.0); NEUTROPHILS # 3.8 10^3/uL (1.5-8.5); NEUTROPHILS % 61.9 % (36.0-66.0); PLATELET COUNT, AUTOMATED 231 10^3/uL (150-450); RED BLOOD COUNT 3.59 10^6/uL (4.00-5.40); WHITE BLOOD COUNT 6.2 10^3/uL (4.0-10.0)
[2025-01-29 18:39] LABS: ERYTHROCYTE SEDIMENTATION RATE 19 mm/hr (0-30)
[2025-01-29 18:55] LABS: HEMOGLOBIN A1c 5.4 % (4.0-6.0)
== END ==
LOC: M PLALAB 15:41
PROVIDERS: ATTEND Student in an Organized Health Care Education/Training Program
DX: G89.29 Other chronic pain (principal); Z79.899 Other long term (current) drug therapy; Z13.1 Encounter for screening for diabetes mellitus; Z13.21 Encounter for screening for nutritional disorder; E55.9 Vitamin D deficiency, unspecified

== ENCOUNTER → 2025-02-20 | Outpatient (REF) | payer MEDICARE ==
[2025-02-20 13:32] LABS: BASO % 0.5 % (0.0-1.0); EOS # 0.2 10^3/uL (0.0-0.5); EOS % 2.9 % (0.0-3.0); HEMATOCRIT 40.4 % (36.0-47.0); HEMOGLOBIN 13.3 g/dl (12.0-15.5); LYMPH # 1.5 10^3/uL (1.5-5.0); LYMPH % 23.8 % (24.0-44.0); MEAN CORPUSCULAR HEMOGLOBIN 34.5 pg (27.0-33.0); MEAN CORPUSCULAR HGB CONC 32.9 g/dl (32.0-36.5); MEAN CORPUSCULAR VOLUME 104.7 fl (80.0-96.0); MONO # 0.6 10^3/uL (0.0-0.8); MONO % 10.3 % (2.0-8.0); NEUTROPHILS # 3.9 10^3/uL (1.5-8.5); NEUTROPHILS % 62.2 % (36.0-66.0); PLATELET COUNT, AUTOMATED 252 10^3/uL (150-450); RED BLOOD COUNT 3.86 10^6/uL (4.00-5.40); WHITE BLOOD COUNT 6.2 10^3/uL (4.0-10.0)
[2025-02-20 13:36] LABS: C REACTIVE PROTEIN QUANTITATIV 0.6 MG/DL (<1.0)
[2025-02-20 13:37] LABS: ALBUMIN 3.6 G/DL (3.2-5.2); BILIRUBIN,TOTAL 0.4 MG/DL (0.3-1.2); CALCIUM LEVEL 9.2 MG/DL (8.3-10.6); CREATININE FOR GFR 0.91 MG/DL (0.55-1.30); GLOMERULAR FILTRATION RATE 69.6 (>45); POTASSIUM SERUM 5.1 MMOL/L (3.5-5.1); TOTAL PROTEIN 7.3 G/DL (5.7-8.2)
[2025-02-20 13:40] LABS: ERYTHROCYTE SEDIMENTATION RATE 15 mm/hr (0-30)
== END ==
LOC: M SFHCADAM 10:37
PROVIDERS: ATTEND Physician Assistant
DX: R21 Rash and other nonspecific skin eruption (principal)

== ENCOUNTER → 2025-05-15 | Outpatient (REF) | payer MEDICARE ==
[~2025-05-15] MED LIST changes: +AZO-95TA3 PO; +BACL10TA2 PO; +CEFD1CAP9 PO; +CLOT1CRE56 TOP; +FLUC100T3 PO; +FLUTISP; +HYDR-3363 PO; +IBUP200T46 PO; +LEVOTAB10 PO; +LIDO1ADH93 TD; -LIDO5DIS41 TD; +MED REC COMMENT; +NYST1POW3 TOP; +OXYC1TAB23 PO; +PREG-35 PO; +TACR0.1O TOP; +TRIA1CR80 TOP
[2025-05-17 23:22] LABS: BVAB 2 NEGATIVE (NEGATIVE); CANDIDA GLABRATA NAA NOT DETECTED (NOT DETECTED); TRICH VAG BY NAA NOT DETECTED (NOT DETECTED)
[2025-05-17 23:32] LABS: CHLAMYDIA TRACHOMATIS NAA NOT DETECTED (NOT DETECTED)
== END ==
LOC: M SFHCPLAZ 17:05
PROVIDERS: ATTEND Physician Assistant
DX: Z00.00 Encounter for general adult medical examination without abnormal findings (principal); N89.8 Other specified noninflammatory disorders of vagina; Z11.3 Encounter for screening for infections with a predominantly sexual mode of transmission; Z72.89 Other problems related to lifestyle

== ENCOUNTER → 2025-05-26 | Outpatient (CLI) | payer MEDICARE | LOC: M WHC 08:26 | DX: M85.852 Other specified disorders of bone density and structure, left thigh (principal); M85.851 Other specified disorders of bone density and structure, right thigh ==

== ENCOUNTER → 2025-05-26 | Outpatient (CLI) | payer MEDICARE ==
[2025-05-26 13:25] LABS: PLATELET COUNT, AUTOMATED 193 10^3/uL (150-450)
[2025-05-26 13:34] LABS: FREE T4 0.89 NG/DL (0.89-1.76)
[2025-05-26 13:35] LABS: ALT/SGPT 15.0 U/L (7.0-40); AST/SGOT 19.0 U/L (<34); CALCIUM LEVEL 9.0 MG/DL (8.3-10.6); CARBON DIOXIDE LEVEL 27.0 MMOL/L (20-31); CHLORIDE LEVEL 105.0 MMOL/L (98-107); CHOLESTEROL LEVEL 205.0 MG/DL (<200); CHOLESTEROL RISK RATIO 3.17 (<5); CREATININE FOR GFR 1.0 MG/DL (0.55-1.30); GLOMERULAR FILTRATION RATE 62.1 (>45); LDL CHOLESTEROL 116.7 MG/DL (<100); NON-HDL-C 140.5 MG/DL; POTASSIUM SERUM 4.8 MMOL/L (3.5-5.1); SODIUM LEVEL 141.0 MMOL/L (136-145); TRIGLYCERIDES LEVEL 119.0 MG/DL (<150)
[2025-05-26 13:36] LABS: TOTAL 25(OH) VITAMIN D 71.1 NG/ML (20.0-100.0); VITAMIN B12 LEVEL 404.0 PG/ML (211-911)
[2025-05-26 13:50] LABS: ESTIMATED AVERAGE GLUCOSE 103.0 MG/DL (60-110)
== END ==
LOC: M PLALAB 09:23
DX: E78.2 Mixed hyperlipidemia (principal); Z13.0 Encounter for screening for diseases of the blood and blood-forming organs and certain disorders involving the immune mechanism; Z13.1 Encounter for screening for diabetes mellitus; F41.9 Anxiety disorder, unspecified; E67.3 Hypervitaminosis D; D64.9 Anemia, unspecified

== ENCOUNTER → 2025-07-31 | Outpatient (REF) | payer MEDICARE | LOC: M SFHCPLAZ 16:48 | PROVIDERS: ATTEND Family Medicine | DX: Z87.440 Personal history of urinary (tract) infections (principal) ==

== ENCOUNTER → 2025-09-01 | Outpatient (CLI) | payer MEDICARE ==
[2025-09-01 14:26] LABS: PLATELET COUNT, AUTOMATED 275 10^3/uL (150-450)
[2025-09-01 14:28] LABS: CORTISOL AM 14.2 UG/DL (4.3-22.4)
[2025-09-01 14:29] LABS: C REACTIVE PROTEIN QUANTITATIV 0.8 MG/DL (<1.0)
[2025-09-01 14:30] LABS: LUTEINIZING HORMONE 32.7 mIU/ML; THYROXINE (T4) 5.8 UG/DL (4.5-10.9)
[2025-09-01 14:34] LABS: T UPTAKE 25.8 % (22.5-37.0)
== END ==
LOC: M PLALAB 11:22
PROVIDERS: ATTEND Family Medicine
DX: R23.2 Flushing (principal); D64.9 Anemia, unspecified; R31.21 Asymptomatic microscopic hematuria

== ENCOUNTER → 2025-09-01 | Outpatient (CLI) | payer MEDICARE ==
[2025-09-01 14:28] LABS: ALT/SGPT 15.0 U/L (7.0-40); AST/SGOT 17.0 U/L (<34); CALCIUM LEVEL 10.7 MG/DL (8.3-10.6); CARBON DIOXIDE LEVEL 30.0 MMOL/L (20-31); CHLORIDE LEVEL 106.0 MMOL/L (98-107); CREATININE FOR GFR 0.99 MG/DL (0.55-1.30); GLOMERULAR FILTRATION RATE 62.9 (>45); POTASSIUM SERUM 4.0 MMOL/L (3.5-5.1); SODIUM LEVEL 146.0 MMOL/L (136-145)
== END ==
LOC: M PLALAB 11:25
PROVIDERS: ATTEND Student in an Organized Health Care Education/Training Program
DX: Z01.818 Encounter for other preprocedural examination (principal)

== ENCOUNTER → 2025-10-16 | Outpatient (REF) | payer MEDICARE ==
[2025-10-17 13:03] LABS: BVAB 2 NEGATIVE (NEGATIVE)
[2025-10-17 13:26] LABS: CANDIDA GLABRATA NAA NOT DETECTED (NOT DETECTED); TRICH VAG BY NAA NOT DETECTED (NOT DETECTED)
[2025-10-17 14:47] LABS: CHLAMYDIA TRACHOMATIS NAA NOT DETECTED (NOT DETECTED)
== END ==
LOC: M SFHCPLAZ 09:58
PROVIDERS: ATTEND Physician Assistant
DX: N89.8 Other specified noninflammatory disorders of vagina (principal); Z11.3 Encounter for screening for infections with a predominantly sexual mode of transmission; Z72.89 Other problems related to lifestyle